=== PATIENT | female | born 1945 | race Caucasian/White ===

== ENCOUNTER 2022-05-02 07:13 | Observation (INO) | payer MEDICARE, SELFPAY ==
[2022-05-02] VITALS (13 sets, daily range): BP systolic 85–186; BP diastolic 64–100; PULSE 70–98; RESP 14–18; TEMP 36.7–36.9; O2SAT 96–99; BMI 24.7; BMI 24.3
--- NOTE | 2022-05-02 07:35 | EKG12_ITS ---
Test Reason : SYNCOPE Blood Pressure : / mmHG Vent. Rate : 077 BPM Atrial Rate : 077 BPM P-R Int : 142 ms QRS Dur : 106 ms QT Int : 386 ms P-R-T Axes : 048 046 039 degrees QTc Int : 436 ms Sinus rhythm with sinus arrhythmia with occasional Premature ventricular complexes Otherwise normal ECG Confirmed by BRITT CAMEJO, DENNIS ([id number]), editor house organ NHUNG KARIMI ([id number]) on 05/07/2022 7:32:06 AM Referred By: POLO Confirmed By:DENNIS DE LA TORRE MD
--- NOTE | 2022-05-02 07:36 | EX.ED.DYSGE1 ---
HPI History of Present Illness Chief Complaint: Syncope Informant: patient Narrative Narrative: 74-year-old female presenting with palpitations episode of syncope. States she has a history of proximal atrial fibrillation and is currently on Xarelto, Cardizem and flecainide for this. She is follows with cardiology and [place] through [facility]. She states she been feeling a little lightheaded for the past week but this morning she felt that her heart was racing and then her head started swimming. She tried to sit down but then passed out. She states she fell against the lower cabinets to the ground and did not hit her head. She notes that she does have a history of passing out when she gets palpitations but has not had this in quite some time. [place] nauseous in route to the ER but was given Zofran and that has since resolved as well. Did have a COVID booster yesterday so she is not sure if this is related. Currently all of her symptoms are resolved and she states she feels better. Denies any black or blood in her stool. Denies any chest pain. Denies any difficulty breathing. No swelling of her legs. No other complaints at this time. States she has not missed any doses of her Xarelto. [facility] Medical History Afib HTN (hypertension) Hypercholesteremia Home Medications atorvastatin 40 mg PO DAILY 05/02/22 [History Last Taken Unknown] diltiazem HCl 120 mg PO Q12H 05/02/22 [History Last Taken Unknown] flecainide 50 mg PO Q12H 05/02/22 [History Last Taken Unknown] lutein 20 mg PO DAILY 05/02/22 [History Last Taken Unknown] rivaroxaban [Xarelto] 20 mg PO DAILY 05/02/22 [History Last Taken Unknown] Allergy/AdvReac Type Severity Reaction Status Date / Time No Known Allergies Allergy Verified 05/02/22 07:13 Surgical History Hx of tonsillectomy Social History Smoking Status: Never smoker ROS ROS ED Constitutional Constitutional ED: Denies chills, fever(s) or sweats Eyes Eyes: Denies blurry vision or change in vision ENT ENT ED: Denies rhinorrhea or sore throat Cardiovascular Cardiovascular: Reports palpitations and racing heartbeat; Denies chest pain Respiratory/Chest Respiratory/Chest: Denies cough, dyspnea or dyspnea on exertion Gastrointestinal Gastrointestinal: Reports nausea; Denies abdominal pain, constipation, diarrhea, melena or vomiting Genitourinary Genitourinary ED: Reports urinary frequency; Denies dysuria or hematuria Musculoskeletal Musculoskeletal: Denies arthralgias or myalgias Integumentary Denies rash Neurologic Neurologic: Denies headache(s), paresthesias or weakness Psychiatric Psychiatric: Denies depression EXAM Physical Exam Const Vital Signs: 05/02/22 07:14 05/02/22 07:20 05/02/22 09:23 Temperature 98.4 F Temperature Source Oral Pulse Rate 77 77 Pulse Rate [Lying] Pulse Rate [Sitting (for 1 minute prior to obtaining)] Pulse Rate [Standing (for 1 minute prior to obtaining)] Respiratory Rate 16 18 Respiratory Effort Normal Non-Labored Respiratory Pattern Normal Blood Pressure 158/89 H 144/64 H Blood Pressure [Lying] Blood Pressure [Sitting (for 1 minute prior to obtaining)] Blood Pressure [Standing (for 1 minute prior to obtaining)] Blood Pressure Mean 112 90 Blood Pressure Mean [Lying] Blood Pressure Mean [Sitting (for 1 minute prior to obtaining)] Blood Pressure Mean [Standing (for 1 minute prior to obtaining)] Pulse Ox 97 97 Oxygen Delivery Method Room Air Room Air 05/02/22 09:31 05/02/22 10:49 05/02/22 10:50 Temperature Temperature Source Pulse Rate 75 Pulse Rate [Lying] 70 75 Pulse Rate [Sitting (for 1 minute prior to obtaining)] 73 74 Pulse Rate [Standing (for 1 minute prior to obtaining)] 98 83 Respiratory Rate 14 Respiratory Effort Respiratory Pattern Blood Pressure 170/68 H Blood Pressure [Lying] 160/78 H 170/68 H Blood Pressure [Sitting (for 1 minute prior to obtaining)] 145/78 H 173/100 H Blood Pressure [Standing (for 1 minute prior to obtaining)] 85/64 L 138/78 H Blood Pressure Mean 102 Blood Pressure Mean [Lying] 105 102 Blood Pressure Mean [Sitting (for 1 minute prior to obtaining)] 100 124 Blood Pressure Mean [Standing (for 1 minute prior to obtaining)] 71 98 Pulse Ox 96 Oxygen Delivery Method Room Air 05/02/22 11:36 Temperature 98.2 F Temperature Source Oral Pulse Rate 71 Pulse Rate [Lying] Pulse Rate [Sitting (for 1 minute prior to obtaining)] Pulse Rate [Standing (for 1 minute prior to obtaining)] Respiratory Rate 16 Respiratory Effort Respiratory Pattern Blood Pressure 186/75 H Blood Pressure [Lying] Blood Pressure [Sitting (for 1 minute prior to obtaining)] Blood Pressure [Standing (for 1 minute prior to obtaining)] Blood Pressure Mean 112 Blood Pressure Mean [Lying] Blood Pressure Mean [Sitting (for 1 minute prior to obtaining)] Blood Pressure Mean [Standing (for 1 minute prior to obtaining)] Pulse Ox 97 Oxygen Delivery Method Room Air Positive well nourished and well developed General Appearance ED: well developed and NAD HEENT Reports moist mucous membranes Negative for trauma Eyes PERRL and EOMs intact bilaterally Neck supple and no JVD Chest Wall inspection of chest normal Resp normal respiratory effort and clear to auscultation bilaterally Cardio regular rate, regular rhythm and no murmurs GI normal to inspection, nondistended, normoactive bowel sounds and non-tender Palpation: soft Extremity normal to inspection General Extremety ED: Negative for edema or tenderness General Extremity: Negative for edema Neuro oriented x3 Neuro Narrative: No focal deficits appreciated Sensorium / Orientation: alert Motor Exam: Negative for general weakness Psych mental status grossly normal Skin no rashes or lesions noted and no wounds MDM MDM MDM Narrative Medical decision making narrative: Patient evaluated for an episode of syncope. Is proceeding with palpitations. She notes has been more lightheaded and had some increased nocturnal urinary frequency for the past week. Does have remote history of atrial fibrillation causing syncope but states that since she has been on her current medication regimen she has not had that issue. Did get her COVID booster yesterday and is not sure if that is related. Work-up largely unremarkable including negative delta high-sensitivity troponin. Given that she has been compliant with her Xarelto not missed any doses have a low suspicion for PE and I do not think a D-dimer is indicated. She is not hypoxic complaining of any shortness of breath. Patient is orthostatic positive initially. She is given a total 1.5 L of IV fluid in the emergency room and continues to be orthostatic and also symptomatic with it. Patient will be admitted for further observation given her persistent orthostasis. Urine culture sent as she does have 10-25 white blood cells with 1+ bacteria however given that she does not have a fever, leukocytosis or other symptoms will defer treatment at this time. This was discussed with admitting physician, Dr. Davis. Lab Data Attestation: I reviewed the patient's lab results. Labs: Laboratory Results - last 24 hr 05/02/22 05/02/22 05/02/22 07:23 07:23 08:09 WBC 9.7 RBC 4.11 L Hgb 12.5 Hct 38.4 MCV 93.4 MCH 30.4 MCHC 32.6 RDW Std Deviation 46.5 H RDW Coeff of [place] 13.6 Plt Count 327 MPV 9.2 Immature Gran % (Auto) 0.500 Neut % (Auto) 80.3 H Lymph % (Auto) 9.5 L [place] % (Auto) 6.9 Eos % (Auto) 2.3 Baso % (Auto) 0.5 Absolute Neuts (auto) 7.8 H Absolute Lymphs (auto) 0.92 Nucleated RBC % 0 Sodium 138 Potassium 4.0 Chloride 102 Carbon Dioxide 28.0 Anion Gap 8 BUN 16 Creatinine 0.88 Estim Creat Clear Calc 51.24 Est GFR (MDRD) Af Amer 80 Est GFR (MDRD) Non-Af 66 BUN/Creatinine Ratio 18.2 Glucose 123 H Calcium 9.6 Troponin I High Sens 6 TSH 3.69 Urine Color Yellow Urine Clarity Sl. Cloudy Urine pH 8.0 Ur Specific [place] 1.015 Urine Protein 15 H Urine Glucose (UA) Normal Urine Ketones Negative Urine Occult Blood Negative Urine Nitrite Negative Urine Bilirubin Negative Urine Urobilinogen Normal Ur Leukocyte Esterase 100 H Urine RBC 0 SEEN Urine WBC 10-25 SEEN Ur Squamous Epith Cells 0-5 SEEN Urine Bacteria 1+ Urine Mucus 0 SEEN 05/02/22 09:50 WBC RBC Hgb Hct MCV MCH MCHC RDW Std Deviation RDW Coeff of [place] Plt Count MPV Immature Gran % (Auto) Neut % (Auto) Lymph % (Auto) [place] % (Auto) Eos % (Auto) Baso % (Auto) Absolute Neuts (auto) Absolute Lymphs (auto) Nucleated RBC % Sodium Potassium Chloride Carbon Dioxide Anion Gap BUN Creatinine Estim Creat Clear Calc Est GFR (MDRD) Af Amer Est GFR (MDRD) Non-Af BUN/Creatinine Ratio Glucose Calcium Troponin I High Sens 9 TSH Urine Color Urine Clarity Urine pH Ur Specific [place] Urine Protein Urine Glucose (UA) Urine Ketones Urine Occult Blood Urine Nitrite Urine Bilirubin Urine Urobilinogen Ur Leukocyte Esterase Urine RBC Urine WBC Ur Squamous Epith Cells Urine Bacteria Urine Mucus Radiography Chest X-Ray - ED: 1 View, Read by ED Physician, Read by Radiologist and No Acute Disease Diagnostic Testing: Clinical Impression(s) from Imaging Studies Chest X-Ray 05/02/22 07:45 IMPRESSION: Hyperinflation. No acute abnormality is seen. Electronically Signed: Palmer Wright MD at 8:01 EDT , Rhythm Strip Rhythm Strip: Sinus Rhythm Rate: 77 Ectopy: PVC(s) EKG Initial EKG: Attestation: I personally reviewed and interpreted this EKG as follows: Interpretation: Sinus Rhythm Comments: Normal sinus rhythm with sinus arrhythmia and PVCs at a rate of 77 Normal intervals Normal axis Normal ST segments Discharge Plan Triage Chief Complaint: Syncope ED Provider: Frida Mg Dx/Rx/DC Orders Clinical Impression: Syncope and collapse, Orthostasis, History of atrial fibrillation, Chronic anticoagulation Primary Care Provider: Deven Dunaway Disposition Disposition: Acute Care [facility]
[2022-05-02 07:44] LABS: Absolute Lymphocyte Count 0.92 X10^3/uL (0.83-4.51); Absolute Neutrophil Count 7.8 X10^3/uL (2.0-7.7); Basophil# 0.05 X10^3/uL; Basophil% 0.5 % (0-1); Eosinophil# 0.22 X10^3/uL; Eosinophils% 2.3 % (0-5); Hematocrit 38.4 % (37-47); Hemoglobin 12.5 g/dL (12.0-15.0); Lymphocyte # 0.92 X10^3/ul (0.83-4.51); Lymphocyte % 9.5 % (19-41); Mean Corp Hgb Conc 32.6 g/dL (32-36); Mean Corpuscular Hgb 30.4 pg (27.0-32.0); Mean Corpuscular Volume 93.4 fL (81-99); Mean Platelet Vol. 9.2 fl (6.2-12.0); Monocyte# 0.67 X10^3/uL; Monocyte% 6.9 % (0-10); NRBC Flagged by Analyzer 0 % (0-5); Neutrophil # 7.76 X10^3/uL (2.7-7.7); Neutrophil % 80.3 % (47-70); Platelet Count 327 K/mm3 (150-450); RBC Distribution Width CV 13.6 % (11.6-14.6); RBC Distribution Width SD 46.5 fl (35.1-43.9); Red Blood Count 4.11 M/mm3 (4.2-5.4); White Blood Count 9.7 K/mm3 (4.4-11.0)
--- NOTE | 2022-05-02 07:45 | RAD_ITS ---
STUDY: X-RAY CHEST REASON FOR EXAM: Female, 76 years old. Syncope TECHNIQUE: Single AP portable view of the chest. COMPARISON: None. FINDINGS: EKG electrodes are seen. Hyperinflation. There is no demonstrated pleural abnormality. Normal size heart. Normal mediastinum and praful. Normal visualized pulmonary arteries. There is atherosclerotic calcification of the aortic arch with tortuosity. There are diffuse degenerative changes of the visualized thoracic spine. There is degenerative osteoarthritis of the bilateral shoulders. There is no demonstrated abnormality of the visualized soft tissue structures of the upper abdomen. RAD/Chest 1 View (Portable) IMPRESSION: Hyperinflation. No acute abnormality is seen. Electronically Signed: Palmer Wright MD at 8:01 EDT ,
[2022-05-02 08:09] LABS: Anion Gap 8 (5-15); BUN 16 mg/dL (7-18); BUN/Creat Ratio 18.2 RATIO (10-20); Calcium,Total 9.6 mg/dL (8.5-10.1); Chloride 102 mmol/L (98-107); Creatinine, Serum 0.88 mg/dL (0.55-1.02); EST Glomerular Filtration Rate 66 mL/min (>60); Est Glom Filt Rate - Afr Amer 80 mL/min (>60); Estimated Creatinine Clearance 51.24 ml/min; Glucose 123 mg/dL (74-106); Sodium Level 138 mmol/L (136-145); Thyroid Stim Hormone (TSH) 3.69 uIU/mL (0.358-3.74); Troponin-I HS (w/2H Reflex) 6 pg/mL (3.0-54.0)
[2022-05-02 08:14] LABS: Color, Urine Yellow (Yellow); Glucose, Dipstick Normal (Normal); Ketone-Dipstick Negative (Negative); Leukocyte Esterase-Dipstick 100 /ul (Negative); Mucous, Urine 0 SEEN /hpf (<or=2+); Nitrite-Dipstick Negative (Negative); Occult Blood-Urine Negative /ul (Negative); Protein-Dipstick 15 mg/dl (Negative); Red Blood Cells-Urine 0 SEEN /hpf (0-5); Specific Gravity, Urine 1.015 (1.002-1.030); Urine Bilirubin Dipstick Negative (Negative); Urine Clarity Sl. Cloudy (Clear); Urine Urobilinogen Normal (Normal)
[2022-05-02 08:20] LABS: Bacteria 1+ /hpf (None Seen); Squamous Epithelial Cells - UA 0-5 SEEN /hpf (5-10); White Blood Cells 10-25 SEEN /hpf (0-5)
[2022-05-02 09:43] LABS: Reflex Troponin-HS? (from REC) Y
[2022-05-02] MEDS: 0.9% Normal Saline 1,000 ML 999 ML IV (09:53)
[2022-05-02 10:13] LABS: Troponin-I HS 9 pg/mL (3.0-54.0)
--- NOTE | 2022-05-02 13:11 | HP.PCM.HOS_ITS ---
HPI - General General Date of Admission: 05/02/22 Date of Service: 05/02/22 Chief Complaint: syncope HPI Narrative EDWAR HURD, is a 76 F who presents with syncope. Patient was normocephalic and then today felt that her A. fib was acting up and felt dizzy and then passed out. Came to and overall felt better. Present to the emergency room and was not in A. fib but normal sinus. Did have orthostatic vital signs performed were closure dropped down to the 80s. Received fluids was still orthostatic and still symptomatic. Hospital service was contacted for admission. Patient has been complaining of progressive dyspnea with exertion. Denies any chest pain. [facility] Medical History Afib HTN (hypertension) Hypercholesteremia Home Medications atorvastatin 40 mg PO DAILY 05/02/22 [History Last Taken Unknown] diltiazem HCl 120 mg PO Q12H 05/02/22 [History Last Taken Unknown] flecainide 50 mg PO Q12H 05/02/22 [History Last Taken Unknown] lutein 20 mg PO DAILY 05/02/22 [History Last Taken Unknown] rivaroxaban [Xarelto] 20 mg PO DAILY 05/02/22 [History Last Taken Unknown] Allergy/AdvReac Type Severity Reaction Status Date / Time No Known Allergies Allergy Verified 05/02/22 07:13 Family History (Updated 05/02/22 @ 13:[address] Hieu Davis DO) Other CAD (coronary artery disease) Surgical History Hx of tonsillectomy Social History Smoking Status: Never smoker ROS ROS Narrative All review of systems were negative except as mentioned above in the history of present illness and the other review of systems. Vital Signs Vital Signs Vital Signs: 05/02/22 07:14 05/02/22 07:20 05/02/22 09:23 Temperature 36.9 C Temperature Source Oral Pulse Rate 77 77 Pulse Rate [Lying] Pulse Rate [Sitting (for 1 minute prior to obtaining)] Pulse Rate [Standing (for 1 minute prior to obtaining)] Respiratory Rate 16 18 Respiratory Effort Normal Non-Labored Respiratory Pattern Normal Blood Pressure 158/89 H 144/64 H Blood Pressure [Lying] Blood Pressure [Sitting (for 1 minute prior to obtaining)] Blood Pressure [Standing (for 1 minute prior to obtaining)] Blood Pressure Mean 112 90 Blood Pressure Mean [Lying] Blood Pressure Mean [Sitting (for 1 minute prior to obtaining)] Blood Pressure Mean [Standing (for 1 minute prior to obtaining)] Blood Pressure Source Blood Pressure Position Blood Pressure Location Pulse Ox 97 97 Oxygen Delivery Method Room Air Room Air 05/02/22 09:31 05/02/22 10:49 05/02/22 10:50 Temperature Temperature Source Pulse Rate 75 Pulse Rate [Lying] 70 75 Pulse Rate [Sitting (for 1 minute prior to obtaining)] 73 74 Pulse Rate [Standing (for 1 minute prior to obtaining)] 98 83 Respiratory Rate 14 Respiratory Effort Respiratory Pattern Blood Pressure 170/68 H Blood Pressure [Lying] 160/78 H 170/68 H Blood Pressure [Sitting (for 1 minute prior to obtaining)] 145/78 H 173/100 H Blood Pressure [Standing (for 1 minute prior to obtaining)] 85/64 L 138/78 H Blood Pressure Mean 102 Blood Pressure Mean [Lying] 105 102 Blood Pressure Mean [Sitting (for 1 minute prior to obtaining)] 100 124 Blood Pressure Mean [Standing (for 1 minute prior to obtaining)] 71 98 Blood Pressure Source Blood Pressure Position Blood Pressure Location Pulse Ox 96 Oxygen Delivery Method Room Air 05/02/22 11:36 05/02/22 12:48 05/02/22 13:09 Temperature 36.8 C 36.7 C Temperature Source Oral Temporal Pulse Rate 71 71 71 Pulse Rate [Lying] Pulse Rate [Sitting (for 1 minute prior to obtaining)] Pulse Rate [Standing (for 1 minute prior to obtaining)] Respiratory Rate 16 16 Respiratory Effort Respiratory Pattern Blood Pressure 186/75 H 185/75 H Blood Pressure [Lying] Blood Pressure [Sitting (for 1 minute prior to obtaining)] Blood Pressure [Standing (for 1 minute prior to obtaining)] Blood Pressure Mean 112 111 Blood Pressure Mean [Lying] Blood Pressure Mean [Sitting (for 1 minute prior to obtaining)] Blood Pressure Mean [Standing (for 1 minute prior to obtaining)] Blood Pressure Source Monitor Blood Pressure Position Semi-Fowlers Blood Pressure Location Left Arm Pulse Ox 97 99 Oxygen Delivery Method Room Air Room Air Weight Weight: 70.4 kg Body Mass Index (BMI) 24.3 Physical Exam Const alert General Appearance: cooperative Resp normal respiratory effort, no retractions, no use of accessory muscles and clear to auscultation bilaterally Cardio regular rate, regular rhythm, S1 normal heart sound and S2 normal heart sound GI normal to inspection, nondistended, normoactive bowel sounds, soft to palpation, non-tender and non-distended Extremity normal to inspection Neuro Sensorium / Orientation: awake and alert Results Lab / Micro Data Result Diagrams: 05/02/22 07:23 05/02/22 07:23 Labs: Laboratory Results - last 24 hr 05/02/22 07:23: WBC 9.7, RBC 4.11 L, Hgb 12.5, Hct 38.4, MCV 93.4, MCH 30.4, MCHC 32.6, RDW Std Deviation 46.5 H, RDW Coeff of Gordon 13.6, Plt Count 327, MPV 9.2, Immature Gran % (Auto) 0.500, Neut % (Auto) 80.3 H, Lymph % (Auto) 9.5 L, [place] % (Auto) 6.9, Eos % (Auto) 2.3, Baso % (Auto) 0.5, Absolute Neuts (auto) 7.8 H, Absolute Lymphs (auto) 0.92, Nucleated RBC % 0 05/02/22 07:23: Sodium 138, Potassium 4.0, Chloride 102, Carbon Dioxide 28.0, Anion Gap 8, BUN 16, Creatinine 0.88, Estim Creat Clear Calc 51.24, Est GFR (MDRD) Af Amer 80, Est GFR (MDRD) Non-Af 66, BUN/Creatinine Ratio 18.2, Glucose 123 H, Calcium 9.6, Troponin I High Sens 6, TSH 3.69 05/02/22 08:09: Urine Color Yellow, Urine Clarity Sl. Cloudy, Urine pH 8.0, Ur Specific [place] 1.015, Urine Protein 15 H, Urine Glucose (UA) Normal, Urine Ket ones Negative, Urine Occult Blood Negative, Urine Nitrite Negative, Urine Bilirubin Negative, Urine Urobilinogen Normal, Ur Leukocyte Esterase 100 H, Urine RBC 0 SEEN, Urine WBC 10-25 SEEN, Ur Squamous Epith Cells 0-5 SEEN, Urine Bacteria 1+, Urine Mucus 0 SEEN 05/02/22 09:50: Troponin I High Sens 9 Rhythm Strip Rhythm Strip: Sinus Rhythm Rate: 77 Ectopy: PVC(s) Radiology Impression Chest X-Ray 05/02/22 07:45 IMPRESSION: Hyperinflation. No acute abnormality is seen. Electronically Signed: Palmer Wright MD at 8:01 EDT , Assessment & Plan Assessment/Plan (1) Syncope and collapse: (2) Orthostasis: PLAN: 1. Syncope * Suspect due to orthostatic hypotension * Cannot rule out A. fib being etiology though currently is normal sinus rhythm. * Did receive IV fluids in the emergency room. * Currently hypertensive. We will hold off on additional fluids and recheck orthostatic vital signs in the morning. 2. Dyspnea on exertion * Chronic * But worsening * Check stress test 3. Chronic atrial fibrillation * Paroxysmal * Continue with diltiazem, flecainide * Anticoagulated with rivaroxaban Charges/Coding Visit Charges OBSV E&M: 87524 Initial observation care L2
[2022-05-02 14:35] LABS: Troponin-I HS 12 pg/mL (3.0-54.0)
[2022-05-02] MEDS: Rivaroxaban 20 MG Tablet PO (18:12)
[2022-05-02] MEDS: Flecainide 100 MG Tablet 50 MG PO (21:59)
[2022-05-02] MEDS: dilTIAZem CD 120 MG Capsule PO (21:59)
[2022-05-02] MEDS: 0.9% Saline Lock 10 ML Syringe IV (22:00)
[2022-05-03] VITALS (8 sets, daily range): BP systolic 117–206; BP diastolic 77–97; PULSE 67–97; RESP 16; TEMP 36.6–36.9; O2SAT 96–98
[2022-05-03] MEDS: Acetaminophen 325 MG Tablet 650 MG PO (00:58)
--- NOTE | 2022-05-03 05:55 | EKG12_ITS ---
Test Reason : AM EKG Blood Pressure : / mmHG Vent. Rate : 067 BPM Atrial Rate : 067 BPM P-R Int : 150 ms QRS Dur : 102 ms QT Int : 398 ms P-R-T Axes : 043 049 045 degrees QTc Int : 420 ms Normal sinus rhythm Normal ECG Confirmed by ARABELLA CAMEJO, SUDHEER ([id number]), editor trade journal NHUNG KARIMI ([id number]) on 05/07/2022 7:27:13 AM Referred By: REHANA Confirmed By:SUDHEER BELL MD
--- NOTE | 2022-05-03 07:56 | PN.HOSP_ITS ---
Subjective Subjective Feels good. Not dizzy upon standing. Objective Data Objective Data Vital Signs: Vital Signs Temp Pulse Resp BP Pulse Ox 36.6 C 70 16 181/77 H 96 05/03/22 04:00 05/03/22 07:00 05/03/22 04:00 05/03/22 04:05 05/03/22 04:00 Oxygen Delivery Method Room Air Weight: 70.4 kg Body Mass Index (BMI) 24.3 Intake & Output: Intake and Output for Last 24 Hours 05/01/22 05/02/22 05/03/22 23:59 23:59 23:59 Intake Total 1740 / 1740 Balance 1740 / 1740 Lab / Micro Data Result Diagrams: 05/02/22 07:23 05/02/22 07:23 Labs: Laboratory Results - last 24 hr 05/02/22 07:23: Sodium 138, Potassium 4.0, Chloride 102, Carbon Dioxide 28.0, Anion Gap 8, BUN 16, Creatinine 0.88, Estim Creat Clear Calc 51.24, Est GFR (MDRD) Af Amer 80, Est GFR (MDRD) Non-Af 66, BUN/Creatinine Ratio 18.2, Glucose 123 H, Calcium 9.6, Troponin I High Sens 6, TSH 3.69 05/02/22 08:09: Urine Color Yellow, Urine Clarity Sl. Cloudy, Urine pH 8.0, Ur Specific [place] 1.015, Urine Protein 15 H, Urine Glucose (UA) Normal, Urine Ketones Negative, Urine Occult Blood Negative, Urine Nitrite Negative, Urine Bilirubin Negative, Urine Urobilinogen Normal, Ur Leukocyte Esterase 100 H, Urine RBC 0 SEEN, Urine WBC 10-25 SEEN, Ur Squamous Epith Cells 0-5 SEEN, Urine Bacteria 1+, Urine Mucus 0 SEEN 05/02/22 09:50: Troponin I High Sens 9 05/02/22 14:00: Troponin I High Sens 12 Radiography Diagnostic Testing: Radiology Impression Chest X-Ray 05/02/22 07:45 IMPRESSION: Hyperinflation. No acute abnormality is seen. Electronically Signed: Palmer Wright MD at 8:01 EDT , Rhythm Strip Rhythm Strip: Sinus Rhythm Rate: 77 Ectopy: PVC(s) Physical Exam Const alert and no apparent distress Resp normal respiratory effort, no retractions, no use of accessory muscles and clear to auscultation bilaterally Cardio regular rate, regular rhythm, S1 normal heart sound and S2 normal heart sound GI normal to inspection, nondistended, normoactive bowel sounds, soft to palpation, non-tender and non-distended Extremity normal to inspection Assessment & Plan Assessment/Plan (1) Syncope and collapse: (2) Orthostasis: PLAN: 1. Syncope * Suspect due to orthostatic hypotension * Cannot rule out A. fib being etiology though currently is normal sinus rhythm. * Did receive IV fluids in the emergency room. * Currently hypertensive. We will hold off on additional fluids and recheck orthostatic vital signs in the morning. 2. Dyspnea on exertion * Chronic * But worsening * Check stress test 3. Chronic atrial fibrillation * Paroxysmal * Continue with diltiazem, flecainide * Anticoagulated with rivaroxaban 4. Orthostatic hypotension * ongoing * check cortisol Charges/Coding Visit Charges OBSV E&M: 17090 Subsequent observation care L2
[2022-05-03] MEDS: Flecainide 100 MG Tablet 50 MG PO (08:50)
[2022-05-03] MEDS: dilTIAZem CD 120 MG Capsule PO (10:50)
--- NOTE | 2022-05-03 14:21 | STRESSREP ---
Stress Test Report Lexiscan myocardial perfusion stress test. Indication; 76-year-old female with history of paroxysmal atrial fibrillation, presented to the ER at the [facility] with syncopal episode. Also had symptoms of dyspnea on exertion Patient was on medical therapy with Cardizem, Tambocor, Xarelto and has hyperlipidemia and has been on Lipitor. Based on clinical presentation she is scheduled for Lexiscan sestamibi stress test. Stress protocol: Resting EKG demonstrates. Normal sinus rhythm. 0.4 mg of regadenoson was infused per usual protocol followed by rapid intravenous saline flush injection continuous EKG monitoring was performed. The maximum heart rate attained was 114 bpm which was 80% of maximum predicted heart . Stress EKG showed, no significant change from the resting EKG, with maximum heart rate of 114bpm. Arrhythmia: Frequent episodes of premature ventricular complexes/PVCs Symptoms: Patient had no symptoms of chest pain Blood pressure at rest: 158/88 mmHg blood pressure at the end of stress: 158/88 mmHg Myocardial perfusion protocol. 10 mCi ]of Technetium 99m Sestamibi was injected at rest. [ 0.4 mg ]of Regadenoson was infused per usual protocol peak infusion 31.9 mCi ]of Technetium 99m sestamibi was injected. Stress images were obtained stress and rest images were reconstructed and compared in the short axis vertical and horizontal long axis. Gated images were also obtained Perfusion SPECT analysis: Review of the images demonstrate normal uptake of sestamibi at rest, post stress images demonstrate similar uptake of sestamibi to the resting images, homogeneous tracer uptake With no evidence of reversible myocardial ischemia. Reduced Gated SPECT analysis: The gated SPECT images revealed normal LV systolic function Normal LV wall motion. Calculated ejection fraction 73%. Conclusion: Negative Lexiscan sestamibi myocardial perfusion study for reversible myocardial ischemia Normal LV systolic function Gabby Dutton MD,FACC,[facility]
--- NOTE | 2022-05-03 14:39 | PCM.DC ---
Discharge Instructions Diet Discharge Diet: No restrictions Activity Additional Activity Instructions:: get up slowly Dressing / Incision Call your doctor if you observe: Shortness of breath and Dizziness Follow Up Care Test Results: Test results from this visit will be discussed in further detail at your follow-up appointment, if applicable. Discharge Plan Admission Admit Date/Time: 05/02/22 13:08 Primary Reason for Your Visit: syncope Attending Provider: Hieu Davis Primary Care Provider: Deven Dunaway Discharge Orders/Prescriptions Prescriptions: Continued atorvastatin 40 mg Tablet 40 mg PO DAILY RF: 0 diltiazem HCl 120 mg Capsule,Extended Release 12 Hr 120 mg PO Q12H RF: 0 flecainide 50 mg Tablet 50 mg PO Q12H RF: 0 Xarelto 20 mg Tablet 20 mg PO DAILY RF: 0 lutein 20 mg Tablet 20 mg PO DAILY RF: 0 Referrals / Follow Up: Deven Dunaway MD [Primary Care Provider] - Within 2 Weeks Disposition Disposition (needs filled in before D/C Order can be placed): Home, Self Care
--- NOTE | 2022-05-03 14:51 | PCM.DC.SUM ---
Providers Date of Admission: 05/02/22 Primary Care Physician: Dr. Deven Dunaway MD Reason For Visit: SYNCOPE ORTHOSTATIC Diagnosis Discharge Diagnosis (1) Syncope and collapse: Status: Acute Code(s): R55 - Syncope and collapse (2) Orthostasis: Status: Acute Code(s): I95.1 - Orthostatic hypotension Medications at Discharge Home Medications Xarelto 20 mg PO DAILY 05/02/22 atorvastatin 40 mg PO DAILY 05/02/22 diltiazem HCl 120 mg PO Q12H 05/02/22 flecainide 50 mg PO Q12H 05/02/22 lutein 20 mg PO DAILY 05/02/22 Hospital Course Operations None Procedures Stress test Summary of Care Provided Minutes Spent on Discharge: 32 Hospital Course: 1. Syncope Suspect due to orthostatic hypotension Cannot rule out A. fib being etiology though currently is normal sinus rhythm. Did receive IV fluids in the emergency room. Currently hypertensive. We will hold off on additional fluids and recheck orthostatic vital signs in the morning. 2. Dyspnea on exertion Chronic But worsening Stress test negative 3. Chronic atrial fibrillation Paroxysmal Continue with diltiazem, flecainide Anticoagulated with rivaroxaban 4. Orthostatic hypotension ongoing cortisol negative currently asymptomatic advised to get up slowly. 5.HTN BP has been high, unfortunately pt is profoundly orthostatic. Weight / BMI Weight Weight: 70.4 kg Body Mass Index (BMI) 24.3 ABG / Lab / Microbiology Data Result Diagrams: 05/02/22 07:23 05/02/22 07:23 Laboratory: Laboratory Results - last 24 hr 05/03/22 08:23: Cortisol 15.20 Microbiology: Microbiology 05/02/22 08:09 Urine, Clean Catch Urine Culture - Preliminary Culture exhibits no growth. D/C Instructions Discharge Diet: No restrictions Additional Activity Instructions: get up slowly Call your doctor if you observe: Shortness of breath and Dizziness Meaningful Use Info Meaningful Use Diagnoses (Choose all that apply): None applicable Discharge Plan Admission Admit Date/Time: 05/02/22 13:08 Primary Reason for Your Visit: syncope Attending Provider: Hieu Davis Primary Care Provider: Deven Dunaway Discharge Orders/Prescriptions Prescriptions: Continued atorvastatin 40 mg Tablet 40 mg PO DAILY RF: 0 diltiazem HCl 120 mg Capsule,Extended Release 12 Hr 120 mg PO Q12H RF: 0 flecainide 50 mg Tablet 50 mg PO Q12H RF: 0 Xarelto 20 mg Tablet 20 mg PO DAILY RF: 0 lutein 20 mg Tablet 20 mg PO DAILY RF: 0 Referrals / Follow Up: Deven Dunaway MD [Primary Care Provider] - Within 2 Weeks Disposition Disposition (needs filled in before D/C Order can be placed): Home, Self Care Charges/Coding Visit Charges OBSV E&M: 10754 Observation care discharge
--- NOTE | 2022-05-03 15:05 | CASEMGMT ---
This RN JERSON to room with CHOE form, explanation done-pt voices understanding, and signs CHOE form. Original to chart and copy to pt. Pt voices no further questions/concerns/needs. [place] CM
== END 2022-05-03 14:48 | disposition home or self-care (01) ==
LOC: ED 08:13 → PCU 11:59
PROVIDERS: Emergency Provider Emergency Medicine; PCP Family Medicine
DX: I95.1 Orthostatic hypotension (principal); I48.0 Paroxysmal atrial fibrillation; E78.00 Pure hypercholesterolemia, unspecified; I10 Essential (primary) hypertension; R00.2 Palpitations; R35.0 Frequency of micturition; Z79.01 Long term (current) use of anticoagulants; Z79.899 Other long term (current) drug therapy; Z82.49 Family history of ischemic heart disease and other diseases of the circulatory system; R06.00 Dyspnea, unspecified
CPT/HCPCS: 36415; 71045; 78452; 80048; 81001; 82533; 84443; 84484; 85025; 87086; 87088; 93005; 93017; 96360; 96361; 99218; 99285; A9500; J7030; J7040; A4216; G0378; J2785

== ENCOUNTER 2022-07-06 14:24 | Emergency (ER) | payer MEDICARE, SELFPAY ==
[2022-07-06] VITALS (9 sets, daily range): BP systolic 98–160; BP diastolic 46–82; PULSE 81–110; RESP 14–22; TEMP 37.2; O2SAT 96–99; BMI 26.8
--- NOTE | 2022-07-06 14:32 | EKG12_ITS ---
Test Reason : SVT Blood Pressure : / mmHG Vent. Rate : 091 BPM Atrial Rate : 091 BPM P-R Int : 132 ms QRS Dur : 098 ms QT Int : 346 ms P-R-T Axes : 034 046 070 degrees QTc Int : 425 ms Normal sinus rhythm Normal ECG Confirmed by ARABELLA CAMEJO, SUDHEER ([id number]), development editor NHUNG KARIMI ([id number]) on 07/09/2022 10:16:54 AM Referred By: LIAN/DOUGLAS Confirmed By:SUDHEER BELL MD
[2022-07-06 14:53] LABS: Absolute Lymphocyte Count 0.45 X10^3/uL (0.83-4.51); Absolute Neutrophil Count 8.6 X10^3/uL (2.0-7.7); Basophil# 0.02 X10^3/uL; Basophil% 0.2 % (0-1); Eosinophil# 0.01 X10^3/uL; Eosinophils% 0.1 % (0-5); Hematocrit 40.5 % (37-47); Lymphocyte # 0.45 X10^3/ul (0.83-4.51); Lymphocyte % 4.8 % (19-41); Mean Corp Hgb Conc 32.1 g/dL (32-36); Mean Corpuscular Hgb 30.1 pg (27.0-32.0); Mean Corpuscular Volume 93.8 fL (81-99); Mean Platelet Vol. 8.9 fl (6.2-12.0); Monocyte# 0.27 X10^3/uL; Monocyte% 2.9 % (0-10); NRBC Flagged by Analyzer 0 % (0-5); Neutrophil # 8.62 X10^3/uL (2.7-7.7); Neutrophil % 91.7 % (47-70); POSITIVE DIFFERENTIAL YES; Platelet Count 225 K/mm3 (150-450); RBC Distribution Width CV 14.1 % (11.6-14.6); RBC Distribution Width SD 48.7 fl (35.1-43.9); Red Blood Count 4.32 M/mm3 (4.2-5.4); White Blood Count 9.4 K/mm3 (4.4-11.0)
[2022-07-06 14:57] LABS: Anion Gap 8 (5-15); BUN 19 mg/dL (7-18); BUN/Creat Ratio 17.8 RATIO (10-20); Calcium,Total 8.8 mg/dL (8.5-10.1); Chloride 99 mmol/L (98-107); Creatinine, Serum 1.07 mg/dL (0.55-1.02); EST Glomerular Filtration Rate 53 mL/min (>60); Est Glom Filt Rate - Afr Amer 64 mL/min (>60); Estimated Creatinine Clearance 43.71 ml/min; Glucose 178 mg/dL (74-106); Potassium 3.5 mmol/L (3.5-5.1); Sodium Level 136 mmol/L (136-145); Troponin-I HS (w/2H Reflex) 27 pg/mL (3.0-54.0)
--- NOTE | 2022-07-06 15:00 | EDS_ITS ---
HPI <GAMA Siegel - Last Filed: 07/06/22 18:56> History of Present Illness Chief Complaint: Syncope Narrative Narrative: 76-year-old female with history of atrial fibrillation on Xarelto, hypertension who sees cardiology at [facility] in [facility] presents to the emergency department after a syncopal episode, rapid heart rate. Per the , the patient has been having nausea and vomiting for the last 12 hours, every time the patient sat up or try to walk she became very dizzy, sweaty, feeling of dizziness that she describes as almost passing out. Patient had multiple syncopal episodes this morning when he called the ambulance, the ambulance noticed the patient had a rapid heartbeat concerning for SVT versus A. fib with RVR, due to her being unresponsive, they gave her Versed then shocked her putting her in a normal rhythm. Patient has been normal sinus rhythm since, patient denies any pain however still feels weak. PFSH <GAMA Siegel - Last Filed: 07/06/22 18:56> [facility] Medical History Afib HTN (hypertension) Hypercholesteremia Home Medications atorvastatin 40 mg tablet 40 mg PO DAILY cholesterol 05/02/22 [History Last Taken Unknown] diltiazem HCl 120 mg capsule,extended release 12 hr 120 mg PO Q12H heart rate 05/02/22 [History Last Taken Unknown] flecainide 50 mg tablet 50 mg PO Q12H heart rate 05/02/22 [History Last Taken Unknown] lutein 20 mg tablet 20 mg PO DAILY vitamin 05/02/22 [History Last Taken Unknown] rivaroxaban 20 mg tablet (Xarelto) 20 mg PO DAILY blood thinner 05/02/22 [History Last Taken Unknown] Allergy/AdvReac Type Severity Reaction Status Date / Time No Known Allergies Allergy Verified 05/02/22 07:13 Family History (Updated 05/02/22 @ 13:[address] Hieu Davis DO) Other CAD (coronary artery disease) Surgical History Hx of tonsillectomy Social History Smoking Status: Never smoker ROS <GAMA Siegel - Last Filed: 07/06/22 18:56> ROS ED ROS Narrative Constitutional: Negative for fever, chills, weight loss. Positive weakness Eyes: Negative for vision loss, vision change, double vision ENT: Negative for any sore throat, ear pain, congestion Cardiovascular: Negative for any chest pain, tightness, . Positive palpitations Respiratory: Negative for any cough, sputum production, hemoptysis, dyspnea, dyspnea on exertion, orthopnea Gastrointestinal: Negative for any abdominal pain, diarrhea, constipation, blood in stool, blood in vomit. Positive for nausea and vomiting : Negative for any urinary frequency, dysuria, retention, blood in urine Muscle skeletal: Negative for any muscle joint pain, stiffness, myalgias, arthralgias, neck pain, back pain Neurological: Negative for any headache, syncope, numbness or tingling, dizziness Skin: Negative for any rashes, lumps, itching, abrasions, lacerations Psychiatric: Negative for any depression, anxiety, stress, suicidal ideation, homicidal ideation Hematologic: Negative for any easy bruising, excessive bruising, easy bleeding Allergies: Negative for any eczema, hives, rash EXAM <GAMA Siegel - Last Filed: 07/06/22 18:56> Physical Exam Narrative Exam Narrative: Vital signs reviewed. Patient is alert and oriented x4. Patient is in normal sinus rhythm. HEET: Head normocephalic atraumatic, TMs clear bilaterally. Posterior pharynx is clear, moist mucous membranes. Nares clear bilaterally. Pupils equal round react to light. Patient does have a subconjunctival hemorrhage to the left eye from vomiting. Neck: Supple with no lymphadenopathy or tenderness. No signs of meningismus, negative jolt sign. Cardiac: Regular rate and rhythm no murmurs gallops or rubs, equal peripheral pulses bilaterally. Respiratory: Lungs clear to auscultation bilaterally. No chest tenderness. Abdomen: Soft, nontender, nondistended. No abdominal bruit or pulsatile masses. No hepatosplenomegaly Extremities: No peripheral edema, no signs of gross trauma or deformity. Active full range of motion of all extremities. Neuro: Cranial nerves II through XII intact, no focal neurological deficits. Skin: Clean dry and intact with no rash, purpura, petechiae, vesicles or pustules. Backs/flank: No CVA tenderness, no midline spinal tenderness, no deformity. Psych: Normal mood and affect. No SI, HI or acute psychosis. Const Vital Signs: 07/06/22 14:24 07/06/22 14:30 07/06/22 14:36 Temperature 98.9 F Temperature Source Oral Pulse Rate 100 Pulse Rate [Lying] Pulse Rate [Sitting (for 1 minute prior to obtaining)] Pulse Rate [Standing (for 1 minute prior to obtaining)] Respiratory Rate 18 Respiratory Effort Normal Respiratory Pattern Normal Blood Pressure 125/67 H Blood Pressure [Lying] Blood Pressure [Sitting (for 1 minute prior to obtaining)] Blood Pressure [Standing (for 1 minute prior to obtaining)] Blood Pressure Mean 86 Blood Pressure Mean [Lying] Blood Pressure Mean [Sitting (for 1 minute prior to obtaining)] Blood Pressure Mean [Standing (for 1 minute prior to obtaining)] Pulse Ox 97 96 Oxygen Delivery Method Room Air Room Air 07/06/22 15:49 07/06/22 15:49 07/06/22 16:14 Temperature Temperature Source Pulse Rate 88 86 Pulse Rate [Lying] 91 Pulse Rate [Sitting (for 1 minute prior to obtaining)] 98 Pulse Rate [Standing (for 1 minute prior to obtaining)] 98 Respiratory Rate 18 16 Respiratory Effort Respiratory Pattern Blood Pressure 142/68 H 136/74 H Blood Pressure [Lying] 125/57 H Blood Pressure [Sitting (for 1 minute prior to obtaining)] 112/74 Blood Pressure [Standing (for 1 minute prior to obtaining)] 98/72 Blood Pressure Mean 92 94 Blood Pressure Mean [Lying] 79 Blood Pressure Mean [Sitting (for 1 minute prior to obtaining)] 86 Blood Pressure Mean [Standing (for 1 minute prior to obtaining)] 80 Pulse Ox 96 96 Oxygen Delivery Method Room Air Room Air 07/06/22 17:00 07/06/22 17:43 07/06/22 18:00 Temperature Temperature Source Pulse Rate 87 92 Pulse Rate [Lying] 87 Pulse Rate [Sitting (for 1 minute prior to obtaining)] 93 Pulse Rate [Standing (for 1 minute prior to obtaining)] 110 H Respiratory Rate 14 14 Respiratory Effort Respiratory Pattern Blood Pressure 143/82 H 136/78 H Blood Pressure [Lying] 143/72 H Blood Pressure [Sitting (for 1 minute prior to obtaining)] 144/74 H Blood Pressure [Standing (for 1 minute prior to obtaining)] 106/46 L Blood Pressure Mean 102 97 Blood Pressure Mean [Lying] 95 Blood Pressure Mean [Sitting (for 1 minute prior to obtaining)] 97 Blood Pressure Mean [Standing (for 1 minute prior to obtaining)] 66 Pulse Ox 98 98 Oxygen Delivery Method Room Air Room Air 07/06/22 19:00 Temperature Temperature Source Pulse Rate 81 Pulse Rate [Lying] Pulse Rate [Sitting (for 1 minute prior to obtaining)] Pulse Rate [Standing (for 1 minute prior to obtaining)] Respiratory Rate 22 H Respiratory Effort Respiratory Pattern Blood Pressure 160/78 H Blood Pressure [Lying] Blood Pressure [Sitting (for 1 minute prior to obtaining)] Blood Pressure [Standing (for 1 minute prior to obtaining)] Blood Pressure Mean 105 Blood Pressure Mean [Lying] Blood Pressure Mean [Sitting (for 1 minute prior to obtaining)] Blood Pressure Mean [Standing (for 1 minute prior to obtaining)] Pulse Ox 96 Oxygen Delivery Method Room Air <Dr. Sanjya Michaud MD - Last Filed: 07/06/22 19:50> Physical Exam Const Vital Signs: 07/06/22 14:24 07/06/22 14:30 07/06/22 14:36 Temperature 98.9 F Temperature Source Oral Pulse Rate 100 Pulse Rate [Lying] Pulse Rate [Sitting (for 1 minute prior to obtaining)] Pulse Rate [Standing (for 1 minute prior to obtaining)] Respiratory Rate 18 Respiratory Effort Normal Respiratory Pattern Normal Blood Pressure 125/67 H Blood Pressure [Lying] Blood Pressure [Sitting (for 1 minute prior to obtaining)] Blood Pressure [Standing (for 1 minute prior to obtaining)] Blood Pressure Mean 86 Blood Pressure Mean [Lying] Blood Pressure Mean [Sitting (for 1 minute prior to obtaining)] Blood Pressure Mean [Standing (for 1 minute prior to obtaining)] Pulse Ox 97 96 Oxygen Delivery Method Room Air Room Air 07/06/22 15:49 07/06/22 15:49 07/06/22 16:14 Temperature Temperature Source Pulse Rate 88 86 Pulse Rate [Lying] 91 Pulse Rate [Sitting (for 1 minute prior to obtaining)] 98 Pulse Rate [Standing (for 1 minute prior to obtaining)] 98 Respiratory Rate 18 16 Respiratory Effort Respiratory Pattern Blood Pressure 142/68 H 136/74 H Blood Pressure [Lying] 125/57 H Blood Pressure [Sitting (for 1 minute prior to obtaining)] 112/74 Blood Pressure [Standing (for 1 minute prior to obtaining)] 98/72 Blood Pressure Mean 92 94 Blood Pressure Mean [Lying] 79 Blood Pressure Mean [Sitting (for 1 minute prior to obtaining)] 86 Blood Pressure Mean [Standing (for 1 minute prior to obtaining)] 80 Pulse Ox 96 96 Oxygen Delivery Method Room Air Room Air 07/06/22 17:00 07/06/22 17:43 07/06/22 18:00 Temperature Temperature Source Pulse Rate 87 92 Pulse Rate [Lying] 87 Pulse Rate [Sitting (for 1 minute prior to obtaining)] 93 Pulse Rate [Standing (for 1 minute prior to obtaining)] 110 H Respiratory Rate 14 14 Respiratory Effort Respiratory Pattern Blood Pressure 143/82 H 136/78 H Blood Pressure [Lying] 143/72 H Blood Pressure [Sitting (for 1 minute prior to obtaining)] 144/74 H Blood Pressure [Standing (for 1 minute prior to obtaining)] 106/46 L Blood Pressure Mean 102 97 Blood Pressure Mean [Lying] 95 Blood Pressure Mean [Sitting (for 1 minute prior to obtaining)] 97 Blood Pressure Mean [Standing (for 1 minute prior to obtaining)] 66 Pulse Ox 98 98 Oxygen Delivery Method Room Air Room Air 07/06/22 19:00 Temperature Temperature Source Pulse Rate 81 Pulse Rate [Lying] Pulse Rate [Sitting (for 1 minute prior to obtaining)] Pulse Rate [Standing (for 1 minute prior to obtaining)] Respiratory Rate 22 H Respiratory Effort Respiratory Pattern Blood Pressure 160/78 H Blood Pressure [Lying] Blood Pressure [Sitting (for 1 minute prior to obtaining)] Blood Pressure [Standing (for 1 minute prior to obtaining)] Blood Pressure Mean 105 Blood Pressure Mean [Lying] Blood Pressure Mean [Sitting (for 1 minute prior to obtaining)] Blood Pressure Mean [Standing (for 1 minute prior to obtaining)] Pulse Ox 96 Oxygen Delivery Method Room Air RASHID <GAMA Siegel - Last Filed: 07/06/22 18:56> RASHID Lab Data Labs: Laboratory Results - last 24 hr 07/06/22 07/06/22 07/06/22 14:33 14:33 16:23 WBC 9.4 RBC 4.32 Hgb 13.0 Hct 40.5 MCV 93.8 MCH 30.1 MCHC 32.1 RDW Std Deviation 48.7 H RDW Coeff of Gordon 14.1 Plt Count 225 MPV 8.9 Immature Gran % (Auto) 0.300 Neut % (Auto) 91.7 H Lymph % (Auto) 4.8 L [place] % (Auto) 2.9 Eos % (Auto) 0.1 Baso % (Auto) 0.2 Absolute Neuts (auto) 8.6 H Absolute Lymphs (auto) 0.45 L Nucleated RBC % 0 Differential Comment SEE COMMENT Diff Path Review May foll Platelet Estimate ADEQUATE RBC Morphology N CHROM Anisocytosis RARE Macrocytosis RARE Sodium 136 Potassium 3.5 Chloride 99 Carbon Dioxide 29.0 Anion Gap 8 BUN 19 H Creatinine 1.07 H Estim Creat Clear Calc 43.71 Est GFR (MDRD) Af Amer 64 Est GFR (MDRD) Non-Af 53 L BUN/Creatinine Ratio 17.8 Glucose 178 H Calcium 8.8 Troponin I High Sens 27 39 Radiography Diagnostic Testing: Clinical Impression(s) from Imaging Studies Chest X-Ray 07/06/22 15:15 IMPRESSION: No acute cardiopulmonary process identified. Electronically Signed: Sravani Aguilar MD at 15:43 EDT , EKG Normal sinus rhythm,: Attestation: I personally reviewed and interpreted this EKG as follows: Comments: Normal sinus rhythm, rate of 91 bpm, [place] 132 ms, QRS duration 98 ms, no acute ST elevation, no acute infarct noted Treatment and Re-Evaluation Narrative: Patient appears alert, oriented, patient's only complaint is slight dizziness. Patient presents to the emergency department for multiple syncopal episodes today, feeling of dizziness, nausea and vomiting last evening. Patient was brought here via EMS, the EMS thought that she was in SVT, due to her having a syncopal episode they did give her shock and put her in sinus rhythm. When looking at the rhythm, this did appear to be in rapid atrial fibrillation. Patient orthostatic positive on arrival, was given 2 L of normal saline. Patient's CBC was unremarkable, patient's chemistries show slight increase in her creatinine to 1.07, BUN of 19, patient's glucose 178, initial troponin was 27, repeat we were ordered. Patient's EKG does show normal sinus rhythm. On reassessment, patient does still feel slightly lightheaded, she was given oral fluid as well as another liter of normal saline. Patient received repeat orthostatic vital signs, this was done after the second liter of normal saline, patient was positive again with elevated heart rate to 110 with a drop of her blood pressure 144 over 74-106/46. Patient was ambulatory to the bathroom however was slightly dizzy with difficulty ambulating. Patient will receive 3rd L of IV fluids to ensure that she is no longer orthostatic and is safe to go home. <Dr. Sanjay Michaud MD - Last Filed: 07/06/22 19:50> [facility] Narrative Medical decision making narrative: I have personally performed a face to face assessment of the patient and have reviewed the JULES Note. I performed a substantive portion of the visit including all aspects of the following. My jasso findings include: History is is remarkable for nausea and vomiting for the past 24 hours. She had near syncopal sewed yesterday that are consistent with orthostatic symptoms. She is on anticoagulant for chronic atrial fibrillation. She denies black or maroon-colored stool. She denies blood in her diarrhea. She denies fever, chills night sweats. She denies headache. There is no head trauma per the . Patient has no recall that she passed out and is unaware that she was shocked. She apparently was shocked for paroxysmal supraventricular tachycardia per the paramedics. I had an opportunity to review the rhythm strip and patient was in A. fib. Concerned initially that she may have had Kaylee's phenomenon. Presently patient denies cardiac respiratory symptoms. She denies abdominal pain. She denies change in her vision. She was unaware that she had a subconjunctival hemorrhage. Subconjunctival hemorrhages noted on the left side. There is no evidence of head or facial trauma. Patient denies neck pain. She denies paresthesia, anesthesia or motor weakness presently or the time of the single episode. Exam is patient appears slightly pale. HEENT is remarkable for subconjunctival hemorrhage. Mucosa is dry. When questioned she does endorse dry mouth and thirst. There is no clinical findings of head trauma or basilar skull fracture. She has no cervical spine tenderness. Heart is regular regular. Rate is a approximately 100. There is no obvious murmur. There is no gallop. Lungs are clear to auscultation. Breath sounds are noted bilaterally. Abdomen is soft nontender. Is no pain the patient of the pelvis. Patient has a skin tear mid/distal third of the left forearm on the dorsal surface. There is no neurovascular compromise. Median, radial, ulnar and axillary nerve function are intact. GCS is 15. Neuro exam is nonfocal. Medical Decision Making after reviewing the rhythm strip suspect patient had orthostatic hypotension due to dehydration. This would explain her rapid heart rate. As previously mentioned patient did not have PSVT. She had A. fib with RVR and either apparent beats or premature ventricular beats. Other additions or changes: Recommend IV fluids, orthostatic vital signs, blood work to assess for renal dysfunction, anion gap and hypokalemia since she reports/endorses diarrhea. Suspect this is not of cardiac etiology. Patient was assessed after her third liter. She feels markedly better. She looks better. She would like to go home. Monitor reveals a sinus rhythm rate of 93. Lab Data Labs: Laboratory Results - last 24 hr 07/06/22 07/06/22 07/06/22 14:33 14:33 16:23 WBC 9.4 RBC 4.32 Hgb 13.0 Hct 40.5 MCV 93.8 MCH 30.1 MCHC 32.1 RDW Std Deviation 48.7 H RDW Coeff of Gordon 14.1 Plt Count 225 MPV 8.9 Immature Gran % (Auto) 0.300 Neut % (Auto) 91.7 H Lymph % (Auto) 4.8 L [place] % (Auto) 2.9 Eos % (Auto) 0.1 Baso % (Auto) 0.2 Absolute Neuts (auto) 8.6 H Absolute Lymphs (auto) 0.45 L Nucleated RBC % 0 Differential Comment SEE COMMENT Diff Path Review May foll Platelet Estimate ADEQUATE RBC Morphology N CHROM Anisocytosis RARE Macrocytosis RARE Sodium 136 Potassium 3.5 Chloride 99 Carbon Dioxide 29.0 Anion Gap 8 BUN 19 H Creatinine 1.07 H Estim Creat Clear Calc 43.71 Est GFR (MDRD) Af Amer 64 Est GFR (MDRD) Non-Af 53 L BUN/Creatinine Ratio 17.8 Glucose 178 H Calcium 8.8 Troponin I High Sens 27 39 Radiography Chest X-Ray - ED: 1 View (Single view chest x-ray was independently reviewed and interpreted by me as negative for acute pathology. Cardiac silhouette and size noted and normal. There is slight hyperaeration. There is no effusion or infiltrate noted. The film is slightly rotated. Osseous structures unremarkable. Perihi) Diagnostic Testing: Clinical Impression(s) from Imaging Studies Chest X-Ray 07/06/22 15:15 IMPRESSION: No acute cardiopulmonary process identified. Electronically Signed: Sravani Aguilar MD at 15:43 EDT Reading Location ID and State: [facility] / [place] Tel , Service support , Discharge Plan Triage Chief Complaint: Syncope ED Midlevel Provider: David Roger ED Provider: Sanjay Michaud Dx/Rx/DC Orders Clinical Impression: Orthostatic hypotension, Abdominal pain, vomiting, and diarrhea, Paroxysmal atrial fibrillation with rapid ventricular response, Acute hyperglycemia, Anticoagulant long-term use Instructions: ED Hypotension, Orthostatic Prescriptions: No Action atorvastatin 40 mg Tablet 40 mg PO DAILY diltiazem HCl 120 mg Capsule,Extended Release 12 Hr 120 mg PO Q12H flecainide 50 mg Tablet 50 mg PO Q12H Xarelto 20 mg Tablet 20 mg PO DAILY lutein 20 mg Tablet 20 mg PO DAILY Primary Care Provider: Deven Dunaway Referrals: Deven Dunaway MD [Primary Care Provider] - 3-5 Days if not improving Activity Restrictions/Additional Instructions: 1. Take Imodium if you continue to have diarrhea 2. Drink plenty of fluids Disposition Disposition: Home, Self Care
--- NOTE | 2022-07-06 15:15 | RAD_ITS ---
HISTORY: chest pain. TECHNIQUE: XR Chest 1 View. COMPARISON: None. FINDINGS: CARDIOMEDIASTINAL BORDERS: Cardiac silhouette within normal limits in size. Mediastinal contour unremarkable with calcification of the aortic knob. LUNGS: Radiographically clear. Pacer pad over the right chest. PLEURA: No pleural effusion or pneumothorax seen. OSSEOUS STRUCTURES: Degenerative change. RAD/Chest 1 View (Portable) IMPRESSION: No acute cardiopulmonary process identified. Electronically Signed: Sravani Aguilar MD at 15:43 EDT ,
[2022-07-06] MEDS: Ondansetron 4 MG/2 ML Vial IV (15:46)
[2022-07-06 16:09] LABS: Differential Indicated SCAN CRITERIA MET
[2022-07-06 16:18] LABS: Anisocytosis RARE; Macrocytosis RARE; Platelet Estimate ADEQUATE (ADEQ); Red Cell Morphology N CHROM NORMAL (NORM C&C)
[2022-07-06 16:36] LABS: Reflex Troponin-HS? (from REC) Y
[2022-07-06] MEDS: 0.9% Normal Saline 1,000 ML 999 ML IV ×2 (16:37→18:35)
[2022-07-06 17:15] LABS: Troponin-I HS 39 pg/mL (3.0-54.0)
[2022-07-10 06:21] LABS: Pathologist Review Reviewed
== END 2022-07-06 20:03 | disposition home or self-care (01) ==
PROVIDERS: Nurse Practitioner; Emergency Provider Emergency Medicine; PCP Family Medicine; Visit Provider Emergency Medicine
DX: I48.0 Paroxysmal atrial fibrillation (principal); I10 Essential (primary) hypertension; E78.00 Pure hypercholesterolemia, unspecified; Z79.899 Other long term (current) drug therapy; Z79.01 Long term (current) use of anticoagulants; I95.1 Orthostatic hypotension; R11.2 Nausea with vomiting, unspecified; R19.7 Diarrhea, unspecified; R10.9 Unspecified abdominal pain; R73.9 Hyperglycemia, unspecified
CPT/HCPCS: 71045; 80048; 84484; 85025; 93005; 96361; 96374; 99285; J7030; A4216; J2405

== ENCOUNTER 2022-11-14 17:10 | Emergency (ER) | payer MEDICARE, SELFPAY ==
[2022-11-14] VITALS (7 sets, daily range): BP systolic 138–191; BP diastolic 68–104; PULSE 84–159; RESP 18–28; TEMP 36.8–37; O2SAT 95–98; BMI 26.2
--- NOTE | 2022-11-14 17:37 | EKG12_ITS ---
Test Reason : AFIB RVR Blood Pressure : / mmHG Vent. Rate : 145 BPM Atrial Rate : 000 BPM P-R Int : 000 ms QRS Dur : 102 ms QT Int : 320 ms P-R-T Axes : 000 060 -83 degrees QTc Int : 497 ms Atrial fibrillation with rapid ventricular response with premature ventricular or aberrantly conducte d complexes Marked ST abnormality, possible inferior subendocardial injury Abnormal ECG Confirmed by ARABELLA CAMEJO, SUDHEER ([id number]), web content editor NHUNG KARIMI ([id number]) on 11/15/2022 10:39:05 AM Referred By: VENKAT Confirmed By:SUDHEER BELL MD
--- NOTE | 2022-11-14 17:37 | EX.ED.DYSGE1 ---
HPI History of Present Illness Chief Complaint: Palpitations Detail of Chief Complaint: Near syncope. No palpitations. Informant: patient, spouse/S.O. and EMS Onset/Context/Timing Onset: Today Associated Symptoms Associated Symptoms: Cough/respiratory illness x2-3 days Narrative Narrative: Patient has had respiratory illness for the last several days and feeling poorly. She was seen at [facility] ER this morning for this had negative COVID and influenza swabs and was told after a chest x-ray that she had a touch of pneumonia and prescribed doxycycline. She started that, she took 1 dose after being given fluids and an antibiotic in the IV while in the emergency room. At home after she took the doxycycline, she was urinating a lot, presumably because of the IV fluid she had in the emergency department, and so she was going to and from the restroom a bit to urinate. After 1 episode, she got up and was walking to another room in a house and became lightheaded and collapsed, near syncopal but did not lose consciousness. She had no dyspnea, chest discomfort, or other symptoms. She denies feeling any palpitations. She has a history of A. fib for which she is on flecainide and diltiazem, but she missed this morning's doses because of being in the emergency department. She has otherwise been compliant with these medications. She is also anticoagulated on Xarelto, she has had no hemoptysis or bleeding elsewhere. She is not feeling the fact that she is in A. fib but knows because of her ED visit earlier that she was not in rapid A. fib at that time, but EMS told her when they picked her up today after her near syncopal episode that she was. Spouse says he called EMS because she was like weight on the floor and was not feeling well and he could not get her up. EMS told them they should come to [place] because of her rapid A. fib and they are better at that. Her front end manager is in [place]. [facility] Medical History Afib Chronic anticoagulation History of atrial fibrillation HTN (hypertension) Hypercholesteremia Home Medications atorvastatin 40 mg tablet 40 mg PO DAILY cholesterol 05/02/22 [History Last Taken Unknown] diltiazem HCl 120 mg capsule,extended release 12 hr 120 mg PO Q12H heart rate 05/02/22 [History Last Taken Unknown] flecainide 50 mg tablet 50 mg PO Q12H heart rate 05/02/22 [History Last Taken Unknown] rivaroxaban 20 mg tablet (Xarelto) 20 mg PO DAILY blood thinner 05/02/22 [History Last Taken Unknown] lutein 20 mg capsule 20 mg PO DAILY 11/14/22 [History Last Taken Unknown] multivitamin 1 tab PO DAILY 11/14/22 [History Last Taken Unknown] Allergy/AdvReac Type Severity Reaction Status Date / Time No Known Allergies Allergy Verified 11/14/22 17:11 Family History (Updated 05/02/22 @ 13:[address] Hieu Davis DO) Other CAD (coronary artery disease) Surgical History Hx of tonsillectomy Social History Smoking Status: Never smoker ROS ROS ED Constitutional Constitutional ED: Reports malaise; Denies chills or fever(s) Eyes Eyes: Denies change in vision or diplopia ENT ENT ED: Reports nasal congestion and rhinorrhea; Denies sore throat Cardiovascular Cardiovascular: Reports lightheadedness; Denies chest pain, palpitations or racing heartbeat Respiratory/Chest Respiratory/Chest: Reports cough and sputum; Denies dyspnea Gastrointestinal Gastrointestinal: Reports nausea and vomiting; Denies abdominal pain or diarrhea Genitourinary Genitourinary ED: Denies dysuria or hematuria Musculoskeletal Musculoskeletal: Denies back pain or neck pain Integumentary Denies abscess or rash Neurologic Neurologic: Denies headache(s), paresthesias or weakness Psychiatric Psychiatric: Denies anxiety or suicidal thoughts EXAM Physical Exam Const Vital Signs: 11/14/22 17:11 11/14/22 17:28 11/14/22 17:29 Temperature 98.3 F 98.6 F 98.6 F Temperature Source Temporal Temporal Temporal Pulse Rate 147 H 156 H 159 H Respiratory Rate 18 26 H 28 H Respiratory Effort Blood Pressure 191/94 H 191/94 H 191/94 H Blood Pressure Mean 126 126 126 Pulse Ox 95 95 95 Oxygen Delivery Method Room Air Room Air Room Air 11/14/22 17:47 11/14/22 19:06 11/14/22 20:06 Temperature Temperature Source Pulse Rate 115 H 128 H Respiratory Rate 21 H 18 Respiratory Effort Short of Breath Blood Pressure 138/68 H 158/104 H Blood Pressure Mean 91 122 Pulse Ox 98 95 Oxygen Delivery Method Room Air Room Air 11/14/22 20:15 Temperature Temperature Source Pulse Rate 84 Respiratory Rate Respiratory Effort Blood Pressure Blood Pressure Mean Pulse Ox Oxygen Delivery Method Positive well nourished and well developed General Appearance ED: well developed and NAD HEENT Reports moist mucous membranes normocephalic and atraumatic Eyes PERRL and EOMs intact bilaterally Neck full ROM and supple Resp normal respiratory effort and clear to auscultation bilaterally Cardio no murmurs Rate: tachycardic Rhythm: abnormal rhythm irregularly irregular GI non-tender and non-distended Auscultation: normoactive bowel sounds Palpation: soft Back/Spine no CVA tenderness General Back: other FROM Extremity normal to inspection General Extremety ED: Negative for edema, pulses abnormal or tenderness General Extremity: Negative for edema or pulses abnormal Neuro oriented x3, CN's II-XII intact bilaterally and no sensory deficits noted Sensorium / Orientation: awake and alert Motor Exam: strength 5/5 throughout Skin no rashes or lesions noted and no wounds MDM MDM MDM Narrative Medical decision making narrative: EKG shows rapid A. fib as interpreted by myself, no acute ischemic abnormalities, labs are unremarkable, I did not feel that we needed to repeat her respiratory illness work-up so I focused on treating her atrial fibrillation with RVR which is probably the reason for her near syncopal episode. She is anticoagulated, did not have any apparent injury, and the chances of her having an acute pulmonary embolus causing this are extremely low. We started by getting labs and an EKG, the labs are unremarkable with no electrolyte disorders that would cause this in need of correction, and gave her Cardizem 20 mg as well as the rest of the squad IV fluids. On reevaluation her heart rate is down to the 120s but still tachycardic and in atrial fibrillation, blood pressure stable. Discussed with cardiology for guidance regarding the skipped medications from this morning, it is now around [id number]. She is on a low-dose of flecainide, she does not have any obvious evidence of QT prolongation on the EKG, and he agrees with giving the patient a higher dose of flecainide in addition to diltiazem, and if she does not slow down enough and/or convert, cardioverting her would be reasonable too. I would like to discuss all this with the patient, and she had suddenly spontaneously converted to a normal sinus rhythm at a rate in the 90s still with occasional PVCs, in that 60-50-[id number] window. She feels better. She states she usually is not in atrial fibrillation, she usually can feel when she is in it although today she really did not necessarily. At this time instead of giving her the above discussed medications, I am giving her her nighttime doses of flecainide and diltiazem and discharging her home with return precautions. She is comfortable with that plan. Lab Data Attestation: I reviewed the patient's lab results. Labs: Laboratory Results - last 24 hr 11/14/22 11/14/22 17:50 17:50 WBC 12.4 H RBC 4.04 L Hgb 12.6 Hct 39.0 MCV 96.5 MCH 31.2 MCHC 32.3 RDW Std Deviation 50.4 H RDW Coeff of Gordon 14.2 Plt Count 216 MPV 9.0 Immature Gran % (Auto) 0.400 Neut % (Auto) 88.5 H Lymph % (Auto) 4.4 L Barton % (Auto) 6.5 Eos % (Auto) 0.0 Baso % (Auto) 0.2 Absolute Neuts (auto) 11.0 H Absolute Lymphs (auto) 0.54 L Nucleated RBC % 0 Differential Comment SCANNED Sodium 134 L Potassium 3.5 Chloride 101 Carbon Dioxide 26.0 Anion Gap 7 BUN 12 Creatinine 0.67 Estim Creat Clear Calc 44.36 Est GFR (MDRD) Af Amer 109 Est GFR (MDRD) Non-Af 90 BUN/Creatinine Ratio 17.8 Glucose 152 H Calcium 8.7 Rhythm Strip Rhythm Strip: A-fib Rate: 140 Ectopy: PVC(s) (frequent) EKG Initial EKG: Attestation: I personally reviewed and interpreted this EKG as follows: Interpretation: No Acute Injury Pattern and Atrial Fibrillation (rapid w/ diffuse NSSSTT wave abn) Prior EKG tracings: available for review (Similar morphology, but prior EKGs showed sinus rhythm with PVCs) Follow-up EKG: Attestation: I personally reviewed and interpreted this EKG as follows: Interpretation: Sinus Rhythm and No Acute Injury Pattern Comments: PVCs. QTC within normal limits. Similar to prior EKGs. Discharge Plan Triage Chief Complaint: Palpitations Other Complaint: Nausea/Vomiting ED Provider: Oswaldo King Dx/Rx/DC Orders Clinical Impression: Near syncope, Atrial fibrillation with RVR, Acute lower respiratory tract infection Instructions: AFib Prescriptions: No Action atorvastatin 40 mg Tablet 40 mg PO DAILY diltiazem HCl 120 mg Capsule,Extended Release 12 Hr 120 mg PO Q12H flecainide 50 mg Tablet 50 mg PO Q12H Xarelto 20 mg Tablet 20 mg PO DAILY multivitamin Tablet 1 tab PO DAILY lutein 20 mg Capsule 20 mg PO DAILY Rx Instructions: give with meal/snack Primary Care Provider: Deven Dunaway Referrals: Deven Dunaway MD [Primary Care Provider] - 3-5 Days if not improving (And/or your front end manager) Activity Restrictions/Additional Instructions: You do not have to take your nighttime doses of flecainide and diltiazem tonight, but take your other scheduled medications if you take them at night. You can resume your flecainide and diltiazem as usual in the morning. Disposition Disposition: Home, Self Care
[2022-11-14] MEDS: Ondansetron 4 MG/2 ML Vial IV (17:45)
[2022-11-14] MEDS: dilTIAZem 25 MG/5 ML Vial 20 MG IV BOLUS (17:45)
[2022-11-14 18:03] LABS: Absolute Lymphocyte Count 0.54 X10^3/uL (0.83-4.51); Basophil# 0.03 X10^3/uL; Basophil% 0.2 % (0-1); Hemoglobin 12.6 g/dL (12.0-15.0); Lymphocyte # 0.54 X10^3/ul (0.83-4.51); Lymphocyte % 4.4 % (19-41); Mean Corp Hgb Conc 32.3 g/dL (32-36); Mean Corpuscular Hgb 31.2 pg (27.0-32.0); Mean Corpuscular Volume 96.5 fL (81-99); Monocyte% 6.5 % (0-10); NRBC Flagged by Analyzer 0 % (0-5); Neutrophil # 10.98 X10^3/uL (2.7-7.7); Neutrophil % 88.5 % (47-70); POSITIVE DIFFERENTIAL YES; Platelet Count 216 K/mm3 (150-450); RBC Distribution Width CV 14.2 % (11.6-14.6); RBC Distribution Width SD 50.4 fl (35.1-43.9); Red Blood Count 4.04 M/mm3 (4.2-5.4); White Blood Count 12.4 K/mm3 (4.4-11.0)
[2022-11-14 18:10] LABS: Differential Indicated SCAN CRITERIA MET
[2022-11-14 18:23] LABS: Anion Gap 7 (5-15); BUN 12 mg/dL (7-18); BUN/Creat Ratio 17.8 RATIO (10-20); Calcium,Total 8.7 mg/dL (8.5-10.1); Chloride 101 mmol/L (98-107); Creatinine, Serum 0.67 mg/dL (0.55-1.02); EST Glomerular Filtration Rate 90 mL/min (>60); Est Glom Filt Rate - Afr Amer 109 mL/min (>60); Estimated Creatinine Clearance 44.36 ml/min; Glucose 152 mg/dL (74-106); Potassium 3.5 mmol/L (3.5-5.1); Sodium Level 134 mmol/L (136-145)
[2022-11-14 18:35] LABS: Differential Comment SCANNED
--- NOTE | 2022-11-14 20:12 | EKG12_ITS ---
Test Reason : REPEAT Blood Pressure : / mmHG Vent. Rate : 098 BPM Atrial Rate : 098 BPM P-R Int : 122 ms QRS Dur : 098 ms QT Int : 320 ms P-R-T Axes : 046 036 074 degrees QTc Int : 408 ms Sinus rhythm with Premature atrial complexes with Aberrant conduction Nonspecific ST abnormality Abnormal ECG Confirmed by ARABELLA CAMEJO, SUDHEER ([id number]), editor index NHUNG KARIMI ([id number]) on 11/15/2022 10:41:47 AM Referred By: Confirmed By:SUDHEER BELL MD
--- NOTE | 2022-11-14 20:16 | ED.RN ---
pt convertred to sr. ekg ordered
[2022-11-14] MEDS: dilTIAZem CD 120 MG Capsule PO (20:42)
[2022-11-14] MEDS: Flecainide 100 MG Tablet 50 MG PO (21:08)
== END 2022-11-14 21:16 | disposition home or self-care (01) ==
PROVIDERS: Emergency Provider Emergency Medicine; PCP Family Medicine; Visit Provider Emergency Medicine
DX: R55 Syncope and collapse (principal); I48.91 Unspecified atrial fibrillation; J22 Unspecified acute lower respiratory infection; E78.00 Pure hypercholesterolemia, unspecified; Z79.899 Other long term (current) drug therapy; Z79.01 Long term (current) use of anticoagulants
CPT/HCPCS: 96374; 96375; 99285; 80048; 85025; 93005; A4216; J2405

== ENCOUNTER 2022-11-16 09:50 | Observation (INO) | payer MEDICARE, SELFPAY ==
[2022-11-16] VITALS (15 sets, daily range): BP systolic 118–186; BP diastolic 57–101; PULSE 72–94; RESP 14–22; TEMP 36.4–37.2; O2SAT 86–97; BMI 25.7; BMI 25.2
--- NOTE | 2022-11-16 10:04 | RAD_ITS ---
STUDY: X-RAY CHEST REASON FOR EXAM: Female, 77 years old. Rales lower lobe bilaterally and expiratory wheezi TECHNIQUE: PA and lateral views of the chest. COMPARISON: 07/06/2022 FINDINGS: The lungs are clear and expanded. Tiny bilateral pleural effusions. Normal size heart. Normal mediastinum and praful. Normal visualized pulmonary arteries. Normal visualized aortic arch and descending thoracic aorta. Normal visualized thoracic spine. Normal visualized ribs, clavicles, and shoulders. There is no demonstrated abnormality of the visualized soft tissue structures of the upper abdomen. RAD/Chest PA and Lateral IMPRESSION: Tiny bilateral pleural effusions. Electronically Signed: Tae Jaeger MD at 11:38 EST ,
--- NOTE | 2022-11-16 10:07 | EDS_ITS ---
HPI History of Present Illness Chief Complaint: Nausea/Vomiting Detail of Chief Complaint: Nausea, decreased p.o. intake, thirst, lightheadedness and cough Informant: patient and EMS Onset/Context/Timing Onset: Days Context: Sudden Onset Timing: Continuous and Waxes and wanes Quality: Nausea, no appetite and respiratory symptoms Location: GI and respiratory Current Severity: Mild Maximum Severity: Moderate Worsened by: Nothing specific Relieved by: Nothing Associated Symptoms Associated Symptoms: Per HPI Narrative Narrative: Patient is a 77-year-old woman who was seen several days ago for or. Some. She had a influenza and COVID test at her doctor's office that was reported as negative. She was placed on antibiotic for pneumonia. She does not know the name of the antibiotic. She denies fever or chills. She denies headache, visual, ocular auditory symptoms. She denies neck pain or neck stiffness. She does endorse mild congestion. She denies sore throat. Her cough is productive of colored sputum, brown. She denies history of smoking or asthma. She denies diarrhea. She denies dysuria, frequency, urgency or hematuria. She does endorse decreased urine output. She denies myalgias or arthralgias. She denies joint swelling. She does endorse dry mouth and thirst as well. Prior similar symptoms: Yes Recent Illness/Hospitalization: Yes [facility] Medical History Afib Chronic anticoagulation History of atrial fibrillation HTN (hypertension) Hypercholesteremia Home Medications atorvastatin 40 mg tablet 40 mg PO DAILY cholesterol 05/02/22 [History Last Taken Unknown] diltiazem HCl 120 mg capsule,extended release 12 hr 120 mg PO Q12H heart rate 05/02/22 [History Last Taken Unknown] flecainide 50 mg tablet 50 mg PO Q12H heart rate 05/02/22 [History Last Taken Unknown] rivaroxaban 20 mg tablet (Xarelto) 20 mg PO DAILY blood thinner 05/02/22 [History Last Taken Unknown] lutein 20 mg capsule 20 mg PO DAILY 11/14/22 [History Last Taken Unknown] multivitamin 1 tab PO DAILY 11/14/22 [History Last Taken Unknown] ondansetron 4 mg disintegrating tablet 4 mg PO Q8H PRN PRN Nausea #10 tabs 11/16/22 [Rx Last Taken Unknown] Allergy/AdvReac Type Severity Reaction Status Date / Time No Known Allergies Allergy Verified 11/16/22 09:52 Family History (Updated 05/02/22 @ 13:[address] Hieu Davis DO) Other CAD (coronary artery disease) Surgical History Hx of tonsillectomy Social History (Updated 11/16/22 @ 10:[address] Sanjay Michaud MD) household members: spouse Smoking Status: Never smoker substance use type: does not use ROS ROS ED Constitutional Constitutional ED: Denies chills, fever(s), subjective, sweats or weight loss Eyes Eyes: Denies blurry vision, change in vision or diplopia ENT ENT ED: Denies ear pain, rhinorrhea or sore throat Cardiovascular Cardiovascular: Denies chest pain, orthopnea, palpitations, paroxysmal nocturnal dyspnea or racing heartbeat Respiratory/Chest Respiratory/Chest: Reports cough and sputum; Denies dyspnea, dyspnea on exertion, orthopnea or paroxysmal nocturnal dyspnea Gastrointestinal Gastrointestinal: Reports nausea; Denies abdominal pain, diarrhea or melena Genitourinary Genitourinary ED: Denies dysuria, hematuria or urinary frequency Musculoskeletal Musculoskeletal: Denies arthralgias, back pain or myalgias Integumentary Denies Abrasions or rash Neurologic Neurologic: Reports headache(s) Endocrine Endocrinology: Denies cold intolerance or heat intolerance Hematologic/Lymphatic Hematologic/Lymphatic: Reports systems reviewed and no addt'l complaints, except as documented EXAM Physical Exam Const Vital Signs: 11/16/22 09:53 11/16/22 09:56 11/16/22 10:39 Temperature 97.5 F L Temperature Source Temporal Pulse Rate 82 Pulse Rate [Lying] Pulse Rate [Sitting (for 1 minute prior to obtaining)] Pulse Rate [Standing (for 1 minute prior to obtaining)] Respiratory Rate 14 Respiratory Pattern Blood Pressure 186/101 H Blood Pressure [Lying] Blood Pressure [Sitting (for 1 minute prior to obtaining)] Blood Pressure [Standing (for 1 minute prior to obtaining)] Blood Pressure Mean 129 Blood Pressure Mean [Lying] Blood Pressure Mean [Sitting (for 1 minute prior to obtaining)] Blood Pressure Mean [Standing (for 1 minute prior to obtaining)] Pulse Ox 91 93 90 Oxygen Delivery Method Room Air Room Air Room Air 11/16/22 11:11 11/16/22 10:30 11/16/22 10:40 Temperature Temperature Source Pulse Rate 72 Pulse Rate [Lying] 77 Pulse Rate [Sitting (for 1 minute prior to obtaining)] 84 Pulse Rate [Standing (for 1 minute prior to obtaining)] 94 Respiratory Rate 18 Respiratory Pattern Normal Blood Pressure Blood Pressure [Lying] 165/82 H Blood Pressure [Sitting (for 1 minute prior to obtaining)] 135/71 H Blood Pressure [Standing (for 1 minute prior to obtaining)] 118/66 Blood Pressure Mean Blood Pressure Mean [Lying] 109 Blood Pressure Mean [Sitting (for 1 minute prior to obtaining)] 92 Blood Pressure Mean [Standing (for 1 minute prior to obtaining)] 83 Pulse Ox 86 Oxygen Delivery Method Positive well nourished and well developed; Negative for obese, cachectic or contractures General Appearance ED: well developed and NAD; Negative for cachectic, contractures, cyanotic, diaphoretic or pallor Nutritional Appearance: Negative for cachectic or obese HEENT Reports dry mucous membranes HEENT Narrative: Head is atraumatic normocephalic. Ears normal. Nares patent. Uvula midline. No deviation tongue with protrusion. No erythema or exudate of the posterior pharynx. Mouth ED: Yes dry mucous membranes Mouth: dry mucous membranes Eyes PERRL and EOMs intact bilaterally General Eye ED: Negative for pale conjunctiva or scleral icterus Neck no lymphadenopathy, supple and no JVD Neck Narrative: Trachea is midline. There is no cervical lymphadenopathy. Chest Wall inspection of chest normal Resp normal respiratory effort and No clear to auscultation bilaterally Auscultation: wheezes expiratory wheezes (Bilaterally greater lower lobes versus upper.) Cardio regular rate, regular rhythm, S1 normal heart sound, S2 normal heart sound and no murmurs GI normal to inspection, nondistended, normoactive bowel sounds, non-tender, non- distended and no masses; Negative for hepatosplenomegaly Back/Spine no CVA tenderness Extremity normal to inspection General Extremety ED: Negative for edema or tenderness General Extremity: Negative for edema Neuro oriented x3, CN's II-XII intact bilaterally and no sensory deficits noted Sensorium / Orientation: alert Motor Exam: strength 5/5 throughout Psych mental status grossly normal Skin no rashes or lesions noted, no wounds and No skin turgor normal General Skin Exam: Negative for jaundice or pallor MDM MDM MDM Narrative Medical decision making narrative: Patient is an elderly woman who presents with GI symptoms and respiratory symptoms. Suspect she has a respiratory infection. Will obtain chest x-ray to confirm if she does or does not have pneumonia. CBC to assess for anemia. Basic metabolic panel to assess renal function and anion gap since she states she has poor p.o. intake and clinically is dehydrated with orthostatic symptoms. 1 L normal saline was ordered. Patient's nausea was treated with Zofran. Because she has expiratory wheezing albuterol was ordered. Will reassess in 30 to 60 minutes. Patient was reassessed at 1143. She no longer has wheezing. She does have an inhaler at home. She was instructed to use the inhaler every 2-4 hours while awake. She was instructed to continue taking the antibiotic she was prescribed by her doctor. She was given a prescription for Zofran for her nausea. Had lengthy discussion with since he wanted her admitted. He was informed she does not meet criteria for admission to the hospital. Lab Data Attestation: I reviewed the patient's lab results. Lab results narrative: CBC, H&H and differential are unremarkable anemia. BUN and creatinine are normal with a GFR of 85. Glucose is slightly elevated 123. Labs: Laboratory Results - last 24 hr 11/16/22 11/16/22 10:20 10:20 WBC 6.3 RBC 4.07 L Hgb 12.6 Hct 37.3 MCV 91.6 D MCH 31.0 MCHC 33.8 RDW Std Deviation 46.6 H RDW Coeff of Gordon 13.7 Plt Count 191 MPV 8.8 Immature Gran % (Auto) 0.600 Neut % (Auto) 79.0 H Lymph % (Auto) 10.4 L Pepin % (Auto) 9.7 Eos % (Auto) 0.0 Baso % (Auto) 0.3 Absolute Neuts (auto) 5.0 Absolute Lymphs (auto) 0.65 L Nucleated RBC % 0 Sodium 132 L Potassium 3.3 L Chloride 97 L Carbon Dioxide 29.0 Anion Gap 6 BUN 9 Creatinine 0.71 Estim Creat Clear Calc 44.36 Est GFR (MDRD) Af Amer 103 Est GFR (MDRD) Non-Af 85 BUN/Creatinine Ratio 12.7 Glucose 123 H Calcium 9.1 Radiography Chest X-Ray - ED: 2 View and Read by ED Physician (There are no acute findings. The film performed today is underpenetrated in comparison to prior portable f ilms. There is no obscuring of the right or left hemidiaphragm. Cardiac silhouette and size unremarkable. Perihilar regions unremarkable. Osseous structures are unremarkable., 1112) Diagnostic Testing: Clinical Impression(s) from Imaging Studies Chest X-Ray 11/16/22 10:04 IMPRESSION: Tiny bilateral pleural effusions. Electronically Signed: Tae Jaeger MD at 11:38 EST , Discharge Plan Triage Chief Complaint: Nausea/Vomiting ED Provider: Sanjay Michaud Dx/Rx/DC Orders Clinical Impression: Upper respiratory infection with cough and congestion, Acute bronchospasm, Orthostatic dizziness Instructions: ED URI, Viral W/ Wheezing (Adult) Prescriptions: New ondansetron [ondansetron] 4 mg tablet,disintegrating 4 mg PO Q8H PRN PRN (Reason: Nausea) Qty: 10 0RF No Action atorvastatin 40 mg Tablet 40 mg PO DAILY diltiazem HCl 120 mg Capsule,Extended Release 12 Hr 120 mg PO Q12H flecainide 50 mg Tablet 50 mg PO Q12H Xarelto 20 mg Tablet 20 mg PO DAILY multivitamin Tablet 1 tab PO DAILY lutein 20 mg Capsule 20 mg PO DAILY Rx Instructions: give with meal/snack Primary Care Provider: Deven Dunaway Referrals: Deven Dunaway MD [Primary Care Provider] - 3-5 Days if not improving Activity Restrictions/Additional Instructions: 2 puffs of inhaler every 2-4 hours while awake for the next 2 to 3 days.
[2022-11-16] MEDS: Albuterol 2.5 MG/3 ML VIAL.NEB. INHALATION ×2 (10:28→12:36)
[2022-11-16 10:32] LABS: Absolute Lymphocyte Count 0.65 X10^3/uL (0.83-4.51); Basophil# 0.02 X10^3/uL; Basophil% 0.3 % (0-1); Hematocrit 37.3 % (37-47); Hemoglobin 12.6 g/dL (12.0-15.0); Lymphocyte # 0.65 X10^3/ul (0.83-4.51); Lymphocyte % 10.4 % (19-41); Mean Corp Hgb Conc 33.8 g/dL (32-36); Mean Corpuscular Volume 91.6 fL (81-99); Mean Platelet Vol. 8.8 fl (6.2-12.0); Monocyte# 0.61 X10^3/uL; Monocyte% 9.7 % (0-10); NRBC Flagged by Analyzer 0 % (0-5); Neutrophil # 4.96 X10^3/uL (2.7-7.7); Platelet Count 191 K/mm3 (150-450); RBC Distribution Width CV 13.7 % (11.6-14.6); RBC Distribution Width SD 46.6 fl (35.1-43.9); Red Blood Count 4.07 M/mm3 (4.2-5.4); White Blood Count 6.3 K/mm3 (4.4-11.0)
[2022-11-16] MEDS: 0.9% Normal Saline 1,000 ML 1000 ML IV (10:38)
[2022-11-16 10:45] LABS: Anion Gap 6 (5-15); BUN 9 mg/dL (7-18); BUN/Creat Ratio 12.7 RATIO (10-20); Calcium,Total 9.1 mg/dL (8.5-10.1); Chloride 97 mmol/L (98-107); Creatinine, Serum 0.71 mg/dL (0.55-1.02); EST Glomerular Filtration Rate 85 mL/min (>60); Est Glom Filt Rate - Afr Amer 103 mL/min (>60); Estimated Creatinine Clearance 44.36 ml/min; Glucose 123 mg/dL (74-106); Potassium 3.3 mmol/L (3.5-5.1); Sodium Level 132 mmol/L (136-145)
[2022-11-16] MEDS: Potassium Chloride Oral Tablet 20 MEQ 40 MEQ PO (13:54)
[2022-11-16] MEDS: KCL 20MEQ in 0.9% NS 20 MEQ/1,000 ML IV.SOLN. 100 MEQ IV ×2 (13:55→23:37)
--- NOTE | 2022-11-16 14:03 | PCM.HP.STD ---
HPI - General General Date of Admission: 11/16/22 Date of Service: 11/16/22 Chief Complaint: SOB, cough - 4 days HPI Narrative EDWAR HURD, is a 77 F who presents with above. Patient has past medical history of chronic atrial fibrillation, hypertension who started feeling short of breath and had a cough 4 days prior to admission. She went to see her primary care doctor and she was referred to the [facility] ED. she had negative COVID and influenza swab. She was prescribed doxycycline. She however has been nauseous was on the doxycycline. She also complained of feeling lightheaded and had a presyncopal episode. She admits to constant coughing, denies any specific chest pain or palpitation. Patient was seen in the ED on 11/14/2022 with similar symptoms as well as A. fib with RVR. Patient spontaneously cardioverted. Patient since being discharged has been feeling more unwell. She has been nauseous despite being on Zofran. She admits to wheezes. Denies any history of smoking. Denies fever or chills. Admits to some sick contact with her grandchild. Patient's vitals show blood pressure 186/101 initially, heart rate was 82, respiratory 14, temperature 97.5 F, oxygen sat was 86% on room air. She improved to 91% on 2 L of oxygen. Admitting blood work showed RBC count 6.3, hemoglobin 12.6, platelet count 191. Sodium is 132 potassium 3.3, chloride 97, bicarbonate 29, BUN 9, creatinine 0.71. Glucose 123. Chest x-ray showed tiny bilateral pleural effusions [facility] Medical History Afib Chronic anticoagulation History of atrial fibrillation HTN (hypertension) Hypercholesteremia Home Medications atorvastatin 40 mg tablet 40 mg PO DAILY cholesterol 05/02/22 [History Last Taken 11/13/22] diltiazem HCl 120 mg capsule,extended release 12 hr 120 mg PO Q12H heart rate 05/02/22 [History Last Taken 11/16/22] flecainide 50 mg tablet 50 mg PO Q12H heart rate 05/02/22 [History Last Taken 11/16/22] rivaroxaban 20 mg tablet (Xarelto) 20 mg PO DAILY blood thinner 05/02/22 [History Last Taken 11/15/22] lutein 20 mg capsule 20 mg PO DAILY eyes 11/14/22 [History Last Taken 11/13/22] multivitamin 1 tab PO DAILY supplment 11/14/22 [History Last Taken 11/13/22] cefdinir 300 mg capsule 300 mg PO BID pneumonia 11/16/22 [History Last Taken 11/16/22] ondansetron 4 mg disintegrating tablet 4 mg PO Q8H PRN PRN Nausea #10 tabs 11/16/22 [Rx Last Taken Unknown] Allergy/AdvReac Type Severity Reaction Status Date / Time No Known Allergies Allergy Verified 11/16/22 09:52 Family History Mother Heart disease Other CAD (coronary artery disease) Surgical History Hx of tonsillectomy Social History household members: spouse Smoking Status: Never smoker substance use type: does not use ROS ROS Narrative Constitutional: Reports: Malaise, Weakness, Fatigue. Denies: Anorexia, Chills, Fever, Night Sweats, Weight Change Eyes: Denies: Blurred vision, Cataracts, Conjunctivae Inflammation, Pain, Redness, Vision Change HEENT: Denies: Difficulty Hearing, Difficulty Swallowing, Head Aches, Hearing Changes, Sinus Congestion, Sinus Drainage Cardiovascular: Denies: Chest Pain, Orthopnea, Palpitations Respiratory: See HPI Gastrointestinal: Denies: Abdominal Pain, Nausea, Vomiting Genitourinary: Denies: Dysuria Musculoskeletal: Denies: Joint Pain, Joint stiffness, Joint swelling, Joint Tenderness Skin: Denies: Rash, Wounds Neurological: Denies: Numbness, Tingling, Focal weakness Vital Signs Vital Signs Vital Signs: 11/16/22 09:53 11/16/22 09:56 11/16/22 10:39 Temperature 97.5 F L Temperature Source Temporal Pulse Rate 82 Pulse Rate [Lying] Pulse Rate [Sitting (for 1 minute prior to obtaining)] Pulse Rate [Standing (for 1 minute prior to obtaining)] Respiratory Rate 14 Respiratory Effort Respiratory Depth Respiratory Pattern Blood Pressure 186/101 H Blood Pressure [Lying] Blood Pressure [Sitting (for 1 minute prior to obtaining)] Blood Pressure [Standing (for 1 minute prior to obtaining)] Blood Pressure Mean 129 Blood Pressure Mean [Lying] Blood Pressure Mean [Sitting (for 1 minute prior to obtaining)] Blood Pressure Mean [Standing (for 1 minute prior to obtaining)] Blood Pressure Source Blood Pressure Position Blood Pressure Location Pulse Ox 91 93 90 Oxygen Delivery Method Room Air Room Air Room Air Oxygen Flow Rate (L/min) Fraction of Inspired Oxygen (FIO2) 11/16/22 11:11 11/16/22 10:30 11/16/22 10:40 Temperature Temperature Source Pulse Rate 72 Pulse Rate [Lying] 77 Pulse Rate [Sitting (for 1 minute prior to obtaining)] 84 Pulse Rate [Standing (for 1 minute prior to obtaining)] 94 Respiratory Rate 18 Respiratory Effort Respiratory Depth Respiratory Pattern Normal Blood Pressure Blood Pressure [Lying] 165/82 H Blood Pressure [Sitting (for 1 minute prior to obtaining)] 135/71 H Blood Pressure [Standing (for 1 minute prior to obtaining)] 118/66 Blood Pressure Mean Blood Pressure Mean [Lying] 109 Blood Pressure Mean [Sitting (for 1 minute prior to obtaining)] 92 Blood Pressure Mean [Standing (for 1 minute prior to obtaining)] 83 Blood Pressure Source Blood Pressure Position Blood Pressure Location Pulse Ox 86 Oxygen Delivery Method Oxygen Flow Rate (L/min) Fraction of Inspired Oxygen (FIO2) 11/16/22 12:21 11/16/22 12:22 11/16/22 12:38 Temperature 98 F Temperature Source Temporal Pulse Rate 82 84 Pulse Rate [Lying] Pulse Rate [Sitting (for 1 minute prior to obtaining)] Pulse Rate [Standing (for 1 minute prior to obtaining)] Respiratory Rate 22 H 18 Respiratory Effort Respiratory Depth Respiratory Pattern Blood Pressure 174/90 H Blood Pressure [Lying] Blood Pressure [Sitting (for 1 minute prior to obtaining)] Blood Pressure [Standing (for 1 minute prior to obtaining)] Blood Pressure Mean 118 Blood Pressure Mean [Lying] Blood Pressure Mean [Sitting (for 1 minute prior to obtaining)] Blood Pressure Mean [Standing (for 1 minute prior to obtaining)] Blood Pressure Source Blood Pressure Position Blood Pressure Location Pulse Ox 94 96 Oxygen Delivery Method Nasal Cannula Nasal Cannula Oxygen Flow Rate (L/min) 2 2 Fraction of Inspired Oxygen (FIO2) 11/16/22 13:11 11/16/22 13:37 11/16/22 13:44 Temperature 97.8 F 97.8 F Temperature Source Oral Oral Pulse Rate 86 80 86 Pulse Rate [Lying] Pulse Rate [Sitting (for 1 minute prior to obtaining)] Pulse Rate [Standing (for 1 minute prior to obtaining)] Respiratory Rate 16 20 H Respiratory Effort Short of Breath Respiratory Depth Normal Respiratory Pattern Blood Pressure 153/57 H 153/57 H Blood Pressure [Lying] Blood Pressure [Sitting (for 1 minute prior to obtaining)] Blood Pressure [Standing (for 1 minute prior to obtaining)] Blood Pressure Mean 89 89 Blood Pressure Mean [Lying] Blood Pressure Mean [Sitting (for 1 minute prior to obtaining)] Blood Pressure Mean [Standing (for 1 minute prior to obtaining)] Blood Pressure Source Monitor Blood Pressure Position Semi-Fowlers Blood Pressure Location Left Arm Pulse Ox 94 94 Oxygen Delivery Method Nasal Cannula Nasal Cannula Nasal Cannula Oxygen Flow Rate (L/min) 2 2 Fraction of Inspired Oxygen (FIO2) 2 Weight Weight: 70.8 kg Body Mass Index (BMI) 25.2 Physical Exam Narrative Physical exam: General: Alert, Oriented x3, Cooperative, appears frail, on 2 L of oxygen HEENT: Atraumatic Oral: Moist Mucosa Neck: Supple Lungs: Diminished to auscultation Cardiovascular: HS I+II, regular, no murmurs Abdomen: Bowel Sounds Present, Soft, Non Tender Extremities: No edema Skin: No rashes, No breakdown Neurological: Grossly intact Psych/Mental Status: Appropriate Results Lab / Micro Data Result Diagrams: 11/16/22 10:20 11/16/22 10:20 Labs: Laboratory Results - last 24 hr 11/16/22 10:20: WBC 6.3, RBC 4.07 L, Hgb 12.6, Hct 37.3, MCV 91.6 D, MCH 31.0, MCHC 33.8, RDW Std Deviation 46.6 H, RDW Coeff of Gordon 13.7, Plt Count 191, MPV 8.8, Immature Gran % (Auto) 0.600, Neut % (Auto) 79.0 H, Lymph % (Auto) 10.4 L, [place] % (Auto) 9.7, Eos % (Auto) 0.0, Baso % (Auto) 0.3, Absolute Neuts (auto) 5.0, Absolute Lymphs (auto) 0.65 L, Nucleated RBC % 0 11/16/22 10:20: Sodium 132 L, Potassium 3.3 L, Chloride 97 L, Carbon Dioxide 29.0, Anion Gap 6, BUN 9, Creatinine 0.71, Estim Creat Clear Calc 44.36, Est GFR (MDRD) Af Amer 103, Est GFR (MDRD) Non-Af 85, BUN/Creatinine Ratio 12.7, Glucose 123 H, Calcium 9.1 Radiology Impression Chest X-Ray 11/16/22 10:04 IMPRESSION: Tiny bilateral pleural effusions. Electronically Signed: Tae Jaeger MD at 11:38 EST , Assessment & Plan Assessment/Plan (1) Acute respiratory infection: (2) Hypoxia: PLAN: Plan 1. Acute hypoxia secondary to presumed pneumonia Patient was saturating 86% on room air, improved on 2 L of oxygen Continue with breathing treatments, Encourage use of incentive spirometer. Wean off oxygen for SPO2 more than 94% 2. Probable acute pneumonia in a patient Chest x-ray showed no acute abnormality Started on IV ceftriaxone and azithromycin, will continue same Repeat chest x-ray in a.m. after patient is more hydrated Check urine Legionella and streptococcal antigen Check respiratory panel 3. Presyncope likely secondary to dehydration, renal function is unremarkable Continue on IV fluids 4. Hypokalemia, replace, recheck in a.m. 5. Chronic atrial fibrillation, rate controlled, continue on flecainide, Xarelto, Cardizem 6. Hypertension/hyperlipidemia, continue statin, Cardizem 7. DVT prophylaxis?on Xarelto Charges/Coding Visit Charges Inpatient E&M: 40203 Init Hosp L3
[2022-11-16] MEDS: Ensure Plus High Protein 120 ML LIQUID PO (16:31)
[2022-11-16] MEDS: Rivaroxaban 20 MG Tablet PO (16:32)
[2022-11-16] MEDS: 0.9% Saline Lock 10 ML Syringe IV (16:40)
[2022-11-16] MEDS: Ipratropium/Albuterol Sulfate 3 ML AMPUL.NEB INHALATION (19:00)
[2022-11-16] MEDS: dilTIAZem CD 120 MG Capsule PO (21:25)
[2022-11-16] MEDS: Atorvastatin Calcium 40 MG Tablet PO (21:25)
[2022-11-16] MEDS: Flecainide 100 MG Tablet 50 MG PO (21:25)
[2022-11-17 03:20] VITALS: BP 168/78; PULSE 73; RESP 18; TEMP 37.2; O2SAT 92
[2022-11-17 05:58] LABS: Absolute Lymphocyte Count 0.64 X10^3/uL (0.83-4.51); Basophil# 0.02 X10^3/uL; Basophil% 0.4 % (0-1); Eosinophil# 0.01 X10^3/uL; Eosinophils% 0.2 % (0-5); Hematocrit 33.7 % (37-47); Lymphocyte # 0.64 X10^3/ul (0.83-4.51); Lymphocyte % 12.6 % (19-41); Mean Corp Hgb Conc 32.6 g/dL (32-36); Mean Corpuscular Hgb 31.3 pg (27.0-32.0); Mean Corpuscular Volume 95.7 fL (81-99); Mean Platelet Vol. 9.4 fl (6.2-12.0); Monocyte# 0.46 X10^3/uL; NRBC Flagged by Analyzer 0 % (0-5); Neutrophil # 3.95 X10^3/uL (2.7-7.7); Neutrophil % 77.6 % (47-70); Platelet Count 185 K/mm3 (150-450); RBC Distribution Width CV 14.5 % (11.6-14.6); RBC Distribution Width SD 50.2 fl (35.1-43.9); Red Blood Count 3.52 M/mm3 (4.2-5.4); White Blood Count 5.1 K/mm3 (4.4-11.0)
[2022-11-17 06:24] LABS: ALB/GLOB Ratio 0.7 RATIO (0.9-2.4); AST(SGOT) 29 U/L (15-37); Alanine Aminotransfer ALT/SGPT 30 U/L (13-56); Albumin, Serum 2.2 g/dL (3.2-5.0); Alkaline Phosphatase 67 U/L (45-117); Anion Gap 6 (5-15); BUN 10 mg/dL (7-18); BUN/Creat Ratio 14.9 RATIO (10-20); Calcium,Total 8.4 mg/dL (8.5-10.1); Chloride 109 mmol/L (98-107); Creatinine, Serum 0.67 mg/dL (0.55-1.02); EST Glomerular Filtration Rate 90 mL/min (>60); Est Glom Filt Rate - Afr Amer 109 mL/min (>60); Globulin 3.2 g/dL (2.2-4.2); Glucose 99 mg/dL (74-106); Potassium 4.1 mmol/L (3.5-5.1); Protein, Total 5.4 g/dL (6.4-8.2); Sodium Level 140 mmol/L (136-145)
[2022-11-17 06:45] VITALS: PULSE 77; RESP 16; O2SAT 91
[2022-11-17] MEDS: Ipratropium/Albuterol Sulfate 3 ML AMPUL.NEB INHALATION (06:45)
[2022-11-17 08:07] VITALS: BP 179/97; PULSE 82; RESP 18; TEMP 36.6; O2SAT 95
[2022-11-17] MEDS: dilTIAZem CD 120 MG Capsule PO (08:12)
[2022-11-17] MEDS: Flecainide 100 MG Tablet 50 MG PO (08:13)
[2022-11-17] MEDS: Ensure Plus High Protein 120 ML LIQUID PO (08:14)
--- NOTE | 2022-11-17 08:37 | PN.HOSP_ITS ---
Subjective Subjective Patient is a 77-year-old lady admitted with shortness of breath and assessment of suspected pneumonia. Admitted to regular nursing floor for further management. Patient had acute viral respiratory panel sent which came back positive for influenza A Objective Data Objective Data Vital Signs: Vital Signs Temp Pulse Resp BP Pulse Ox O2 Del Method O2 Flow Rate 97.9 F 82 18 179/97 H 95 Room Air 2 11/17/22 08:07 11/17/22 08:07 11/17/22 08:07 11/17/22 08:07 11/17/22 08:07 11/17/22 08:07 11/16/22 21:21 FiO2 2 11/16/22 13:37 Oxygen Flow Rate (L/min) 2 Oxygen Delivery Method Room Air Weight: 70.3 kg Body Mass Index (BMI) 25.2 Intake & Output: Intake and Output for Last 24 Hours 11/15/22 11/16/22 11/17/22 23:59 23:59 23:59 Intake Total Balance Lab / Micro Data Result Diagrams: 11/17/22 04:23 11/17/22 04:23 Labs: Laboratory Results - last 24 hr 11/16/22 10:20: WBC 6.3, RBC 4.07 L, Hgb 12.6, Hct 37.3, MCV 91.6 D, MCH 31.0, MCHC 33.8, RDW Std Deviation 46.6 H, RDW Coeff of Gordon 13.7, Plt Count 191, MPV 8.8, Immature Gran % (Auto) 0.600, Neut % (Auto) 79.0 H, Lymph % (Auto) 10.4 L, [place] % (Auto) 9.7, Eos % (Auto) 0.0, Baso % (Auto) 0.3, Absolute Neuts (auto) 5.0, Absolute Lymphs (auto) 0.65 L, Nucleated RBC % 0 11/16/22 10:20: Sodium 132 L, Potassium 3.3 L, Chloride 97 L, Carbon Dioxide 29.0, Anion Gap 6, BUN 9, Creatinine 0.71, Estim Creat Clear Calc 44.36, Est GFR (MDRD) Af Amer 103, Est GFR (MDRD) Non-Af 85, BUN/Creatinine Ratio 12.7, Glucose 123 H, Calcium 9.1 12/24/22 04:23: WBC 5.1, RBC 3.52 L, Hgb 11.0 L, Hct 33.7 L, MCV 95.7, MCH 31.3, MCHC 32.6, RDW Std Deviation 50.2 H, RDW Coeff of Gordon 14.5, Plt Count 185, MPV 9.4, Immature Gran % (Auto) 0.200, Neut % (Auto) 77.6 H, Lymph % (Auto) 12.6 L, [place] % (Auto) 9.0, Eos % (Auto) 0.2, Baso % (Auto) 0.4, Absolute Neuts (auto) 4.0, Absolute Lymphs (auto) 0.64 L, Nucleated RBC % 0 11/17/22 04:23: Sodium 140, Potassium 4.1, Chloride 109 H, Carbon Dioxide 25.0, Anion Gap 6, BUN 10, Creatinine 0.67, Estim Creat Clear Calc 42.70, Est GFR (MDRD) Af Amer 109, Est GFR (MDRD) Non-Af 90, BUN/Creatinine Ratio 14.9, Glucose 99, Calcium 8.4 L, Total Bilirubin 0.20, AST 29, ALT 30, Alkaline Phosphatase 67, Total Protein 5.4 L, Albumin 2.2 L, Globulin 3.2, Albumin/Globulin Ratio 0.7 L Micro: Microbiology 11/16/22 15:00 Mucosa - Nasopharyngeal Respiratory Panel (PCR) - Final Influenza A (Subtype H3) 11/16/22 21:35 Urine, Clean Catch Legionella Antigen - Final 11/16/22 21:35 Urine, Clean Catch Streptococcus pneumoniae Antigen (M - Final Radiography Diagnostic Testing: Radiology Impression Chest X-Ray 11/16/22 10:04 IMPRESSION: Tiny bilateral pleural effusions. Electronically Signed: Tae Jaeger MD at 11:38 EST , Physical Exam Narrative GENERAL: cooperative HEENT: Atraumatic; normocephalic EYES; Anicteric, Normal Conjunctiva NECK; supple, normal thyroid, RESPIRATORY: Diminished to auscultation CARDIOVASCULAR: Regular S1 S2, GI: soft, normoactive bowel sounds, : No Renal angle tenderness; EXTREMITIES: No edema, no clubbing, MUSCULOSKELETAL: no muscle wasting NEURO: Awake; no lateralizing signs. SKIN: No Rash PSYCH; Flat affect Assessment & Plan Assessment/Plan (1) Influenza A: PLAN: Plan Patient is a 77-year-old lady admitted with shortness of breath and assessment of suspected pneumonia. Admitted to regular nursing floor for further management. Patient had acute viral respiratory panel sent which came back positive for influenza A 1. Acute influenza A pneumonia ? Admitted to regular nursing floor managed symptomatically in addition to Tamiflu. Patient was placed on oxygen on admission which has since been weaned off 2. Hypokalemia ? Corrected per protocol repeat labs ordered for a.m. 3. Chronic A. fib ? Rate controlled on flecainide and Cardizem as well as systemic anticoagulation with Xarelto 4. Hypertension - Blood pressure controlled, home medications continued with dose adjustment as needed 5. Dyslipidemia 6. DVT prophylaxis ? On Xarelto Charges/Coding Visit Charges Inpatient E&M: 02000 Subs Hosp L2
[2022-11-17 09:19] VITALS: BP 155/98; PULSE 91
--- NOTE | 2022-11-17 09:19 | DS.PCM_ITS ---
Providers Date of Admission: 11/16/22 Date of Discharge: 11/17/22 Primary Care Physician: Dr. Deven Dunaway MD Reason For Visit: HYPOXIA Diagnosis Discharge Diagnosis (1) Influenza A: Status: Acute Code(s): J10.1 - Influenza due to other identified influenza virus with other respiratory manifestations Plan Patient is a 77-year-old lady admitted with shortness of breath and assessment of suspected pneumonia. Admitted to regular nursing floor for further management. Patient had acute viral respiratory panel sent which came back positive for influenza A 1. Acute influenza A pneumonia ? Admitted to regular nursing floor managed symptomatically in addition to Tamiflu. Patient was placed on oxygen on admission which has since been weaned off -Patient requested to be discharged and stating that she was only kept for oxygen. With patient having experienced rather rapid improvement in her condition than expected at the time of admission decision was made to discharge patient home on Tamiflu. 2. Hypokalemia ? Corrected per protocol repeat labs ordered for a.m. 3. Chronic A. fib ? Rate controlled on flecainide and Cardizem as well as systemic anticoagulation with Xarelto 4. Hypertension - Blood pressure controlled, home medications continued with dose adjustment as needed 5. Dyslipidemia 6. DVT prophylaxis ? On Xarelto Medications at Discharge Home Medications atorvastatin 40 mg tablet 40 mg PO DAILY cholesterol 05/02/22 diltiazem HCl 120 mg capsule,extended release 12 hr 120 mg PO Q12H heart rate 05/02/22 flecainide 50 mg tablet 50 mg PO Q12H heart rate 05/02/22 rivaroxaban 20 mg tablet (Xarelto) 20 mg PO DAILY blood thinner 05/02/22 lutein 20 mg capsule 20 mg PO DAILY eyes 11/14/22 multivitamin 1 tab PO DAILY supplment 11/14/22 cefdinir 300 mg capsule 300 mg PO BID pneumonia 11/16/22 ondansetron 4 mg disintegrating tablet 4 mg PO Q8H PRN PRN Nausea #10 tabs 11/16/22 oseltamivir 30 mg capsule 30 mg PO BID 5 days #10 caps 11/17/22 Hospital Course Summary of Care Provided Minutes Spent on Discharge: 35 Physical Exam Narrative GENERAL: cooperative HEENT: Atraumatic; normocephalic EYES; Anicteric, Normal Conjunctiva NECK; supple, normal thyroid, RESPIRATORY: Diminished to auscultation CARDIOVASCULAR: Regular S1 S2, GI: soft, normoactive bowel sounds, : No Renal angle tenderness; EXTREMITIES: No edema, no clubbing, MUSCULOSKELETAL: no muscle wasting NEURO: Awake; no lateralizing signs. SKIN: No Rash PSYCH; Flat affect Weight / BMI Weight Weight: 70.3 kg Body Mass Index (BMI) 25.2 ABG / Lab / Microbiology Data Result Diagrams: 11/17/22 04:23 11/17/22 04:23 Laboratory: Laboratory Results - last 24 hr 11/16/22 10:20: WBC 6.3, RBC 4.07 L, Hgb 12.6, Hct 37.3, MCV 91.6 D, MCH 31.0, MCHC 33.8, RDW Std Deviation 46.6 H, RDW Coeff of Gordon 13.7, Plt Count 191, MPV 8.8, Immature Gran % (Auto) 0.600, Neut % (Auto) 79.0 H, Lymph % (Auto) 10.4 L, [place] % (Auto) 9.7, Eos % (Auto) 0.0, Baso % (Auto) 0.3, Absolute Neuts (auto) 5.0, Absolute Lymphs (auto) 0.65 L, Nucleated RBC % 0 11/16/22 10:20: Sodium 132 L, Potassium 3.3 L, Chloride 97 L, Carbon Dioxide 29.0, Anion Gap 6, BUN 9, Creatinine 0.71, Estim Creat Clear Calc 44.36, Est GFR (MDRD) Af Amer 103, Est GFR (MDRD) Non-Af 85, BUN/Creatinine Ratio 12.7, Glucose 123 H, Calcium 9.1 11/17/22 04:23: WBC 5.1, RBC 3.52 L, Hgb 11.0 L, Hct 33.7 L, MCV 95.7, MCH 31.3, MCHC 32.6, RDW Std Deviation 50.2 H, RDW Coeff of Gordon 14.5, Plt Count 185, MPV 9.4, Immature Gran % (Auto) 0.200, Neut % (Auto) 77.6 H, Lymph % (Auto) 12.6 L, [place] % (Auto) 9.0, Eos % (Auto) 0.2, Baso % (Auto) 0.4, Absolute Neuts (auto) 4.0, Absolute Lymphs (auto) 0.64 L, Nucleated RBC % 0 11/17/22 04:23: Sodium 140, Potassium 4.1, Chloride 109 H, Carbon Dioxide 25.0, Anion Gap 6, BUN 10, Creatinine 0.67, Estim Creat Clear Calc 42.70, Est GFR (MDRD) Af Amer 109, Est GFR (MDRD) Non-Af 90, BUN/Creatinine Ratio 14.9, Glucose 99, Calcium 8.4 L, Total Bilirubin 0.20, AST 29, ALT 30, Alkaline Phosphatase 67, Total Protein 5.4 L, Albumin 2.2 L, Globulin 3.2, Albumin/Globulin Ratio 0.7 L Microbiology: Microbiology 11/16/22 15:00 Mucosa - Nasopharyngeal Respiratory Panel (PCR) - Final Influenza A (Subtype H3) 11/16/22 21:35 Urine, Clean Catch Legionella Antigen - Final 11/16/22 21:35 Urine, Clean Catch Streptococcus pneumoniae Antigen (M - Final Radiography Diagnostic Testing: Radiology Impression Chest X-Ray 11/16/22 10:04 IMPRESSION: Tiny bilateral pleural effusions. Electronically Signed: Tae Jaeger MD at 11:38 EST Reading Location ID and State: [address] [place] [address] Tel , Service support , D/C Instructions Discharge Diet: No restrictions Discharge Activity: Return to Normal Activity Call your doctor if you observe: Fever of 101 or Higher, Shortness of breath, Fainting spells and Chest pain Meaningful Use Info Meaningful Use Diagnoses (Choose all that apply): None applicable Discharge Plan Admission Admit Date/Time: 11/16/22 12:18 Attending Provider: Hasmukh Bosch Primary Care Provider: Deven Dunaway Consulting Providers: Raine Michaud Instructions Patient Instructions: ED URI, Viral W/ Wheezing (Adult) Additional Instructions / Restrictions: 2 puffs of inhaler every 2-4 hours while awake for the next 2 to 3 days. Discharge Orders/Prescriptions Prescriptions: New ondansetron [ondansetron] 4 mg tablet,disintegrating 4 mg PO Q8H PRN PRN (Reason: Nausea) Qty: 10 0RF oseltamivir 30 mg Capsule 30 mg PO BID 5 Days Qty: 10 0RF Continued atorvastatin 40 mg Tablet 40 mg PO DAILY diltiazem HCl 120 mg Capsule,Extended Release 12 Hr 120 mg PO Q12H flecainide 50 mg Tablet 50 mg PO Q12H Xarelto 20 mg Tablet 20 mg PO DAILY multivitamin Tablet 1 tab PO DAILY lutein 20 mg Capsule 20 mg PO DAILY Rx Instructions: give with meal/snack cefdinir 300 mg Capsule 300 mg PO BID Referrals / Follow Up: Deven Dunaway MD [Primary Care Provider] - 3-5 Days if not improving Disposition Disposition (needs filled in before D/C Order can be placed): Home, Self Care Charges/Coding Visit Charges Inpatient E&M: 26106 Disch Hosp
[2022-11-17] MEDS: Oseltamivir Phosphate 30 MG Capsule PO (09:38)
[2022-11-17] MEDS: 0.9% Saline Lock 10 ML Syringe IV (09:38)
--- NOTE | 2022-11-17 12:00 | CASEMGMT ---
RN CM Face to Face with patient for initial transition planning/care coordination assessment. RN CM introduced self and role at [facility]. Patient lying in bed, alert and oriented, at bedside. Patient willing to participate in assessment and is able to answer all questions appropriately. Care providers, pharmacy, and demographics verified. Patient wishes to discharge home, denies need for home health at this time. Patient states she has no further needs or concerns at this time. CM to follow for discharge planning needs that may arise. PCP: Deven Dunaway Specialists: Lesly Director Of Dance Preferred Pharmacy: [facility] Insurance: [employer] [facility] Prescription Benefit: yes Living Will/HPOA: Joy Elizabeth, daughter HPOA LNOK: , daughter Living Arrangements: Patient lives with in a 2 story home with bed and bath on first floor, 3 steps and railing to enter the home. Patient states she is independent at home. Transportation: self, DME/HHC: Patient has raised toilet, cane, and walker at home. Patient has had promotion therapy in the past Disposition Plan: Patient to discharge home with family support and follow-up plans in place. Lyndsay MANCUSO, RN, CM
[2022-11-17 13:36] VITALS: BP 148/78; PULSE 86; RESP 16; TEMP 36.5; O2SAT 94
== END 2022-11-17 14:00 | disposition home or self-care (01) ==
LOC: ED 12:09 → MS3 17:50
PROVIDERS: Admitting Provider Internal Medicine; Emergency Provider Emergency Medicine; PCP Family Medicine; Visit Provider Internal Medicine
DX: J10.08 Influenza due to other identified influenza virus with other specified pneumonia (principal); I48.20 Chronic atrial fibrillation, unspecified; Z20.822 Contact with and (suspected) exposure to COVID-19; I10 Essential (primary) hypertension; E78.00 Pure hypercholesterolemia, unspecified; R11.2 Nausea with vomiting, unspecified; R55 Syncope and collapse; R42 Dizziness and giddiness; Z79.01 Long term (current) use of anticoagulants; R09.02 Hypoxemia; Z79.899 Other long term (current) drug therapy; E87.6 Hypokalemia
CPT/HCPCS: 36415; 71046; 80048; 80053; 85025; 87449; 87633; 93005; 94640; 96361; 96365; 96366; 96367; 96374; 96375; 97802; 99221; 99285; J7050; A4216; G0378; J0696; J2405

== ENCOUNTER → 2023-06-20 | Outpatient (CLI) | payer MEDICARE, SELFPAY ==
--- NOTE | 2023-06-20 13:45 | ECHOD_ITS ---
Reason For Study: PAFIB Procedure This was a 2D Doppler, Color Flow transthoracic echocardiogram. The study was technically difficult. Definity deferred. Exam performed in department. Left Ventricle Normal LV size. Mild concentric left ventricular hypertrophy. Left ventricular systolic function is normal. The estimated ejection fraction is 60 %. Stage 1 diastolic dysfunction. No regional wall motion abnormalities noted. Right Ventricle Normal RV size. Normal systolic function. Atria The left atrium is mildly enlarged. Normal right atrium. Mitral Valve Normal mitral valve. Tricuspid Valve Normal tricuspid valve. Aortic Valve Normal aortic valve. Pulmonic Valve Normal pulmonic valve. Great Vessels Normal aortic root. The pulmonary artery is normal size. Normal inferior vena cava. Pericardium/Pleural No pericardial effusion. MMode/2D Measurements & Calculations LVIDd: 4.7 cm IVSd: 1.3 cm Ao root diam: 2.9 cm LVIDs: 2.9 cm LVPWd: 1.7 cm FS: 39.1 % LAV(MOD-bp): 91.8 ml LVAd ap4: 19.7 cm2 SV(MOD-sp4): 33.5 ml LAV(MOD-bp) Indexed: 49.9 ml/m2 LVLd ap4: 6.2 cm LAV(MOD-sp2): 83.7 ml EDV(MOD-sp4): 52.2 ml LAV(MOD-sp4): 81.7 ml EDV(sp4-el): 53.1 ml LVAs ap4: 10.8 cm2 LVLs ap4: 5.1 cm ESV(MOD-sp4): 18.7 ml ESV(sp4-el): 19.4 ml EF(MOD-sp4): 64.2 % EF(sp4-el): 63.4 % SV(sp4-el): 33.7 ml LA A4 area: 25.9 cm2 LA dimension(2D): 4.2 cm RA A4 area: 12.4 cm2 TAPSE: 2.6 cm Time Measurements MV dec time: 0.23 sec Doppler Measurements & Calculations MV E max corbin: 82.4 cm/sec Lat Peak E' Corbin: 6.3 cm/sec Med Peak E' Corbin: 6.2 cm/sec MV A max corbin: 107.5 cm/sec E/E' lat: 13.2 E/E' med: 13.3 MV E/A: 0.77 MV V2 max: 135.5 cm/sec Ao V2 max: 165.1 cm/sec MV max P.3 mmHg MV dec slope: 375.7 cm/sec2 Ao max P.9 mmHg MV V2 mean: 78.2 cm/sec Ao V2 mean: 115.2 cm/sec MV mean P.8 mmHg Ao mean P.1 mmHg MV V2 VTI: 42.0 cm Ao V2 VTI: 35.3 cm AV (velocity ratio): 0.70 LV V1 max: 115.2 cm/sec MR max corbin: 639.7 cm/sec PA V2 max: 145.0 cm/sec LV V1 max P.3 mmHg MR max P.7 mmHg PA max PG (full): 4.7 mmHg LV V1 mean P.8 mmHg MR mean corbin: 546.3 cm/sec PA V2 mean: 77.5 cm/sec LV V1 mean: 77.2 cm/sec MR mean P.3 mmHg PA mean PG (full): 0.99 mmHg LV V1 VTI: 24.8 cm MR VTI: 250.4 cm ECHO/Echo Complete Interpretation Summary Normal LV size. Left ventricular systolic function is normal. The estimated ejection fraction is 60 %. Mild concentric left ventricular hypertrophy. The left atrium is mildly enlarged. Stage 1 diastolic dysfunction. Ordering Physician: Daniel Austin Referring Physician: Daniel Austin Performed By: Magdalena Rascon RCS
== END | disposition home or self-care (01) ==
PROVIDERS: PCP Family Medicine; Referring Provider Internal Medicine Cardiovascular Disease; Visit Provider Internal Medicine Cardiovascular Disease
DX: I48.0 Paroxysmal atrial fibrillation (principal)
CPT/HCPCS: 93306

== ENCOUNTER 2023-11-17 09:39 | Emergency (ER) | payer MEDICARE, SELFPAY ==
[2023-11-17 09:40] VITALS: BP 168/93; PULSE 79; RESP 16; TEMP 36.6; O2SAT 100; BMI 23.6
--- NOTE | 2023-11-17 10:12 | EDS_ITS ---
HPI History of Present Illness Chief Complaint: Nausea/Vomiting PFSH PFSH Medical History Afib Chronic anticoagulation Essential hypertension History of atrial fibrillation Hyperlipidemia Influenza A Osteoarthritis Paroxysmal atrial fibrillation Home Medications diltiazem HCl 120 mg capsule,extended release 12 hr 120 mg PO Q12H heart rate 05/02/22 [History Last Taken 11/16/22] flecainide 50 mg tablet 50 mg PO Q12H heart rate 05/02/22 [History Last Taken 11/16/22] rivaroxaban 20 mg tablet (Xarelto) 20 mg PO DAILY blood thinner 05/02/22 [History Last Taken 11/15/22] lutein 20 mg capsule 20 mg PO DAILY eyes 11/14/22 [History Last Taken 11/13/22] multivitamin 1 tab PO DAILY supplment 11/14/22 [History Last Taken 11/13/22] atorvastatin 20 mg tablet 20 mg PO QHS 06/10/23 [History Last Taken Unknown] ondansetron 4 mg disintegrating tablet 4 mg PO Q8H PRN PRN Nausea #10 tabs 11/17/23 [Rx Last Taken Unknown] Allergy/AdvReac Type Severity Reaction Status Date / Time No Known Allergies Allergy Verified 06/10/23 12:59 Family History Mother Heart disease Diabetes Myocardial infarction Macular degeneration CAD (coronary artery disease) Father CAD (coronary artery disease) Myocardial infarction Hypertension Brother Cancer Surgical History History of colonoscopy History of electrophysiologic study (12/04/12) History of hip replacement Hx of tonsillectomy Social History household members: spouse Smoking Status: Never smoker alcohol intake: current alcohol intake frequency: holidays/special occasions only substance use type: does not use caffeine: Yes Type: coffee Number of servings: 2 EXAM Physical Exam Const Vital Signs: 11/17/23 09:40 Temperature 97.8 F Temperature Source Temporal Pulse Rate 79 Respiratory Rate 16 Blood Pressure 168/93 H Blood Pressure Mean 118 Pulse Ox 100 MDM MDM MDM Narrative Medical decision making narrative: HISTORY OF PRESENT ILLNESS: 78-year-old female presents with concern for nausea vomiting. States she think she may have the stomach flu. States has been vomiting since yesterday. She cannot keep anything down. REVIEW OF SYSTEMS: Pertinent positives: Nausea and vomiting Pertinent negatives: Abdominal pain, chest pain, shortness of breath, palpitations PHYSICAL EXAM: Nursing triage notes reviewed, Vital signs reviewed Constitutional: please see [facility] HENT: MMM Eyes: Pupils equal round and reactive to light, Extraocular muscles intact Neck: No stridor, no JVD, full neck ROM Lungs: Clear to auscultation, No wheezing or rales. No increased work of breathing, no conversational dyspnea, no accessory muscle use, no nasal flaring. No respiratory distress noted Heart: Regular rate and rhythm, No murmurs, No rubs and No gallops, 2+ distal pulses (radial, femoral, posterior tibial) in all extremities Abdomen: Soft, there is no tenderness, rigidity, rebound or guarding, no obvious peritoneal signs, no palpable pulsatile abdominal masses, no auscultated abdominal bruit : No CVAT Extremities: No edema Neuro: No focal neurological deficits, cranial nerves II through XII intact, 5/5 strength in all extremities. Intact sensation to light touch in all extremities, 2+ reflexes bilateral patella tendons. Normal gait. No ataxia. Skin: No rash or lesions noted MEDICAL DECISION MAKING: Chief Complaint: Nausea vomiting External records reviewed: No recent [place] imaging of the abdomen or pelvis noted Factors affecting care: Atrial fibrillation, hyperlipidemia, hypertension Social determinants of health: none History obtained from others: none Consults: none [facility] Narrative: The patient was initially hemodynamically stable, afebrile, nontoxic-appearing. Exam without significant abdominal tenderness, no peritoneal signs, no distention rebound or guarding. I considered acute surgical abdominal processes however patient's abdominal exam is benign she is not complain of abdominal pain she had normal vitals have a low suspicion for perforation or obstruction or acute surgical process at this time. No indication for advanced imaging at this time. I considered the following differential diagnosis: Dehydration, electrolyte disturbance, flu, COVID I gave the patient IV Zofran, fluids and Pepcid for symptomatic relief. I obtained a broad lab workup to further elucidate etiology patient complains ALL IMAGES (IF OBTAINED) HAVE BEEN PERSONALLY REVIEWED AND INTERPRETED BY MYSELF. CBC with leukocytosis suggestive of systemic inflammation, no anemia or thrombocytopenia CMP with hyponatremia, hypokalemia suggestive of loss from vomiting, no FAINA, no anion gap to suggest endorgan hypoperfusion, no evidence of hepatobiliary obstruction Lipase is wnl indicating no pancreatic inflammation. COVID/flu is negative The patient was reassessed noted symptomatic improvement. She is able tolerate p.o. Repeat abdominal exam is benign. Patient's etiology is likely viral gastroenteritis. Patient plan for discharge home with [facility]. The patient and/or family, caregivers express understanding. The patient and/or family, caregivers agrees with the plan. Shared decision making: I will have a discussion with the patient and or visitors regarding risk/benefits of further testing or admission. They will be made aware of of the risk/benefits inherent in this decision they will be given the opportunity to voice understanding. Total critical care time today provided was at least 0 minutes. This excludes separately billable procedures. Critical care time (if documented) is secondary to the patient having high probability of clinically significant/life threatening deterioration in the patient's condition which required my urgent intervention. Impression: 1. Nausea and vomiting 2. Hyponatremia 3. Hypokalemia 4. Leukocytosis Dispo: Discharge home Lab Data Attestation: I reviewed the patient's lab results. Labs: Laboratory Results - last 24 hr 11/17/23 10:11 WBC 12.6 H RBC 4.33 Hgb 12.6 Hct 39.3 MCV 90.8 MCH 29.1 MCHC 32.1 RDW Std Deviation 46.5 H RDW Coeff of Gordon 13.9 Plt Count 283 MPV 9.0 Immature Gran % (Auto) 0.500 Neut % (Auto) 85.1 H Lymph % (Auto) 9.0 L [place] % (Auto) 4.8 Eos % (Auto) 0.3 Baso % (Auto) 0.3 Absolute Neuts (auto) 10.7 H Absolute Lymphs (auto) 1.13 Nucleated RBC % 0 Sodium 132 L Potassium 3.4 L Chloride 97 L Carbon Dioxide 30.0 Anion Gap 5 BUN 10 Creatinine 0.96 Estim Creat Clear Calc 45.45 Est GFR (MDRD) Af Amer 72 Est GFR (MDRD) Non-Af 59 L BUN/Creatinine Ratio 10.4 Glucose 118 H Calcium 9.6 Total Bilirubin 0.70 AST 13 L ALT 17 Alkaline Phosphatase 111 Total Protein 6.7 Albumin 3.0 L Globulin 3.7 Albumin/Globulin Ratio 0.8 L Lipase 36 Discharge Plan Triage Chief Complaint: Nausea/Vomiting ED Provider: Daniel Coyne Dx/Rx/DC Orders Instructions: ED Vomiting (Adult) Prescriptions: New ondansetron 4 mg tablet,disintegrating 4 mg PO Q8H PRN PRN (Reason: Nausea) Qty: 10 0RF No Action atorvastatin 20 mg tablet 20 mg PO QHS Patient Comments: TAKE 1 TABLET BY MOUTH AT BEDTIME diltiazem HCl 120 mg Capsule,Extended Release 12 Hr 120 mg PO Q12H flecainide 50 mg Tablet 50 mg PO Q12H Xarelto 20 mg Tablet 20 mg PO DAILY multivitamin Tablet 1 tab PO DAILY lutein 20 mg Capsule 20 mg PO DAILY Rx Instructions: give with meal/snack Primary Care Provider: Deven Dunaway Referrals: Deven Dunaway MD [Primary Care Provider] - Activity Restrictions/Additional Instructions: Thank you for trusting us with your care today! Please take Tylenol (2 pills, 650 mg), ibuprofen (2 pills, 400 mg) every 6 hours as needed for pain and fever control. Please take Zofran as prescribed. Please drink an electrolyte containing solutions such as body armor, Pedialyte or Gatorade for rehydration. Please return to the emergency department if your symptoms change or worsen. Specifically if you cannot take liquids or food by mouth. Please follow with your primary care physician for further outpatient evaluation and management. Disposition Disposition: Home, Self Care
[2023-11-17] MEDS: 0.9% Normal Saline (1000mL) 1,000 ML 1000 ML IV (10:36)
[2023-11-17] MEDS: Ondansetron 4 MG/2 ML Vial IV (10:36)
[2023-11-17] MEDS: Famotidine 200 MG/20 ML MDV 20 MG in 0.9% Normal Saline (Pres. free 8 ML 300 MG IV (10:36)
[2023-11-17 10:41] LABS: Absolute Lymphocyte Count 1.13 X10^3/uL (0.83-4.51); Absolute Neutrophil Count 10.7 X10^3/uL (2.0-7.7); Basophil# 0.04 X10^3/uL; Basophil% 0.3 % (0-1); Eosinophil# 0.04 X10^3/uL; Eosinophils% 0.3 % (0-5); Hematocrit 39.3 % (37-47); Hemoglobin 12.6 g/dL (12.0-15.0); Lymphocyte # 1.13 X10^3/ul (0.83-4.51); Mean Corp Hgb Conc 32.1 g/dL (32-36); Mean Corpuscular Hgb 29.1 pg (27.0-32.0); Mean Corpuscular Volume 90.8 fL (81-99); Monocyte# 0.61 X10^3/uL; Monocyte% 4.8 % (0-10); NRBC Flagged by Analyzer 0 % (0-5); Neutrophil # 10.73 X10^3/uL (2.7-7.7); Neutrophil % 85.1 % (47-70); Platelet Count 283 K/mm3 (150-450); RBC Distribution Width CV 13.9 % (11.6-14.6); RBC Distribution Width SD 46.5 fl (35.1-43.9); Red Blood Count 4.33 M/mm3 (4.2-5.4); White Blood Count 12.6 K/mm3 (4.4-11.0)
[2023-11-17 10:51] LABS: ALB/GLOB Ratio 0.8 RATIO (0.9-2.4); AST(SGOT) 13 U/L (15-37); Alanine Aminotransfer ALT/SGPT 17 U/L (13-56); Alkaline Phosphatase 111 U/L (45-117); Anion Gap 5 (5-15); BUN 10 mg/dL (7-18); BUN/Creat Ratio 10.4 RATIO (10-20); Calcium,Total 9.6 mg/dL (8.5-10.1); Chloride 97 mmol/L (98-107); Creatinine, Serum 0.96 mg/dL (0.55-1.02); EST Glomerular Filtration Rate 59 mL/min (>60); Est Glom Filt Rate - Afr Amer 72 mL/min (>60); Estimated Creatinine Clearance 45.45 ml/min; Globulin 3.7 g/dL (2.2-4.2); Glucose 118 mg/dL (74-106); Lipase 36 U/L (13-75); Potassium 3.4 mmol/L (3.5-5.1); Protein, Total 6.7 g/dL (6.4-8.2); Sodium Level 132 mmol/L (136-145)
[2023-11-17] MEDS: Potassium Chloride Oral Tablet 20 MEQ 40 MEQ PO (11:14)
== END 2023-11-17 12:05 | disposition home or self-care (01) ==
PROVIDERS: Emergency Provider Emergency Medicine; PCP Family Medicine; Visit Provider Emergency Medicine
DX: R11.2 Nausea with vomiting, unspecified (principal); I48.0 Paroxysmal atrial fibrillation; E87.1 Hypo-osmolality and hyponatremia; E87.6 Hypokalemia; I10 Essential (primary) hypertension; D72.829 Elevated white blood cell count, unspecified; E78.5 Hyperlipidemia, unspecified; Z79.01 Long term (current) use of anticoagulants; Z79.899 Other long term (current) drug therapy
CPT/HCPCS: 80053; 83690; 85025; 87428; 96365; 96375; 99283; J7030; A4216; J2405; J3490

== ENCOUNTER 2023-11-28 06:08 | Emergency (ER) | payer MEDICARE, SELFPAY ==
[2023-11-28] VITALS (8 sets, daily range): BP systolic 172–222; BP diastolic 62–114; PULSE 63–82; RESP 16–19; TEMP 36; O2SAT 98; BMI 24.5
--- NOTE | 2023-11-28 06:17 | CT_ITS ---
INDICATION: trauma EXAMINATION: CT BRAIN - CT Head or Brain W/O Contrast Injection TECHNIQUE: Multiple axial images were obtained of the head without intravenous contrast. A radiation dose optimization technique was used for this scan. IV Contrast dosage and agent: None. RADIATION DOSAGE (If Supplied By Facility): CTDIvol = ( 44.99 ) mGy, DLP = ( 762.36 ) mGycm COMPARISON: None. FINDINGS: BRAIN: No acute bleed. No edema. Mild decreased attenuation in the periventricular white matter bilaterally. Cardoza-white matter differentiation is maintained. Arterial calcifications. VENTRICLES AND SULCI: Not dilated. EXTRA-AXIAL: No hemorrhage, fluid collection, or mass. CALVARIUM / SKULL BASE: Unremarkable. FACE/SINUSES: Mucosal thickening right maxillary and sphenoid sinuses. SOFT TISSUES: Unremarkable. CT/Brain/Head without Contrast IMPRESSION: No acute abnormality. Chronic microvascular ischemic disease. Electronically Signed: Cindi Remy MD at 7:13 EST ,
--- NOTE | 2023-11-28 06:17 | RAD_ITS ---
INDICATION: cough EXAMINATION/TECHNIQUE: X-RAY - XR Chest 2 Views COMPARISON: 11/16/2022 FINDINGS: LINES/DEVICES: None. LUNGS: No consolidation. Small right pleural effusion versus pleural thickening. No pneumothorax. MEDIASTINUM: Aorta is atherosclerotic. CARDIAC SILHOUETTE: Not enlarged. BONES AND SOFT TISSUES: No acute abnormalities. Degenerative changes dorsal spine RAD/Chest PA and Lateral IMPRESSION: Small right pleural effusion versus pleural thickening. No infiltrates. Electronically Signed: Cindi Remy MD at 7:17 EST ,
--- NOTE | 2023-11-28 06:18 | EDS_ITS ---
HPI <Dr. Oswaldo King MD - Last Filed: 11/28/23 07:00> History of Present Illness Chief Complaint: Syncope Informant: patient and spouse/S.O. Narrative Narrative: Patient states she passed out this morning after walking into the kitchen to get a Zofran because of feeling nauseated and bending over after she dropped it. She had prodromal lightheadedness, no other symptoms. She passed out onto the floor. Since she woke up she has a mild headache, think she hit her head in the occipital area, and she has some scrapes on both hands. Denies any other pain or injury. No prodromal dyspnea or chest pain or headache. States that for the past 2 days she has had the stomach flu, but when asking more details, she has had no vomiting or diarrhea, just nausea and a cough and not feeling well. She has felt lightheaded with standing up for the past 2 days, she has had decreased p.o. intake because of nausea but trying to drink fluids, and has noticed that her blood pressure has been on the low side. She states a couple times it was just over 100 and there were a couple times when it was in the high 90s systolic. She denies any urinary frequency or decreased urination. She has a history of atrial fibrillation but typically is symptomatic with palpitations when she goes into it, and she has experienced no palpitations recently. She is anticoagulated on Xarelto because of the A-fib. [facility] <Dr. Oswaldo King MD - Last Filed: 11/28/23 07:00> [facility] Medical History Afib Chronic anticoagulation Essential hypertension History of atrial fibrillation Hyperlipidemia Influenza A Osteoarthritis Paroxysmal atrial fibrillation Home Medications diltiazem HCl 120 mg capsule,extended release 12 hr 120 mg PO Q12H heart rate 05/02/22 [History Last Taken 11/16/22] flecainide 50 mg tablet 50 mg PO Q12H heart rate 05/02/22 [History Last Taken 11/16/22] rivaroxaban 20 mg tablet (Xarelto) 20 mg PO DAILY blood thinner 05/02/22 [History Last Taken 11/15/22] lutein 20 mg capsule 20 mg PO DAILY eyes 11/14/22 [History Last Taken 11/13/22] multivitamin 1 tab PO DAILY supplment 11/14/22 [History Last Taken 11/13/22] atorvastatin 20 mg tablet 20 mg PO QHS 06/10/23 [History Last Taken Unknown] ondansetron 4 mg disintegrating tablet 4 mg PO Q8H PRN PRN Nausea #10 tabs 11/17/23 [Rx Last Taken Unknown] Allergy/AdvReac Type Severity Reaction Status Date / Time No Known Allergies Allergy Verified 06/10/23 12:59 Family History Mother Heart disease Diabetes Myocardial infarction Macular degeneration CAD (coronary artery disease) Father CAD (coronary artery disease) Myocardial infarction Hypertension Brother Cancer Surgical History History of colonoscopy History of electrophysiologic study (12/04/12) History of hip replacement Hx of tonsillectomy Social History household members: spouse Smoking Status: Never smoker alcohol intake: current alcohol intake frequency: holidays/special occasions only substance use type: does not use caffeine: Yes Type: coffee Number of servings: 2 ROS <Dr. Oswaldo King MD - Last Filed: 11/28/23 07:00> ROS ED Constitutional Constitutional ED: Denies chills or fever(s) Eyes Eyes: Denies change in vision or diplopia ENT ENT ED: Denies rhinorrhea or sore throat Cardiovascular Cardiovascular: Reports lightheadedness and syncope; Denies chest pain or palpitations Respiratory/Chest Respiratory/Chest: Reports cough; Denies dyspnea Gastrointestinal Gastrointestinal: Reports nausea; Denies abdominal pain, diarrhea or vomiting Genitourinary Genitourinary ED: Denies dysuria or hematuria Musculoskeletal Musculoskeletal: Denies back pain or neck pain Integumentary Denies abscess or rash Neurologic Neurologic: Denies headache(s), paresthesias or weakness Psychiatric Psychiatric: Denies anxiety or suicidal thoughts EXAM <Dr. Oswaldo King MD - Last Filed: 11/28/23 07:00> Physical Exam Const Vital Signs: 11/28/23 06:09 11/28/23 06:13 11/28/23 06:36 Temperature 96.8 F L Temperature Source Temporal Pulse Rate 82 Respiratory Rate 19 H Respiratory Effort Normal Non-Labored Respiratory Pattern Normal Blood Pressure 172/114 H 172/92 H Blood Pressure Mean 133 118 Pulse Ox 98 Oxygen Delivery Method Room Air 11/28/23 07:16 11/28/23 07:08 11/28/23 07:47 Temperature Temperature Source Pulse Rate Respiratory Rate Respiratory Effort Respiratory Pattern Blood Pressure 193/78 H 205/93 H 222/106 H Blood Pressure Mean 116 130 144 Pulse Ox Oxygen Delivery Method 11/28/23 10:00 11/28/23 10:19 Temperature Temperature Source Pulse Rate 63 Respiratory Rate 16 Respiratory Effort Respiratory Pattern Blood Pressure 173/73 H 186/62 H Blood Pressure Mean 106 103 Pulse Ox 98 Oxygen Delivery Method Room Air Positive well nourished and well developed General Appearance ED: well developed and NAD HEENT Reports moist mucous membranes HEENT Narrative: Small hematoma left occipital without fluctuance, crepitance, depression, or laceration/bleeding. normocephalic Eyes PERRL and EOMs intact bilaterally Neck full ROM, supple and no JVD Resp normal respiratory effort and clear to auscultation bilaterally Cardio regular rate, regular rhythm and no murmurs GI non-tender and non-distended Auscultation: normoactive bowel sounds Palpation: soft Back/Spine no CVA tenderness General Back: other FROM Extremity normal to inspection General Extremety ED: Negative for edema, pulses abnormal or tenderness General Extremity: Negative for edema or pulses abnormal Neuro oriented x3, CN's II-XII intact bilaterally and no sensory deficits noted Sensorium / Orientation: awake and alert Motor Exam: strength 5/5 throughout Skin no rashes or lesions noted and no wounds <Dr. Frida Mg, DO - Last Filed: 11/28/23 10:32> Physical Exam Const Vital Signs: 11/28/23 06:09 11/28/23 06:13 11/28/23 06:36 Temperature 96.8 F L Temperature Source Temporal Pulse Rate 82 Respiratory Rate 19 H Respiratory Effort Normal Non-Labored Respiratory Pattern Normal Blood Pressure 172/114 H 172/92 H Blood Pressure Mean 133 118 Pulse Ox 98 Oxygen Delivery Method Room Air 11/28/23 07:16 11/28/23 07:08 11/28/23 07:47 Temperature Temperature Source Pulse Rate Respiratory Rate Respiratory Effort Respiratory Pattern Blood Pressure 193/78 H 205/93 H 222/106 H Blood Pressure Mean 116 130 144 Pulse Ox Oxygen Delivery Method 11/28/23 10:00 11/28/23 10:19 Temperature Temperature Source Pulse Rate 63 Respiratory Rate 16 Respiratory Effort Respiratory Pattern Blood Pressure 173/73 H 186/62 H Blood Pressure Mean 106 103 Pulse Ox 98 Oxygen Delivery Method Room Air MDM <Dr. Oswaldo King MD - Last Filed: 11/28/23 07:00> [facility] Narrative Medical decision making narrative: Here, the patient's blood pressure is actually high. Empiric IV fluids ordered in addition to Zofran if she wants it, differential here includes anemia, cardiac dysrhythmia/acute [place], orthostasis due to mild dehydration which is thou ght to be more likely given the story, COVID/influenza/pneumonia also in the differential so testing for all of this. I am not concerned about a PE here since she has no clinical signs or symptoms of DVT and is already anticoagulated. Also sending her for a head CT to rule out intracranial injury due to hitting her head. I reviewed the head CT images, they appear unremarkable for intracranial injury on my interpretation. Her EKG and labs are unremarkable. She is not anemic. This time we are awaiting viral swabs and chest x-ray and reevaluation after IV fluids. Will check out to ED physician at shift change. Lab Data Attestation: I reviewed the patient's lab results. Labs: Laboratory Results - last 24 hr 11/28/23 06:25 WBC 9.1 RBC 4.35 Hgb 12.5 Hct 38.5 MCV 88.5 MCH 28.7 MCHC 32.5 RDW Std Deviation 46.0 H RDW Coeff of Gordon 14.3 Plt Count 251 MPV 8.7 Immature Gran % (Auto) 0.900 Neut % (Auto) 77.3 H Lymph % (Auto) 11.9 L [place] % (Auto) 8.9 Eos % (Auto) 0.2 Baso % (Auto) 0.8 Absolute Neuts (auto) 7.0 Absolute Lymphs (auto) 1.08 Nucleated RBC % 0 Sodium 137 Potassium 3.3 L Chloride 99 Carbon Dioxide 31.0 Anion Gap 7 BUN 11 Creatinine 1.06 H Estim Creat Clear Calc 41.16 Est GFR (MDRD) Af Amer 64 Est GFR (MDRD) Non-Af 53 L BUN/Creatinine Ratio 10.4 Glucose 110 H Calcium 8.8 Troponin I High Sens 16 Radiography Diagnostic Testing: Clinical Impression(s) from Imaging Studies Brain CT 11/28/23 06:17 IMPRESSION: No acute abnormality. Chronic microvascular ischemic disease. Electronically Signed: Cindi Remy MD at 7:13 EST Reading Location ID and State: [facility] / [place] Tel , Service support , Chest X-Ray 11/28/23 06:17 IMPRESSION: Small right pleural effusion versus pleural thickening. No infiltrates. Electronically Signed: Cindi Remy MD at 7:17 EST , Rhythm Strip Rhythm Strip: Sinus Rhythm Rate: 87 Ectopy: PVC(s) EKG Initial EKG: Attestation: I personally reviewed and interpreted this EKG as follows: Interpretation: Sinus Rhythm and No Acute Injury Pattern Comments: nml except for PVC Prior EKG tracings: available for review Prior: Unchanged <Dr. Frida Mg, DO - Last Filed: 11/28/23 10:32> [facility] Narrative Medical decision making narrative: Here, the patient's blood pressure is actually high. Empiric IV fluids ordered in addition to Zofran if she wants it, differential here includes anemia, cardiac dysrhythmia/acute [place], orthostasis due to mild dehydration which is thought to be more likely given the story, COVID/influenza/pneumonia also in the differential so testing for all of this. I am not concerned about a PE here since she has no clinical signs or symptoms of DVT and is already anticoagulated. Also sending her for a head CT to rule out intracranial injury due to hitting her head. I reviewed the head CT images, they appear unremarkable for intracranial injury on my interpretation. Her EKG and labs are unremarkable. She is not anemic. This time we are awaiting viral swabs and chest x-ray and reevaluation after IV fluids. Will check out to ED physician at shift change. And out to me at shift change. Workup is largely normal. Viral panel is negative. Patient has a negative CT of the brain for any acute intracranial process. Chest x-ray reviewed by myself as well as radiology does not show any acute infiltrate. There is a small right pleural effusion however patient is 98% on room air. Patient received IV fluids and symptomatically feeling much better however she is now hypertensive. Has not had Cardizem for the past 2+ days. Has continued to take her flecainide and her Xarelto. States that she received was decreased to 60 mg of diltiazem and will give her 60 mg oral diltiazem in the ER and recheck her blood pressure. Patient has minimal improvement of her blood pressure after receiving 60 mg of oral diltiazem after an hour. Is given 10 mg IV labetalol. Blood pressure is now down from over 200 286 systolic. Patient is asymptomatic and continues states she feels much better. Will discharge home with instructions to do her home blood pressure and other cardiac medications keep a blood pressure log and follow-up with her primary care doctor. Is given return precautions. Counseled to drink plenty of fluids. Patient verbalized agreement understand this plan. Discharged home in stable condition. Lab Data Labs: Laboratory Results - last 24 hr 11/28/23 06:25 WBC 9.1 RBC 4.35 Hgb 12.5 Hct 38.5 MCV 88.5 MCH 28.7 MCHC 32.5 RDW Std Deviation 46.0 H RDW Coeff of Gordon 14.3 Plt Count 251 MPV 8.7 Immature Gran % (Auto) 0.900 Neut % (Auto) 77.3 H Lymph % (Auto) 11.9 L [place] % (Auto) 8.9 Eos % (Auto) 0.2 Baso % (Auto) 0.8 Absolute Neuts (auto) 7.0 Absolute Lymphs (auto) 1.08 Nucleated RBC % 0 Sodium 137 Potassium 3.3 L Chloride 99 Carbon Dioxide 31.0 Anion Gap 7 BUN 11 Creatinine 1.06 H Estim Creat Clear Calc 41.16 Est GFR (MDRD) Af Amer 64 Est GFR (MDRD) Non-Af 53 L BUN/Creatinine Ratio 10.4 Glucose 110 H Calcium 8.8 Troponin I High Sens 16 Radiography Diagnostic Testing: Clinical Impression(s) from Imaging Studies Brain CT 11/28/23 06:17 IMPRESSION: No acute abnormality. Chronic microvascular ischemic disease. Electronically Signed: Cindi Remy MD at 7:13 EST , Chest X-Ray 11/28/23 06:17 IMPRESSION: Small right pleural effusion versus pleural thickening. No infiltrates. Electronically Signed: Cindi Remy MD at 7:17 EST , Discharge Plan Triage Chief Complaint: Syncope ED Provider: Oswaldo King Dx/Rx/DC Orders Clinical Impression: Orthostatic syncope, Closed head injury, Skin tear of left hand without complication, Skin tear of right hand without complication, Nausea, Essential hypertension Instructions: ED Hypertension, Established, ED Hypotension, Orthostatic Prescriptions: No Action atorvastatin 20 mg tablet 20 mg PO QHS Patient Comments: TAKE 1 TABLET BY MOUTH AT BEDTIME diltiazem HCl 120 mg Capsule,Extended Release 12 Hr 120 mg PO Q12H flecainide 50 mg Tablet 50 mg PO Q12H Xarelto 20 mg Tablet 20 mg PO DAILY multivitamin Tablet 1 tab PO DAILY lutein 20 mg Capsule 20 mg PO DAILY Rx Instructions: give with meal/snack ondansetron 4 mg tablet,disintegrating 4 mg PO Q8H PRN PRN (Reason: Nausea) Qty: 10 0RF Primary Care Provider: Deven Dunaway Referrals: Deven Dunaway MD [Primary Care Provider] - Activity Restrictions/Additional Instructions: We suspect you had some dehydration that led to your low blood pressures earlier and your fall. No signs of trauma or acute kidney injury workup. While in your ER your blood pressures are actually elevated. Please continue take your regular blood pressure medications as prescribed, keep log of your blood pressure (check 1-2 times a day) and follow-up with your primary care doctor. If you have further symptoms please return to the emergency room. Disposition Disposition: Home, Self Care
[2023-11-28] MEDS: 0.9% Normal Saline (1000mL) 1,000 ML 1000 ML IV (06:31)
[2023-11-28 06:32] LABS: Absolute Lymphocyte Count 1.08 X10^3/uL (0.83-4.51); Basophil# 0.07 X10^3/uL; Basophil% 0.8 % (0-1); Eosinophil# 0.02 X10^3/uL; Eosinophils% 0.2 % (0-5); Hematocrit 38.5 % (37-47); Hemoglobin 12.5 g/dL (12.0-15.0); Lymphocyte # 1.08 X10^3/ul (0.83-4.51); Lymphocyte % 11.9 % (19-41); Mean Corp Hgb Conc 32.5 g/dL (32-36); Mean Corpuscular Hgb 28.7 pg (27.0-32.0); Mean Corpuscular Volume 88.5 fL (81-99); Mean Platelet Vol. 8.7 fl (6.2-12.0); Monocyte# 0.81 X10^3/uL; Monocyte% 8.9 % (0-10); NRBC Flagged by Analyzer 0 % (0-5); Neutrophil # 7.04 X10^3/uL (2.7-7.7); Neutrophil % 77.3 % (47-70); Platelet Count 251 K/mm3 (150-450); RBC Distribution Width CV 14.3 % (11.6-14.6); Red Blood Count 4.35 M/mm3 (4.2-5.4); White Blood Count 9.1 K/mm3 (4.4-11.0)
--- OUTSIDE RECORDS SUMMARY | 2023-11-28 06:42 | XMS RPT_ITS | CCD ---
Author Name Unknown Address [address] [place] [address] Organization [facility] Care Team Providers Care Board Certified Music Therapist Name Role Phone DEVEN DUNAWAY Referring Unavailable JAYA, DR DINA Serrano Attending Unavaila ble JAYA, DR DINA Serrano Primary Care Unavaila ble JAYA, DR DINA Serrano Admitting Unavaila ble DEVEN DUNAWAY Consulting Unavailable PROVIDER, UNKNOWN Consulting Unavailable PROVIDER, UNKNOWN Consulting Unavailable PROVIDER, UNKNOWN Consulting Unavailable DEVEN DUNAWAY Attending Unavailable DEVEN DUNAWAY Consulting Unavailable DEVEN DUNAWAY Primary Care Unavailable DEVEN DUNAWAY Admitting Unavailable PROVIDER, UNKNOWN Consulting Unavailable PROVIDER, UNKNOWN Consulting Unavailable PROVIDER, UNKNOWN Consulting Unavailable DEVNE DUNAWAY Consulting Unavailable LINDA CORNELL MD Admitting Unavailable LINDA CORNELL MD Attending Unavailable LINDA CORNELL MD Primary Care Unavailable PROVIDER, UNKNOWN Consulting Unavailable PROVIDER, UNKNOWN Consulting Unavailable PROVIDER, UNKNOWN Consulting Unavailable Deven Dunaway MD Unavailable Dr. Maricel Lloyd MD Unavailable [phone] [facility] ([facility]) Unavailable Dr. Shakeel Lloyd MD Unavailable [phone] Gilda Tadeo MD ([place]) Unavailable Dr. Gavin Sena DO Unavailable Dr. Rena Rios DPM Unavailable [phone] Julio Cesar EATON, Anusha Deleon Unavailable [phone] Jenny Soriano MA Unavailable Unavailable Gogoi (scribe), Hemanta Unavailable Unavaila Rena Turcios LPN Unavailable Unavailable Justice Rodriguez MD Unavailable Debbie Varghese Unavailable Unavailable Annette Mari TANG Unavailable Unavaila ble Luis A REGROOVER, Marsha Unavailable Unavailable Sherley JEFFERSON, Gail Yap Unavailable Unavaila ble Gonzalez REGROOVER, Srikanth Unavailable Unavailable [facility] Raphael Unavailable Unavailab celestina De La Rosa RN, Sunshine Burks Unavailable Unavailable Mutersbaugh REGROOVER, Ani K Unavailable Unavai paul Brewer PA-C, Tala Deleon Unavailable Victor Hugo ([facility]), Cj Unavailable Unavailab le Brandan REGROOVER, Batool Ludwig Unavailable Unavailab celestina Dennisey REGROOVER, Jodi West Unavailable Unavailab celestina Dsouza MA, Marsha Unavailable Unavailable Wengererik REGROOVER, Jana Unavailable Unavailabl e Harpal REGROOVER, Samina N Unavailable Unavaila ble Unavailable Unavailable Kaitlin REGROOVER, Teena Unavailable Medications Current Medications Medication Drug Class(es) Dates Sig (Normalized) Sig (Original) atorvastatin 20 mg oral tablet (12 sources) HMG-CoA Reductase Inhibitor Start: 09-12-2023 atorvastatin 20 mg tablet ; 1 (one) Tablet qhs for 0 days Quantity: 90 {Tablet} Refills: 1 Ordered: 12-Sep-2023 MD Deven Dunaway Start: 12-Sep-2023 12 hr dilTIAZem hydrochloride 60 mg extended release oral capsule (12 sources) Calcium Channel Laura Start: 11-26-2023 dilTIAZem ER 60 mg capsule,extended release 12 hr ; 1 (one) Capsule two times daily for 0 days Quantity: 120 {Capsule} Refills: 5 Ordered: 26-Nov-2023 MD Deven Dunaway Start: 26-Nov-2023 Comments: pharmacist: DOSE change to 60mg ER bid Completed/Discontinued Medications Medication Drug Class(es) Dates Sig (Normalized) Sig (Original) 8 hr acetaminophen 650 mg extended release oral tablet (6 sources) Start: 10-26-2020 End: 01-31-2021 take 2 tablets by mouth every eight hours for pain Acetaminophen ER 650 MG Oral Tablet Extended Release ; 2 (two) Tablet every eight hours for pain for 0 days Quantity: 180 {Tablet} Refills: 3 Ordered: 31-Jan-2021 LI Lepe Start: 26-Oct-2020 End: 31-Jan-2021 Status: Inactive [id number] 200 actuat albuterol 0.09 mg/actuat metered dose inhaler (6 sources) beta2-Adrenergic Agonist Start: 04-02-2013 End: 01-26-2014 take 2 puff(s) by inhalation every four to six hours as needed PROAIR HFA, 108 (90 Base)MCG/ACT (Inhalation Aerosol Solution) ; 2 (two) puff(s) every 4-6 hours or as needed for shortness of breath for 0 days Quantity: 1 {inhaler(s)} Refills: 0 Ordered: 26-Jan-2014 KITTY Rowan Start: 02-Apr-2013 End: 26-Jan-2014 Status: Inactive Comments: Medication taken as needed. Problems Active Problems Problem Classification Problem Date Documented Da te Episodic/Chronic Abdominal pain (6 sources) Abdominal pain; Translations: [Unspecified abdominal pain] 01-31-2021 Episodic Acute bronchitis (12 sources) Acute bronchitis; Translations: [Acute bronchitis, unspecified] Onset: 1 03-30-2021 Episodic Allergic reactions (20 sources) Contact dermatitis; Translations: [Unspecified contact dermatitis, unspecified cause] 10-26-2020 Episodic Cardiac dysrhythmias (20 sources) Paroxysmal atrial fibrillation; Translations: [Paroxysmal atrial fibrillation] 11-20-2023 Chronic Chronic obstructive pulmonary disease and bronchiectasis (18 sources) Bronchitis; Translations: [Bronchitis, not specified as acute or chronic] 07-10-2023 Episodic Conditions associated with dizziness or vertigo (18 sources) Vertigo; Translations: [Dizziness and giddiness] 07-10-2023 Episodic Disorders of lipid metabolism (20 sources) Hyperlipoproteinemia; Translations: [Hyperlipidemia, unspecified] 11-20-2023 Chronic Essential hypertension (20 sources) Hypertensive disorder; Translations: [Essential (primary) hypertension] Onset: 0 11-20-2023 Chronic Gastrointestinal hemorrhage (6 sources) Gastrointestinal hemorrhage; Translations: [Hemorrhage of anus and rectum] 08-21-2021 Episodic Genitourinary symptoms and ill-defined conditions (20 sources) Nocturia; Translations: [Nocturia] 11-20-2023 Episodic Hemorrhoids (12 sources) External hemorrhoids; Translations: [Residual hemorrhoidal skin tags] 11-20-2023 Episodic Immunizations and screening for infectious disease (20 sources) Needs influenza immunization; Translations: [Encounter for immunization] 09-17-2016 Episodic Inflammation; infection of eye (except that caused by tuberculosis or sexually transmitteddisease) (12 sources) Conjunctivitis, unspecified 10-26-2020 Episodic Influenza (12 sources) Influenza due to Influenza A virus; Translations: [Influenza due to other identified influenza virus with other respiratory manifestations] 11-22-2022 Episodic Nausea and vomiting (14 sources) Nausea; Translations: [Nausea] 07-11-2022 Episodic Noninfectious gastroenteritis (18 sources) Gastroenteritis; Translations: [Noninfective gastroenteritis and colitis, unspecified] 11-20-2023 Episodic Nonspecific chest pain (12 sources) Chest pain on exertion; Translations: [Chest pain, unspecified] 10-26-2020 Episodic Nutritional deficiencies (20 sources) Iron deficiency; Translations: [Iron deficiency] 11-20-2023 Episodic Osteoarthritis (20 sources) Osteoarthritis of knee; Translations: [Osteoarthritis of knee, unspecified] 11-20-2023 Chronic Other and unspecified benign neoplasm (12 sources) Polyp of colon; Translations: [Polyp of colon] 11-20-2023 Episodic Other circulatory disease (20 sources) Orthostatic hypotension; Translations: [Orthostatic hypotension] 10-26-2020 Episodic Other circulatory disease (6 sources) Ecchymosis; Translations: [Hemorrhage, not elsewhere classified] 09-29-2015 Episodic Other connective tissue disease (18 sources) Plantar fasciitis; Translations: [Plantar fascial fibromatosis] 10-26-2020 Episodic Other ear and sense organ disorders (12 sources) Impacted cerumen 10-26-2020 Episodic Other gastrointestinal disorders (12 sources) Occult blood in stools; Translations: [Other fecal abnormalities] 10-26-2020 Episodic Other lower respiratory disease (10 sources) Cough; Translations: [Cough] 11-20-2023 Episodic Other non-traumatic joint disorders (6 sources) Hip pain; Translations: [Pain in unspecified hip] 05-01-2019 Episodic Other nutritional; endocrine; and metabolic disorders (20 sources) Overweight in adulthood with body mass index of 25 or more but less than 30; Translations: [Body mass index (BMI) 26.0-26.9, adult] 02-24-2019 Episodic Other nutritional; endocrine; and metabolic disorders (20 sources) Overweight; Translations: [Overweight] 10-26-2020 Episodic Other screening for suspected conditions (not mental disorders or infectious disease) (20 sources) Patient encounter status; Translations: [Encounter for other screening for malignant neoplasm of breast] 10-26-2020 Episodic Other skin disorders (12 sources) Seborrheic keratosis; Translations: [Other seborrheic keratosis] 10-26-2020 Episodic Peripheral and visceral atherosclerosis (6 sources) Intermittent claudication; Translations: [Peripheral vascular disease, unspecified] 07-20-2016 Chronic Pneumonia (except that caused by tuberculosis or sexually transmitted disease) (6 sources) Pneumonia; Translations: [Pneumonia, unspecified organism] 11-15-2022 Episodic Residual codes; unclassified (20 sources) Insomnia; Translations: [Insomnia, unspecified] 11-20-2023 Episodic Residual codes; unclassified (12 sources) Sedentary lifestyle; Translations: [Other specified personal risk factors, not elsewhere classified] 10-26-2020 Episodic Retinal detachments; defects; vascular occlusion; and retinopathy (12 sources) Degenerative disorder of macula ; Translations: [Unspecified macular degeneration] 10-26-2020 Chronic Sprains and strains (6 sources) Strain of knee; Translations: [Strain of unspecified muscle(s) and tendon(s) at lower leg level, right leg, initial encounter] 09-15-2019 Episodic Syncope (6 sources) Syncope; Translations: [Syncope and collapse] 05-07-2022 Episodic Unclassified (6 sources) Number of Children 04-08-2023 Past or Other Problems Problem Classification Problem Date Documented Da te Episodic/Chronic Conditions associated with dizziness or vertigo (11 sources) Conditions associated with dizziness or vertigo 07-01-2023 Headache; including migraine (6 sources) Headache; including migraine 06-22-2014 Unclassified (6 sources) Transition into care - The patient is transitioning into care from an emergency room and a summary of care was reviewed. Note for Transition into care : reviewed by [facility] 11-20-2023 Unclassified (6 sources) [ADDITIONAL REASON] Follow up from hospital stay - Name of Hospital: [facility]. Date of Admission: 11/17/23. The patient was hospitalized for Nausea/vomiting. New medications include ondansetrone. Patient was discharged to home. Note for Follow up from hospital stay : Pt states stomach is coming around , Ondansetron effective but feels dizzy , BP was lower than usual (Saturday: 101/) 11-20-2023 Unclassified (6 sources) Cold Symptoms - Symptoms include dry cough and productive cough. The onset was gradual 5 day(s) ago. The symptoms occur constantly. The patient describes this as moderate in severity and worsening. Current treatment includes cough and cold HBP. Note for Upper respiratory infection : nausea, cough started a week agopt gets dizzy after taking pills and BP has been running low and pt also has been taking Ondanesetron HCL 4 mg that had at home and has been helping with nausea. Pt states was taking medicine at 6 am but gets nauseated after when going to eat. Pt says the dizziness is what is bothering her and it comes and goes but stomach still feels sick. reviewed by [facility] 07-10-2023 Unclassified (6 sources) MCR Well Adult - In general the patient feels well with no complaints, has good energy level and is sleeping well. The patient has a balanced diet and takes supplemental vitamins. The patient does not exercise and sleeps 8 hours per night. The patient denies having trouble with bathing, dressing/grooming, toileting, preparing meals and ambulating. The patient denies having trouble with grocery shopping, driving, use of telephone, housework, laundry, preparing/taking medications and finances. The patient has a Healthcare Power of Cpr Instructor and a Living Will. 04-09-2023 Unclassified (6 sources) Multiple complaints - The onset of the complaints has been acute , and they have been occurring for 4 days. The course has been increasing. The complaints are described as moderate. There has been associated cough, headache and nausea. Note for Multiple complaints : No fevers at home. 09-11-2022 Unclassified (5 sources) Follow up consultation - The patient is here to follow-up after Emergency Room/Urgent Care ([facility] with syncope/dehydration/diar wan/vomiting.) on : (07-06-22). Note for Consultation follow-up : Is feeling better. No vomiting or diarrhea. reviewed by [facility] 07-10-2022 Unclassified (5 sources) [ADDITIONAL REASON] Transition into care - The patient is transitioning into care from an emergency room and a summary of care was reviewed. 07-10-2022 Unclassified (5 sources) [ADDITIONAL REASON] Transition into care - The patient is transitioning into care from a hospital and a summary of care was reviewed. 05-07-2022 Unclassified (6 sources) Follow up consultation - The patient is here to follow-up after Emergency Room/Urgent Care ([facility] with rectal bleeding.) on : (08-20-21). Note for Consultation follow-up : Went to bathroom yesterday and had bright red blood in toilet. Has not had bleeding since. reviewed by [facility] 08-21-2021 Unclassified (6 sources) Cold Symptoms - Symptoms include sneezing, nasal congestion, runny nose, ear fullness, sore throat (says her glands fell swollen), productive cough and general malaise (very fatigued), but do not include ear pain, fever, chills, headache or facial pain. The onset was gradual 4 day(s) ago. The symptoms occur constantly. The patient describes this as moderate in severity and worsening. Current treatment includes non-prescription cold medication (coricidin). Risk factors do not include smoking. The patient has not been exposed to an individual with a cough, an individual with an upper respiratory infection, an individual with similar symptoms, an individual with strep or secondhand smoke. Medical history includes asthma and tonsillectomy, but patient denies history of seasonal allergies, recurrent sinusitis, recurrent strep pharyngitis or recurrent ear infections. 03-30-2021 Unclassified (6 sources) Abdominal pain - The onset of the abdominal pain has been gradual and has been occurring in an intermittent pattern for 5 days (approx.). The course has been recurrent (will notice with certain movements or if she pushes with her hand on the area). The pain is described as a pressure sensation (like a twinge , not painful per pt). The pain is located in the right lower quadrant and does not radiate. The symptoms have no aggravating factors but have no relieving factors. There has been no associated abdominal distention, bloating, bloody stools, constipation, diarrhea, dysuria, fever, nausea, vomiting or weight loss. Note for Abdominal pain : Wanted to have her urine checked today to r/o UTI. Patient denies any urinary symptoms or history of recurrent UTIs. 01-31-2021 Unclassified (6 sources) Well adult female - The patient feels well with no complaints, has decreased energy level and is sleeping poorly (gets up to go to the bathroom many times2-3x a night). The patient has a balanced diet. The patient exercises none (walks to get the mail every once inawhile). The patient sleeps 7 hours per night. Note for Well adult female : laci 12/17/19labs printed 04-19-2020 Unclassified (8 sources) Pre-operative clearance - Surgical procedure(s) planned: other (left hip replacement). Date of procedure: (12/30/2019) Surgeon: (carmelita) and Location of procedure: ([facility]) Previous problems include none (pt has never had eother- so unsure). 12-17-2019 Unclassified (6 sources) Knee Pain - The onset of the knee pain has been acute and has been occurring in a persistent pattern for 1 week. The course has been increasing. The knee pain is moderate in the right knee. The knee pain is characterized as a dull aching. The knee pain is aggravated by twisting, squatting, kneeling and stairs. The symptoms have been associated with joint swelling, painful ROM and decreased ROM. Note for Knee pain : Had a right knee injection on 09-14-19. Had improved and started with pain a swelling a week ago. 10-26-2019 Unclassified (6 sources) Knee Pain - The onset of the knee pain has been acute and has been occurring in a persistent pattern for 1 week. The course has been worsening. The knee pain is moderate in the right knee. The knee pain is characterized as a dull aching. The knee pain is described as being located in the entire knee. The knee pain is aggravated by physical activity. The knee pain is relieved by rest. The symptoms have been associated with muscle stiffness, joint swelling, instability and painful ROM. 09-15-2019 Unclassified (6 sources) Hip pain - The onset of the hip pain has been gradual (many months) and has been occurring in a persistent pattern for 6 months. The course has been constant. The hip pain is described as being a moderate dull aching located in the hip. The pain is aggravated by any movement. Relieving factors include rest and medication (tylenol arthiritis). 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 Previous medications have included Tylenol. Note for Hip pain : leaving for vacation and wants some relief 05-01-2019 Unclassified (6 sources) [facility] Well Adult - In general the patient feels well with no complaints, has decreased energy level and is sleeping well. The patient has a balanced diet and takes no supplemental vitamins & iron. The patient does not exercise and sleeps 8 hours per night. The patient denies having trouble with bathing, dressing/grooming, toileting, preparing meals and ambulating. The patient denies having trouble with grocery shopping, driving, use of telephone, housework, laundry, preparing/taking medications and finances. The patient does not perform monthly breast self exam. Note for [facility] Well Adult : LACI 01/23/2018labs printedhas not gotten shingrix yet. Patient denies any unusual chest pain or SOB. Her blood pressure today is good at 134/72. Patient reports of back pain while getting up from the bed. She has no family history of breast cancer. She states of irritable bowel syndrome occasionally. Otherwise, no other questions or concerns. 03-27-2019 Unclassified (6 sources) Rash - The onset of the rash has been acute and has been occurring in a persistent pattern for 4 days. The course has been increasing. The rash is characterized as red. The rash was first seen on the lower extremity. There has been associated itching. 05-12-2018 Unclassified (6 sources) [facility] Well Adult - In general the patient feels well with minor complaints, has decreased energy level (reports that she does not have alot of energy at times) and is sleeping well (does wake up during the night to go to the bathroom). The patient has a balanced diet and takes supplemental vitamins. The patient does not exercise and sleeps 8 hours per night. The patient denies having trouble with bathing, dressing/grooming, toileting, preparing meals and ambulating. The patient denies having trouble with grocery shopping, driving, use of telephone, housework, laundry, preparing/taking medications and finances. The patient performs monthly self breast exam (occasionally). The patient has a Healthcare Power of Cpr Instructor and a Living Will. Note for [facility] Well Adult : LACI 03/25/2017. Labs printed (Lipid and BMP) 10-01-2017 Unclassified (6 sources) follow up - Patient had called into the office with complaints of dizziness. Patient was advised to hold the Losartan to see if that would resolve the dizziness. Patient did notice a significant improvement with her dizziness in holding the Losartan. Patient checked bp at home frequently and has those readings with her today. Patient denies chest pain, shortness of breath, vision changes and headaches. 2016 Unclassified (6 sources) [facility] Well Adult - In general the patient feels well with no complaints, has decreased energy level and is sleeping well. The patient has a balanced diet and takes supplemental vitamins. The patient does not exercise and sleeps 7 hours per night. Over the past 2 weeks, the patient has not been feeling down, depressed, or hopeless or feeling little interest or pleasure in doing things. The patient denies having trouble with bathing, dressing/grooming, toileting, preparing meals and ambulating. The patient denies having trouble with grocery shopping, driving, use of telephone, housework, laundry, preparing/taking medications and finances. The patient does not perform monthly breast self exam. The patient denies falling more than once in the past 12 months. The patient has a Living Will, but does not have Healthcare Power of Cpr Instructor. 09-17-2016 Unclassified (6 sources) Skin Lesion - The skin lesion appeared rapidly and has been occurring for 1 week. It has been increasing in size. The lesion is characterized as red and bluish. The lesion is located on the upper extremity (bilateral). 09-29-2015 Unclassified (6 sources) [ADDITIONAL REASON] Chest pain - The onset of the pain has been gradual. The pain is described as a mild tightness. The pain is described as being located in the substernal area and does not radiate. The pain is precipitated by eating. Note for Chest pain : has had in the past and started Diltiazem which has helped in the past. Symptoms are variable. 09-29-2015 Unclassified (6 sources) Rash - The onset of the rash has been gradual and has been occurring in a persistent pattern for 2 days. The course has been increasing. The rash is characterized as red and raised above the skin. The rash was first seen on the face. It spread to the lower extremity. There has been associated itching and pain. There has been associated itching. Note for Rash : reviewed by [facility] 06-13-2015 Unclassified (6 sources) Rash - The onset of the rash has been gradual (could feel it coming on.) and has been occurring in a persistent pattern for 3 days. The course has been increasing. The rash is characterized as red and raised above the skin. The rash was first seen on the face and the upper extremity. It spread to the face and the upper extremity. There has been associated itching and drainage. There has been associated itching. 05-02-2015 Unclassified (6 sources) Foot pain - The pain is in the left foot and is located in the heel. The onset of the foot pain was acute and has been occurring in an intermittent pattern for 2 weeks. The course has been without change. The pain is moderate. The pain is characterized as a sharp stabbing. The pain has been relieved by rest. There have been no previous diagnostic tests. There have been no previous evaluations. 03-04-2015 Unclassified (6 sources) Recheck Blood Pressure - Was here for a routine visit 08-03-14. Had increase in blood pressure. Discontinued lisinopril, amiodarone and metoprolol. Started Diltiazem 120mg, losartan 100mg and Flecainide 50mg. Denies any side effects of current medications. blood pressure was 140/72 at home. 08-09-2014 Unclassified (6 sources) Elevated blood pressure - Patient is currently taking Lisinopril 20mg twice a day and Metoprolol 50mg twice a day for hypertension. Her fruit peeler, Dr. Dowell, increased her Lisinopril to 20mg twice a day from 10mg once a day, at her office visit on 07/20/14. Patient is to follow up with him in 4 months. Patient complains of her bp being elevated recently. BP's ranging 138-209/64-98. Patient admits to increased chest tightness/heaviness and increased shortness of breath. Patient denies any increase in headaches, vision changes, or dizziness. 08-03-2014 Unclassified (6 sources) [ADDITIONAL REASON] Transition into care - The patient is transitioning into care from a hospital and a summary of care was reviewed . 06-22-2014 Unclassified (6 sources) recheck bp - Pt had med change 4 weeks ago and is in today to recheck blood pressure, pt states blood pressures are a lot better since med change. 04-08-2014 Unclassified (6 sources) Elevated blood pressure - Patient complains of her blood pressure being elevated yesterday and this morning. Home blood pressure readings have been ranging 141-220/64-111. Patient complains of feeling somewhat sluggish and nervous feeling but denies chest pain, shortness of breath, headache, vision changes, and dizziness. 03-08-2014 Unclassified (6 sources) MCR Well Adult - In general the patient feels well with minor complaints (nosebleeds weekly for the past several weeks. Patient is on Xarelto.), has decreased energy level and is sleeping well. The patient has a balanced diet and takes supplemental vitamins. The patient exercises weekly and sleeps 8 hours per night. Over the past 2 weeks, the patient has not been feeling down, depressed, or hopeless or feeling little interest or pleasure in doing things. The patient denies having trouble with bathing, dressing/grooming, toileting, preparing meals and ambulating. The patient denies having trouble with grocery shopping, driving, use of telephone, housework, laundry, preparing/taking medications and finances. The first day of the last menstrual period was : (menopause). The patient performs monthly self breast exam. 01-26-2014 Unclassified (6 sources) Cold Symptoms - Symptoms include sneezing, nasal congestion, runny nose (drainage has been a thin light green color), scratchy throat, dry cough, fever, general malaise and headache, but do not include ear pain or sore throat. The onset was sudden 2 day(s) ago. The symptoms occur constantly. The patient describes this as moderate in severity and worsening. Current treatment includes non-prescription cold medication (mucinex). The patient has not been exposed to an individual with similar symptoms. Medical history includes seasonal allergies, but patient denies history of recurrent sinusitis, recurrent strep pharyngitis, asthma, tonsillectomy or recurrent ear infections. Note for Upper respiratory infection : Sinus congestion - no pain, just pressure. Says it has been really hard for her to sleep due to the cough. No energy. No achiness of chills. She was hoarse this morning. Some shortness of breath. 04-02-2013 Unclassified (6 sources) Eye symptoms - The onset of the eye symptoms has been sudden and has been occurring in a persistent pattern for 1 day. The course has been gradually improving. The eye symptoms are described as moderate and involve the left eye. The symptoms are described as itching, drainage and swelling. There has been no associated eye pain. Note for Eye symptoms : Pt has a history of seasonal allergies but says she hasn't had anything like this before. 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 Doesn't really have any itching now but says it was really bad last night. Denies change in vision. No crusting or drainage this morning. 03-27-2013 Unclassified (1 source) [ADDITIONAL REASON] Follow up consultation - The patient is here to follow-up after hospitalization ([facility] with syncope.) on : (05-02-22 to 05-03-22). Note for Consultation follow-up : Continues with occasional dizziness which is worse in the morning. She was felt to be orthostatic, heart rhythm was normal. 05-07-2022 Unclassified (1 source) Transition into care - The patient is transitioning into care from an emergency room and a summary of care was reviewed. 07-10-2022 Unclassified (1 source) [ADDITIONAL REASON] Follow up consultation - The patient is here to follow-up after Emergency Room/Urgent Care ([facility] with syncope/dehydration/diar wan/vomiting.) on : (07-06-22). Note for Consultation follow-up : Is feeling better. No vomiting or diarrhea. reviewed by [facility] 07-10-2022 Results Test Name Value Interpretation Reference Range Facil ity Vital Signs Date Time Vital Sign Value Performing Clinician Faci [email or web address] 11-20-2023 13:02-0500 Body weight 71.22 kg Srikanth Roth LPN [id number] 11-20-2023 13:02-0500 Diastolic blood pressure 72 mm[Hg] Srikanth Roth LPN [facility] [employer] [facility] Encounters Encounter Date Encounter Type Care Provider Facility Start: 11-26-2023 End: 11-26-2023 Medication Deven Dunaway MD Work Phone: [facility]. Start: 11-21-2023 End: 11-22-2023 Orders Deven Dunaway MD Work Phone: [facility]. Start: 11-21-2023 Review Deven Dunaway MD Work Phone: [facility]. Start: 11-20-2023 End: 11-20-2023 Office outpatient visit 15 minutes Deven Dunaway MD Work Phone: [facility]. Start: 10-14-2023 End: 10-14-2023 Office outpatient visit 15 minutes Deven Dunaway MD Work Phone: [facility]. Start: 09-16-2023 End: 09-16-2023 Orders Deven Dunaway MD Work Phone: [facility]. Start: 07-10-2023 End: 07-10-2023 Office outpatient visit 15 minutes Deven Dunaway MD Work Phone: [facility]. Start: 07-01-2023 End: 07-01-2023 Office outpatient visit 15 minutes Deven Dunaway MD Work Phone: [facility]. Start: 05-06-2023 End: 05-06-2023 Orders Deven Dunaway MD Work Phone: [facility]. Start: 04-09-2023 End: 04-09-2023 Periodic preventive med est patient 65yrs& older Deven Dunaway MD Work Phone: [facility]. Start: 04-01-2023 End: 04-01-2023 Orders Deven Dunaway MD Work Phone: [facility]. Start: 02-28-2023 End: 02-28-2023 Orders Deven Dunaway MD Work Phone: [facility]. Start: 02-04-2023 End: 02-04-2023 Orders Deven Dunaway MD Work Phone: [facility]. Start: 11-22-2022 End: 11-22-2022 Telephone follow-up Deven Dunaway MD Work Phone: [facility] Start: 11-22-2022 End: 11-22-2022 Office outpatient visit 15 minutes Deven Dunaway MD Work Phone: [facility]. Start: 11-15-2022 End: 11-15-2022 Telephone follow-up Deven Dunaway MD Work Phone: [facility]. Start: 11-15-2022 End: 11-15-2022 Medication Deven Dunaway MD Work Phone: [facility]. Start: 11-14-2022 End: 11-14-2022 Emergency department patient visit [facility] Start: 10-30-2022 End: 10-30-2022 Orders Deven Dunaway MD Work Phone: [facility]. Start: 10-04-2022 End: 10-04-2022 Office outpatient visit 15 minutes Deven Dunaway MD Work Phone: [facility]. Start: 09-11-2022 End: 09-11-2022 Office outpatient visit 15 minutes Deven Dunaway MD Work Phone: [facility]. Start: 07-11-2022 End: 07-11-2022 Medication Deven Dunaway MD Work Phone: [facility]. Start: 07-10-2022 End: 07-10-2022 Office outpatient visit 15 minutes Deven Dunaway MD Work Phone: [facility]. Start: 05-31-2022 End: 05-31-2022 Orders Deven Dunaway MD Work Phone: [facility]. Start: 05-21-2022 End: 05-21-2022 ambulatory [facility] Start: 05-07-2022 End: 05-07-2022 Office outpatient visit 15 minutes Deven Dunaway MD Work Phone: [facility]. Start: 04-17-2022 End: 04-17-2022 ambulatory DEVEN DUNAWAY [facility] Start: 04-03-2022 End: 04-03-2022 Periodic preventive med est patient 65yrs& older Deven Dunaway MD Work Phone: [facility] Start: 03-26-2022 End: 03-26-2022 Orders Deven Dunaway MD Work Phone: [facility]. Start: 03-21-2022 End: 03-21-2022 Orders Dveen Dunaway MD Work Phone: [facility]. Start: 03-07-2022 End: 03-08-2022 Orders Deven Dunaway MD Work Phone: [facility]. Start: 02-13-2022 End: 02-13-2022 Orders Deven Dunaway MD Work Phone: [facility] Start: 11-06-2021 End: 11-06-2021 Medication Deven Dunaway MD Work Phone: [facility] Start: 10-16-2021 End: 10-16-2021 Office outpatient visit 25 minutes Deven Dunaway MD Work Phone: [facility] Start: 08-24-2021 End: 08-24-2021 Telephone follow-up Deven Dunaway MD Work Phone: [facility] Start: 08-21-2021 End: 08-21-2021 Office outpatient visit 15 minutes Deven Dunaway MD Work Phone: [facility] Start: 05-30-2021 End: 05-30-2021 Orders Deven Dunaway MD Work Phone: [facility]. Start: 04-04-2021 End: 04-04-2021 Medication Deven Dunaway MD Work Phone: [facility] Start: 03-30-2021 End: 03-30-2021 Office outpatient visit 15 minutes Deven Dunaway MD Work Phone: [facility] Start: 03-03-2021 End: 03-03-2021 Office outpatient visit 25 minutes Deven Dunaway MD Work Phone: [facility]. Start: 02-27-2021 End: 03-01-2021 Orders Deven Dunaway MD Work Phone: [facility]. Start: 01-31-2021 End: 01-31-2021 Office outpatient visit 10 minutes Deven Dunaway MD Work Phone: [facility]. Start: 10-26-2020 End: 10-27-2020 Office outpatient visit 25 minutes Deven Dunaway MD Work Phone: [facility]. Start: 04-19-2020 End: 04-19-2020 Periodic preventive med est patient 65yrs& older Deven Dunaway MD Work Phone: [facility]. Start: 03-28-2020 End: 03-28-2020 Orders Deven Dunaway MD Work Phone: [facility]. Start: 03-24-2020 End: 03-24-2020 Orders Deven Dunaway MD Work Phone: [facility]. Start: 12-17-2019 End: 12-17-2019 Office outpatient visit 25 minutes Deven Dunaway MD Work Phone: [facility] Start: 12-17-2019 End: 12-17-2019 Preprocedural examination done Deven Dunaway MD Work Phone: [facility]; [facility]. Start: 10-26-2019 End: 10-26-2019 Office outpatient visit 15 minutes Deven Dunaway MD Work Phone: [facility]. Start: 09-28-2019 End: 09-29-2019 Office outpatient visit 25 minutes Deven Dunaway MD Work Phone: [facility]. Start: 09-14-2019 End: 09-15-2019 Office outpatient visit 15 minutes Deven Dunaway MD Work Phone: [facility]. Start: 08-06-2019 End: 08-06-2019 Nursing evaluation of patient and report Deven Dunaway MD Work Phone: [facility] Start: 05-01-2019 End: 05-01-2019 Office outpatient visit 25 minutes Deven Dunaway MD Work Phone: [facility]. Start: 03-27-2019 End: 03-27-2019 Periodic preventive med est patient 65yrs& older Deven Dunaway MD Work Phone: [facility]. Start: 03-20-2019 End: 03-24-2019 Orders Deven Dunaway MD Work Phone: [facility]. Start: 02-24-2019 End: 02-24-2019 Orders Deven Dunaway MD Work Phone: [facility]. Start: 01-15-2019 End: 01-15-2019 Medication Deven Dunaway MD Work Phone: [facility]. Start: 09-04-2018 End: 09-04-2018 Nursing evaluation of patient and report Deven Dunaway MD Work Phone: [facility] Start: 05-12-2018 End: 05-12-2018 Office outpatient visit 15 minutes Deven Dunaway MD Work Phone: [facility]. Start: 01-23-2018 End: 01-23-2018 Office outpatient visit 25 minutes Deven Dunaway MD Work Phone: [facility] Start: 10-01-2017 End: 10-01-2017 Periodic preventive med est patient 65yrs& older Deven Dunaway MD Work Phone: [facility]. Start: 09-24-2017 End: 09-26-2017 Orders Deven Dunaway MD Work Phone: [facility]. Start: 07-08-2017 End: 07-08-2017 Historical Summary Deven Dunaway MD Work Phone: [facility] Start: 06-13-2017 End: 06-13-2017 Orders Deven Dunaway MD Work Phone: [facility]. Start: 06-06-2017 End: 06-06-2017 Historical Summary Deven Dunaway MD Work Phone: [facility]. Start: 03-25-2017 End: 03-25-2017 Office outpatient visit 25 minutes Deven Dunaway MD Work Phone: [facility]. Start: 2016 End: 2016 Patient encounter procedure Deven Dunaway MD Work Phone: [facility]. Start: 09-17-2016 End: 09-17-2016 Patient encounter procedure Deven Dunaway MD Work Phone: [facility]. Start: 09-10-2016 End: 09-10-2016 Orders Deven Dunaway MD Work Phone: [facility]. Start: 08-14-2016 End: 08-15-2016 Orders Deven Dunaway MD Work Phone: [facility]. Start: 07-19-2016 End: 07-20-2016 Patient encounter procedure Deven Dunaway MD Work Phone: [facility]. Start: 01-16-2016 End: 01-16-2016 Office outpatient visit 25 minutes Deven Dunaway MD Work Phone: [facility]. Start: 01-13-2016 End: 01-13-2016 Historical Summary Deven Dunaway MD Work Phone: [facility]. Start: 01-09-2016 End: 01-09-2016 Orders Deven Dunaway MD Work Phone: [facility]. Start: 10-11-2015 End: 10-11-2015 Historical Summary Deven Dunaway MD Work Phone: [facility]. Start: 09-29-2015 End: 09-29-2015 Office outpatient visit 15 minutes Deven Dunaway MD Work Phone: [facility]. Start: 08-16-2015 End: 08-16-2015 Office outpatient visit 15 minutes Deven Dunaway MD Work Phone: [facility]. Start: 06-13-2015 End: 06-13-2015 Office outpatient visit 15 minutes Deven Dunaway MD Work Phone: [facility] Start: 05-06-2015 End: 05-06-2015 Medication Deven Dunaway MD Work Phone: [facility]. Start: 05-02-2015 End: 05-02-2015 Patient encounter procedure Deven Dunaway MD Work Phone: [facility]. Start: 03-17-2015 End: 03-18-2015 Orders Deven Dunaway MD Work Phone: [facility]. Start: 03-04-2015 End: 03-04-2015 Patient encounter procedure Deven Dunaway MD Work Phone: [facility]. Start: 02-15-2015 End: 02-15-2015 Office outpatient visit 15 minutes Deven Dunaway MD Work Phone: [facility] Start: 08-09-2014 End: 08-09-2014 Patient encounter procedure Deven Dunaway MD Work Phone: [facility] Start: 08-05-2014 End: 08-05-2014 Nursing evaluation of patient and report Deven uDnaway MD Work Phone: [facility] Start: 08-03-2014 End: 08-03-2014 Office outpatient visit 25 minutes Deven Dunaway MD Work Phone: [facility] Start: 06-21-2014 End: 06-22-2014 Patient encounter procedure Deven Dunaway MD Work Phone: [facility]. Start: 06-18-2014 End: 06-18-2014 Medication Deven Dunaway MD Work Phone: [facility]. Start: 04-08-2014 End: 04-08-2014 Patient encounter procedure Deven Dunaway MD Work Phone: [facility] Start: 03-08-2014 End: 03-08-2014 Patient encounter procedure Deven Dunaway MD Work Phone: [facility] Start: 01-26-2014 End: 01-26-2014 Patient encounter procedure [facility] Dunaway MD [facility] Start: 01-21-2014 End: 01-21-2014 Orders Deven Dunaway MD [facility] Phone: [facility] Start: 04-02-2013 End: 04-02-2013 Patient encounter procedure Deven Dunaway MD Work Phone: [facility] Start: 03-27-2013 End: 03-27-2013 Patient encounter procedure Deven Dunaway MD Work Phone: [facility] Gail Lepe RN [facility]; [facility] Procedures Date Procedure Procedure Detail Performing Clinician Start: 09-16-2023 End: 09-16-2023 Dexamethasone sodium phos Deven Dunaway MD Work Phone: Start: 05-06-2023 End: 05-06-2023 Dexamethasone sodium phos Deven Dunaway MD Work Phone: Start: 04-09-2023 End: 04-09-2023 Adv care pln/ no alt dcsn mkr docd or refusal Deven Dunaway MD Work Phone: Start: 04-09-2023 End: 04-09-2023 Depression screening Deven Dunaway MD Work Phone: Start: 04-09-2023 End: 04-09-2023 Falls risk assessment documented Deven Dunaway MD Work Phone: Start: 04-09-2023 End: 04-09-2023 PPPS, subseq visit Deven Dunaway MD Work Phone: Start: 04-09-2023 End: 04-09-2023 Pt falls assess docd 2/> falls/fall w/injury/yr Deven Dunaway MD Work Phone: Start: 04-09-2023 End: 04-09-2023 Scr dep neg, no plan reqd Deven Dunaway MD Work Phone: Start: 04-01-2023 End: 04-01-2023 Lab findings surveillance Jodi jasso [facility] Plan of Treatment Date Care Activity Detail Author Start: 04-15-2024 Patient encounter procedure Medical; PHYSICAL - AW[facility]. Start: 15-Apr-2024 9:50 MD Deven Dunaway Appointment Request [facility]. Start: 04-07-2024 Nursing evaluation o f patient and report Medical; Nurse visit - fasting labs - [facility]. Start: 07-Apr-2024 8:40 NURSE, FLOAT Appointment Request [facility]. dexAMETHasone so d phos (bulk) 100 % powder Ordered: 02-May-2015 MD Justice Rodriguez Intent [facility] [employer] [facility]. dexAMETHasone so d phos (bulk) 100 % powder Ordered: 13-Feb-2022 MD Deven Dunaway Intent [facility]. dexAMETHasone so d phos (bulk) 100 % powder Ordered: 31-May-2022 MD Deven Dunaway Intent [facility]. dexAMETHasone so d phos (bulk) 100 % powder Ordered: 30-Oct-2022 MD Deven Dunaway Intent [facility]. dexAMETHasone so d phos (bulk) 100 % powder Ordered: 04-Feb-2023 MD Deven Dunaway Intent [facility]. dexAMETHasone so d phos (bulk) 100 % powder Ordered: 06-May-2023 MD Deven Dunaway Intent [facility]. dexAMETHasone so d phos (bulk) 100 % powder Ordered: 16-Sep-2023 MD Deven Dunaway Intent [facility]. Immunizations Immunization Date Immunization Notes Care Provider Fa cility 08-20-2023 Seasonal, quadrivale nt, recombinant, injectable influenza vaccine, preservative free Deven Dunaway MD Work Phone: [facility] Payers Date Payer Category Payer Unknown [id number] 1945 Unknown [id number] 1945 Unknown [id number] Medicare [id number] Social History Date Type Detail Facility Alcohol Use: Alcohol Use: ; 7 or fewer drinks per week. [facility]; [facility] Caffeine Use Caffeine Use [facility]; [facility] Current Work/Study Status: Horacio garcia Work/Study Status: ; Retired. [facility]; [facility] Marital status: Marital status: ; . [facility]; [facility] Tobacco Use: Tobacco Use: ; N ever smoker. [facility]; [facility] Female [facility]; [facility]. Work Phone: Full-time [facility]; [facility] Work Phone: Never smoked tobacco [facility]; [facility] Work Phone: Retired [facility]; [facility]. Work Phone: [facility]; [facility] Work Phone: Summary Purpose Family History Coronary Artery Disease Status:Active Comments :Mother. Father. Both of MIs in their 80s Diabetes Mellitus Type II Status:Active Commen ts:Mother. Hypertension Status:Active Comments:Father. Macular Degeneration Status:Active Comments:Mo ther. Coronary Artery Disease Status:Active Comments :Mother. Father. Both of MIs in their 80s Diabetes Mellitus Type II Status:Active Commen ts:Mother. Hypertension Status:Active Comments:Father. Macular Degeneration Status:Active Comments:Mo ther. Coronary Artery Disease Status:Active Comments :Mother. Father. Both of MIs in their 80s Diabetes Mellitus Type II Status:Active Commen ts:Mother. Hypertension Status:Active Comments:Father. Macular Degeneration Status:Active Comments:Mo ther. Coronary Artery Disease Status:Active Comments :Mother. Father. Both of MIs in their 80s Diabetes Mellitus Type II Status:Active Commen ts:Mother. Hypertension Status:Active Comments:Father. Macular Degeneration Status:Active Comments:Mo ther. Coronary Artery Disease Status:Active Comments :Mother. Father. Both of MIs in their 80s Diabetes Mellitus Type II Status:Active Commen ts:Mother. Hypertension Status:Active Comments:Father. Macular Degeneration Status:Active Comments:Mo ther. Coronary Artery Disease Status:Active Comments :Mother. Father. Both of MIs in their 80s Diabetes Mellitus Type II Status:Active Commen ts:Mother. Hypertension Status:Active Comments:Father. Macular Degeneration Status:Active Comments:Mo ther. Advance Directives No Advanced Directives Records FoundNo Advanced Directives Records Found Additional Source Comments INFORMATION SOURCE (unrecogn ized section and content) DATE CREATED AUTHOR AUTHOR'S ORGANIZ ATION 04/03/2023 [facility] FOR RECORDS PERTAINING TO PATIENTS WHO ARE OR HAVE BEEN ENROLLED IN A CHEMICAL DEPENDENCY/SUBSTANCEABUSE PROGRAM, SOME INFORMATION MAY BE OMITTED. This clinical summary was aggregated from multiple sources. Caution should be exercised in using it in the provision of clinical care. This summary normalizes information from multiple sources, and as a consequence, information in this document may materially change the coding, format and clinical context of patient data. In addition, data may be omitted in some cases. CLINICAL DECISIONS SHOULD BE BASED ON THE PRIMARY CLINICAL RECORDS. [employer] provides no warranty or guarantee of the accuracy or completeness of information in this document.
[2023-11-28 06:52] LABS: Anion Gap 7 (5-15); BUN 11 mg/dL (7-18); BUN/Creat Ratio 10.4 RATIO (10-20); Calcium,Total 8.8 mg/dL (8.5-10.1); Chloride 99 mmol/L (98-107); Creatinine, Serum 1.06 mg/dL (0.55-1.02); EST Glomerular Filtration Rate 53 mL/min (>60); Est Glom Filt Rate - Afr Amer 64 mL/min (>60); Estimated Creatinine Clearance 41.16 ml/min; Glucose 110 mg/dL (74-106); Potassium 3.3 mmol/L (3.5-5.1); Sodium Level 137 mmol/L (136-145); Troponin-I HS 16 pg/mL (3.0-54.0)
[2023-11-28] MEDS: dilTIAZem 60 MG Tablet PO (08:13)
[2023-11-28] MEDS: Labetalol (Prefilled) 20 MG/4 ML 10 MG IV (09:47)
== END 2023-11-28 10:38 | disposition home or self-care (01) ==
PROVIDERS: Emergency Provider Emergency Medicine; PCP Family Medicine; Visit Provider Emergency Medicine
DX: R55 Syncope and collapse (principal); I48.0 Paroxysmal atrial fibrillation; S61.411A Laceration without foreign body of right hand, initial encounter; R11.0 Nausea; I10 Essential (primary) hypertension; Z79.01 Long term (current) use of anticoagulants; S61.412A Laceration without foreign body of left hand, initial encounter; S09.8XXA Other specified injuries of head, initial encounter; E78.5 Hyperlipidemia, unspecified; Z79.899 Other long term (current) drug therapy; Z96.649 Presence of unspecified artificial hip joint; R05.9 Cough, unspecified; X58.XXXA Exposure to other specified factors, initial encounter; Y93.89 Activity, other specified; Y92.89 Other specified places as the place of occurrence of the external cause
CPT/HCPCS: 70450; 71046; 80048; 84484; 85025; 87631; 93005; 96361; 96374; 99284; J7030; A4216

== ENCOUNTER 2023-11-30 08:53 | Emergency (ER) | payer MEDICARE, SELFPAY ==
[2023-11-30 08:54] VITALS: BP 146/78; PULSE 64; RESP 14; TEMP 36.4; O2SAT 97; BMI 24.3
--- OUTSIDE RECORDS SUMMARY | 2023-11-30 09:24 | XMS RPT_ITS | CCD ---
Author Name Unknown Address [address] [place] [address] Organization [facility] Care Team Providers Care Inspector Precision Name Role Phone DEVEN DUNAWAY Referring Unavailable [...] Unavailable PROVIDER, UNKNOWN Consulting Unavailable DEVEN DUNAWAY Consulting Unavailable LINDA CORNELL MD Admitting Unavailable LINDA CORNELL MD Attending Unavailable LINDA CORNELL MD Primary Care Unavailable PROVIDER, UNKNOWN Consulting Unavailable PROVIDER, UNKNOWN Consulting Unavailable PROVIDER, UNKNOWN Consulting Unavailable Deven Dunaway MD Unavailable Dr. Maricel Lloyd MD Unavailable [facility]) Unavailable Dr. Shakeel Lloyd MD Unavailable [phone] Gilda Tadeo MD ([place]) Unavailable Dr. Gavin Sena DO Unavailable [phone] Dr. Rena Rios DPM Unavailable Julio Cesar EATON, Anusha Deleon Unavailable [phone] Jenny Soriano MA Unavailable Unavailable Gogoi (scribe), Hemanta Unavailable Unavaila Rena Turcios LPN Unavailable Unavailable Justice Rodriguez MD Unavailable Debbie Varghese Unavailable Unavailable Annette Mari TANG Unavailable Unavaila ble Luis A EXPERIMENTAL DISPLAY BUILDER, Marsha Unavailable Unavailable Sherley JEFFERSON, Gail Yap Unavailable Unavaila ble Gonzalez EXPERIMENTAL DISPLAY BUILDER, Srikanth Unavailable Unavailable [facility] ([facility] Raphael Unavailable Unavailab celestina De La Rosa RN, Sunshine Burks Unavailable Unavailable Mutersbaugh EXPERIMENTAL DISPLAY BUILDER, Ani K Unavailable Unavai paul Brewer PA-C, Tala Deleon Unavailable Victor Hugo ([facility]), Cj Unavailable Unavailab le Brandan EXPERIMENTAL DISPLAY BUILDER, Batool Ludwig Unavailable Unavailab celestina Deninsey EXPERIMENTAL DISPLAY BUILDER, Jodi West Unavailable Unavailab celestina Dsouza MA, Marsha Unavailable Unavailable Wengererik EXPERIMENTAL DISPLAY BUILDER, Jana Unavailable Unavailabl e Harpal EXPERIMENTAL DISPLAY BUILDER, Samina N Unavailable Unavaila ble Unavailable Unavailable Kaitlin EXPERIMENTAL DISPLAY BUILDER, Teena Unavailable Medications Current Medications Medication Drug Class(es) Dates Sig (Normalized) Sig (Original) atorvastatin 20 mg oral tablet (18 sources) HMG-CoA Reductase Inhibitor Start: 09-12-2023 atorvastatin 20 mg tablet ; 1 (one) Tablet qhs for 0 days Quantity: 90 {Tablet} Refills: 1 Ordered: 12-Sep-2023 MD Deven Dunaway Start: 12-Sep-2023 12 hr dilTIAZem hydrochloride 60 mg extended release oral capsule (18 sources) Calcium Channel Laura Start: 11-26-2023 dilTIAZem ER 60 mg capsule,extended release 12 hr ; 1 (one) Capsule two times daily for 0 days Quantity: 120 {Capsule} Refills: 5 Ordered: 26-Nov-2023 MD Deven Dunaway Start: 26-Nov-2023 Comments: pharmacist: DOSE change to 60mg ER bid Completed/Discontinued Medications Medication Drug Class(es) Dates Sig (Normalized) Sig (Original) 8 hr acetaminophen 650 mg extended release oral tablet (9 sources) Start: 10-26-2020 End: 01-31-2021 take 2 tablets by mouth every eight hours for pain Acetaminophen ER 650 MG Oral Tablet Extended Release ; 2 (two) Tablet every eight hours for pain for 0 days Quantity: 180 {Tablet} Refills: 3 Ordered: 31-Jan-2021 LI Lepe Start: 26-Oct-2020 End: 31-Jan-2021 Status: Inactive [id number] 200 actuat albuterol 0.09 mg/actuat metered dose inhaler (9 sources) beta2-Adrenergic Agonist Start: 04-02-2013 End: 01-26-2014 [...] Date Documented Da te Episodic/Chronic Abdominal pain (9 sources) Abdominal pain; Translations: [Unspecified abdominal pain] 01-31-2021 Episodic Acute bronchitis (18 sources) Acute bronchitis; Translations: [Acute bronchitis, unspecified] Onset: 1 03-30-2021 Episodic Allergic reactions (20 sources) Contact dermatitis; Translations: [Unspecified contact dermatitis, unspecified cause] 10-26-2020 Episodic Cardiac dysrhythmias (20 sources) Paroxysmal atrial fibrillation; Translations: [Paroxysmal atrial fibrillation] 11-20-2023 Chronic Chronic obstructive pulmonary disease and bronchiectasis (20 sources) Bronchitis; Translations: [Bronchitis, not specified as acute or chronic] 07-10-2023 Episodic Conditions associated with dizziness or vertigo (20 sources) Vertigo; Translations: [Dizziness and giddiness] 07-10-2023 Episodic Disorders of lipid metabolism (20 sources) Hyperlipoproteinemia; Translations: [Hyperlipidemia, unspecified] 11-20-2023 Chronic Essential hypertension (20 sources) Hypertensive disorder; Translations: [Essential (primary) hypertension] Onset: 0 11-20-2023 Chronic Gastrointestinal hemorrhage (9 sources) Gastrointestinal hemorrhage; Translations: [Hemorrhage of anus and rectum] 08-21-2021 Episodic Genitourinary symptoms and ill-defined conditions (20 sources) Nocturia; Translations: [Nocturia] 11-20-2023 Episodic Hemorrhoids (18 sources) External hemorrhoids; Translations: [Residual hemorrhoidal skin tags] 11-20-2023 Episodic Immunizations and screening for infectious disease (20 sources) Needs influenza immunization; Translations: [Encounter for immunization] 09-17-2016 Episodic Inflammation; infection of eye (except that caused by tuberculosis or sexually transmitteddisease) (18 sources) Conjunctivitis, unspecified 10-26-2020 Episodic Influenza (18 sources) Influenza due to Influenza A virus; Translations: [Influenza due to other identified influenza virus with other respiratory manifestations] 11-22-2022 Episodic Nausea and vomiting (20 sources) Nausea; Translations: [Nausea] 07-11-2022 Episodic Noninfectious gastroenteritis (20 sources) Gastroenteritis; Translations: [Noninfective gastroenteritis and colitis, unspecified] 11-20-2023 Episodic Nonspecific chest pain (18 sources) Chest pain on exertion; Translations: [Chest pain, unspecified] 10-26-2020 Episodic Nutritional deficiencies (20 sources) Iron deficiency; Translations: [Iron deficiency] 11-20-2023 Episodic Osteoarthritis (20 sources) Osteoarthritis of knee; Translations: [Osteoarthritis of knee, unspecified] 11-20-2023 Chronic Other and unspecified benign neoplasm (18 sources) Polyp of colon; Translations: [Polyp of colon] 11-20-2023 Episodic Other circulatory disease (20 sources) Orthostatic hypotension; Translations: [Orthostatic hypotension] 10-26-2020 Episodic Other circulatory disease (9 sources) Ecchymosis; Translations: [Hemorrhage, not elsewhere classified] 09-29-2015 Episodic Other connective tissue disease (20 sources) Plantar fasciitis; Translations: [Plantar fascial fibromatosis] 10-26-2020 Episodic Other ear and sense organ disorders (18 sources) Impacted cerumen 10-26-2020 Episodic Other gastrointestinal disorders (18 sources) Occult blood in stools; Translations: [Other fecal abnormalities] 10-26-2020 Episodic Other lower respiratory disease (13 sources) Cough; Translations: [Cough] 11-20-2023 Episodic Other non-traumatic joint disorders (9 sources) Hip pain; Translations: [Pain in unspecified [...] of breast] 10-26-2020 Episodic Other skin disorders (18 sources) Seborrheic keratosis; Translations: [Other seborrheic keratosis] 10-26-2020 Episodic Peripheral and visceral atherosclerosis (9 sources) Intermittent claudication; Translations: [Peripheral vascular disease, unspecified] 07-20-2016 Chronic Pneumonia (except that caused by tuberculosis or sexually transmitted disease) (9 sources) Pneumonia; Translations: [Pneumonia, unspecified organism] 11-15-2022 Episodic Residual codes; unclassified (20 sources) Insomnia; Translations: [Insomnia, unspecified] 11-20-2023 Episodic Residual codes; unclassified (18 sources) Sedentary lifestyle; Translations: [Other specified personal risk factors, not elsewhere classified] 10-26-2020 Episodic Retinal detachments; defects; vascular occlusion; and retinopathy (18 sources) Degenerative disorder of macula ; Translations: [Unspecified macular degeneration] 10-26-2020 Chronic Sprains and strains (9 sources) Strain of knee; Translations: [Strain of unspecified muscle(s) and tendon(s) at lower leg level, right leg, initial encounter] 09-15-2019 Episodic Syncope (9 sources) Syncope; Translations: [Syncope and collapse] 05-07-2022 Episodic Unclassified (9 sources) Number of Children 04-08-2023 Past or Other Problems Problem Classification Problem Date Documented Da te Episodic/Chronic Conditions associated with dizziness or vertigo (16 sources) Conditions associated with dizziness or vertigo 07-01-2023 Headache; including migraine (9 sources) Headache; including migraine 06-22-2014 Unclassified (8 sources) Transition into care - The patient is transitioning into care from an emergency room and a summary of care was reviewed. Note for Transition into care : reviewed by [facility] 11-20-2023 Unclassified (8 sources) [ADDITIONAL REASON] Follow up from hospital stay - Name of Hospital: [facility]. Date of Admission: 11/17/23. The patient was hospitalized for Nausea/vomiting. New medications include ondansetrone. Patient was discharged to home. Note for Follow up from hospital stay : Pt states stomach is coming around , Ondansetron effective but feels dizzy , BP was lower than usual (Saturday: 101/) 11-20-2023 Unclassified (9 sources) Cold Symptoms - Symptoms include dry [...] but stomach still feels sick. reviewed by [facility] 07-10-2023 Unclassified (9 sources) MCR Well Adult - In general [...] The patient has a Healthcare Power of Learning Development Specialist and a Living Will. 04-09-2023 Unclassified (9 sources) Multiple complaints - The onset of the complaints has been acute , and they have been occurring for 4 days. The course has been increasing. The complaints are described as moderate. There has been associated cough, headache and nausea. Note for Multiple complaints : No fevers at home. 09-11-2022 Unclassified (8 sources) Follow up consultation - The patient is here to follow-up after Emergency Room/Urgent Care ([facility] with syncope/dehydration/diar wan/vomiting.) on : (07-06-22). Note for Consultation follow-up : Is feeling better. No vomiting or diarrhea. reviewed by [facility] 07-10-2022 Unclassified (8 sources) [ADDITIONAL REASON] Transition into care - The patient is transitioning into care from an emergency room and a summary of care was reviewed. 07-10-2022 Unclassified (7 sources) [ADDITIONAL REASON] Transition into care - The patient is transitioning into care from a hospital and a summary of care was reviewed. 05-07-2022 Unclassified (9 sources) Follow up consultation - The patient is here to follow-up after Emergency Room/Urgent Care ([facility] with rectal bleeding.) on : (08-20-21). Note for Consultation follow-up : Went to bathroom yesterday and had bright red blood in toilet. Has not had bleeding since. reviewed by [facility] 08-21-2021 Unclassified (9 sources) Cold Symptoms - Symptoms include sneezing, [...] pharyngitis or recurrent ear infections. 03-30-2021 Unclassified (9 sources) Abdominal pain - The onset of [...] or history of recurrent UTIs. 01-31-2021 Unclassified (9 sources) Well adult female - The patient [...] female : laci 12/17/19labs printed 04-19-2020 Unclassified (12 sources) Pre-operative clearance - Surgical procedure(s) planned: other (left hip replacement). Date of procedure: (12/30/2019) Surgeon: (carmelita) and Location of procedure: ([place]) Previous problems include none (pt has never had eother- so unsure). 12-17-2019 Unclassified (9 sources) Knee Pain - The onset of [...] a swelling a week ago. 10-26-2019 Unclassified (9 sources) Knee Pain - The onset of [...] swelling, instability and painful ROM. 09-15-2019 Unclassified (9 sources) Hip pain - The onset of [...] vacation and wants some relief 05-01-2019 Unclassified (9 sources) [facility] Well Adult - In general the patient [...] perform monthly breast self exam. Note for [facility] Well Adult : LACI 01/23/2018labs printedhas not gotten shingrix yet. Patient denies any unusual chest pain or SOB. Her blood pressure today is good at 134/72. Patient reports of back pain while getting up from the bed. She has no family history of breast cancer. She states of irritable bowel syndrome occasionally. Otherwise, no other questions or concerns. 03-27-2019 Unclassified (9 sources) Rash - The onset of the rash has been acute and has been occurring in a persistent pattern for 4 days. The course has been increasing. The rash is characterized as red. The rash was first seen on the lower extremity. There has been associated itching. 05-12-2018 Unclassified (9 sources) [facility] Well Adult - In general the patient [...] The patient has a Healthcare Power of Learning Development Specialist and a Living Will. Note for [facility] Well Adult : LACI 03/25/2017. Labs printed (Lipid and BMP) 10-01-2017 Unclassified (9 sources) follow up - Patient had called [...] breath, vision changes and headaches. 2016 Unclassified (9 sources) [facility] Well Adult - In general the patient [...] but does not have Healthcare Power of Learning Development Specialist. 09-17-2016 Unclassified (9 sources) Skin Lesion - The skin lesion appeared rapidly and has been occurring for 1 week. It has been increasing in size. The lesion is characterized as red and bluish. The lesion is located on the upper extremity (bilateral). 09-29-2015 Unclassified (9 sources) [ADDITIONAL REASON] Chest pain - The [...] the past. Symptoms are variable. 09-29-2015 Unclassified (9 sources) Rash - The onset of the [...] Rash : reviewed by [facility] 06-13-2015 Unclassified (9 sources) Rash - The onset of the [...] There has been associated itching. 05-02-2015 Unclassified (9 sources) Foot pain - The pain is [...] have been no previous evaluations. 03-04-2015 Unclassified (9 sources) Recheck Blood Pressure - Was here for a routine visit 08-03-14. Had increase in blood pressure. Discontinued lisinopril, amiodarone and metoprolol. Started Diltiazem 120mg, losartan 100mg and Flecainide 50mg. Denies any side effects of current medications. blood pressure was 140/72 at home. 08-09-2014 Unclassified (9 sources) Elevated blood pressure - Patient is currently taking Lisinopril 20mg twice a day and Metoprolol 50mg twice a day for hypertension. Her call out clerk, Dr. Dowell, increased her Lisinopril to 20mg [...] headaches, vision changes, or dizziness. 08-03-2014 Unclassified (9 sources) [ADDITIONAL REASON] Transition into care - The patient is transitioning into care from a hospital and a summary of care was reviewed . 06-22-2014 Unclassified (9 sources) recheck bp - Pt had med change 4 weeks ago and is in today to recheck blood pressure, pt states blood pressures are a lot better since med change. 04-08-2014 Unclassified (9 sources) Elevated blood pressure - Patient complains of her blood pressure being elevated yesterday and this morning. Home blood pressure readings have been ranging 141-220/64-111. Patient complains of feeling somewhat sluggish and nervous feeling but denies chest pain, shortness of breath, headache, vision changes, and dizziness. 03-08-2014 Unclassified (9 sources) MCR Well Adult - In general [...] performs monthly self breast exam. 01-26-2014 Unclassified (9 sources) Cold Symptoms - Symptoms include sneezing, [...] morning. Some shortness of breath. 04-02-2013 Unclassified (9 sources) Eye symptoms - The onset of [...] crusting or drainage this morning. 03-27-2013 Unclassified (2 sources) [ADDITIONAL REASON] Follow up consultation - The patient is here to follow-up after hospitalization ([facility] with syncope.) on : (05-02-22 to 05-03-22). [...] here to follow-up after Emergency Room/Urgent Care ([facility] with syncope/dehydration/diar wan/vomiting.) on : (07-06-22). Note for Consultation follow-up : Is feeling better. No vomiting or diarrhea. reviewed by [facility] 07-10-2022 Unclassified (1 source) Follow up from hospital stay - Name of Hospital: [facility]. Date of Admission: 11/17/23. The patient was hospitalized for Nausea/vomiting. New medications include ondansetrone. Patient was discharged to home. Note for Follow up from hospital stay : Pt states stomach is coming around , Ondansetron effective but feels dizzy , BP was lower than usual (Saturday: 101/61) 11-20-2023 Unclassified (1 source) [ADDITIONAL REASON] Transition into care - The patient is transitioning into care from an emergency room and a summary of care was reviewed. Note for Transition into care : reviewed by [facility] 11-20-2023 Results Test Name Value Interpretation Reference Range Facil ity Vital Signs Date Time Vital Sign Value Performing Clinician Dat oliver 11-20-2023 13:02-0500 Body weight 71.22 kg Srikanth Roth LPN [facility]. 11-20-2023 13:02-0500 Diastolic blood pressure 72 mm[Hg] Srikanth Roth LPN [facility]. Encounters Encounter Date Encounter Type Care Provider Facility Start: 11-26-2023 End: 11-26-2023 Medication Deven Dunaway MD Work Phone: [facility]. Start: 11-21-2023 End: 11-22-2023 Orders Deven Dunaway MD Work Phone: [facility]. Start: 11-21-2023 Review Deven Dunaway MD Work Phone: [facility]. Start: 11-20-2023 End: 11-20-2023 Office outpatient visit 15 minutes Deven Dunaway MD Work Phone: [facility]. Start: 10-14-2023 End: 10-14-2023 Office outpatient visit 15 minutes Deven Dunaway MD Work Phone: [facility]. Start: 09-16-2023 End: 09-16-2023 Orders Deven Dunaway MD Work Phone: [facility]. Start: 07-10-2023 End: 07-10-2023 Office outpatient visit 15 minutes Deven Dunaway MD Work Phone: [facility]. Start: 07-01-2023 End: 07-01-2023 Office outpatient visit 15 minutes Deven Dunaway MD Work Phone: [facility]. Start: 05-06-2023 End: 05-06-2023 Orders Deven Dunaway MD Work Phone: [facility]. Start: 04-09-2023 End: 04-09-2023 Periodic preventive med est patient 65yrs& older Deven Dunaway MD Work Phone: [facility]. Start: 04-01-2023 End: 04-01-2023 Orders Deven Dunaway MD Work Phone: [facility]. Start: 02-28-2023 End: 02-28-2023 Orders Deven Dunaway MD Work Phone: [facility]. Start: 02-04-2023 End: 02-04-2023 Orders Deven Dunaway MD Work Phone: [facility]. Start: 11-22-2022 End: 11-22-2022 Telephone follow-up Deven Dunaway MD Work Phone: [facility]. Start: 11-22-2022 End: 11-22-2022 Office outpatient visit 15 minutes Deven Dunaway MD Work Phone: [facility]. Start: 11-15-2022 End: 11-15-2022 Telephone follow-up Deven Dunaway MD Work Phone: [facility]. Start: 11-15-2022 End: 11-15-2022 Medication Deven Dunaway MD Work Phone: [facility]. Start: 11-14-2022 End: 11-14-2022 Emergency department patient visit DEVEN DUNAWAY [facility] Start: 10-30-2022 End: 10-30-2022 Orders Deven Dunaway MD Work Phone: [facility]. Start: 10-04-2022 End: 10-04-2022 Office outpatient visit 15 minutes Deven Dunaway MD Work Phone: [facility]. Start: 09-11-2022 End: 09-11-2022 Office outpatient visit 15 minutes Deven Dunaway MD Work Phone: [facility]. Start: 07-11-2022 End: 07-11-2022 Medication Deven Dunaway MD Work Phone: [facility]. Start: 07-10-2022 End: 07-10-2022 Office outpatient visit 15 minutes Deven Dunaway MD Work Phone: [facility]. Start: 05-31-2022 End: 05-31-2022 Orders Deven Dunaway MD Work Phone: [facility]. Start: 05-21-2022 End: 05-21-2022 ambulatory [facility] Start: 05-07-2022 End: 05-07-2022 Office outpatient visit 15 minutes Deven Dunaway MD Work Phone: [facility]. Start: 04-17-2022 End: 04-17-2022 ambulatory [facility] Start: 04-03-2022 End: 04-03-2022 Periodic preventive med est patient 65yrs& older Deven Dunaway MD Work Phone: [facility]. Start: 03-26-2022 End: 03-26-2022 Orders Deven Dunaway MD Work Phone: [facility]. Start: 03-21-2022 End: 03-21-2022 Orders Deven Dunaway MD Work Phone: [facility]. Start: 03-07-2022 End: 03-08-2022 Orders Deven Dunaway MD Work Phone: [facility]. Start: 02-13-2022 End: 02-13-2022 Orders Deven Dunaway MD Work Phone: [facility]. Start: 11-06-2021 End: 11-06-2021 Medication Deven Dunaway MD Work Phone: [facility]. Start: 10-16-2021 End: 10-16-2021 Office outpatient visit 25 minutes Deven Dunaway MD Work Phone: [facility]. Start: 08-24-2021 End: 08-24-2021 Telephone follow-up Deven Dunaway MD Work Phone: [facility]. Start: 08-21-2021 End: 08-21-2021 Office outpatient visit 15 minutes Deven Dunaway MD Work Phone: [facility]. Start: 05-30-2021 End: 05-30-2021 Orders Deven Dunaway MD Work Phone: [facility]. Start: 04-04-2021 End: 04-04-2021 Medication Deven Dunaway MD Work Phone: [facility]. Start: 03-30-2021 End: 03-30-2021 Office outpatient visit 15 minutes Deven Dunaway MD Work Phone: [facility]. Start: 03-03-2021 End: 03-03-2021 Office outpatient visit 25 minutes Deven Dunaway MD Work Phone: [facility]. Start: 02-27-2021 End: 03-01-2021 Orders Deven Dunaway MD Work Phone: [facility]. Start: 01-31-2021 End: 01-31-2021 Office outpatient visit 10 minutes Deven Dunaway MD Work Phone: [facility]. Start: 10-26-2020 End: 10-27-2020 Office outpatient visit 25 minutes Deven Dunaway MD Work Phone: [facility]. Start: 04-19-2020 End: 04-19-2020 Periodic preventive med est patient 65yrs& older Deven Dunaway MD Work Phone: [facility]. Start: 03-28-2020 End: 03-28-2020 Orders Deven Dunaway MD Work Phone: [facility]. Start: 03-24-2020 End: 03-24-2020 Orders Deven Dunaway MD Work Phone: [facility]. Start: 12-17-2019 End: 12-17-2019 Office outpatient visit 25 minutes Deven Dunaway MD Work Phone: [facility] Start: 12-17-2019 End: 12-17-2019 Preprocedural examination done Deven Dunaway MD Work Phone: [facility] Start: 10-26-2019 End: 10-26-2019 Office outpatient visit 15 minutes Deven Dunaway MD Work Phone: [facility]. Start: 09-28-2019 End: 09-29-2019 Office outpatient visit 25 minutes Deven Dunaway MD Work Phone: [facility] Start: 09-14-2019 End: 09-15-2019 Office outpatient visit 15 minutes Deven Dunaway MD Work Phone: [facility] Start: 08-06-2019 End: 08-06-2019 Nursing evaluation of patient and report Deven Dunaway MD Work Phone: [facility]. Start: 05-01-2019 End: 05-01-2019 Office outpatient visit 25 minutes Deven Dunaway MD Work Phone: [facility] Start: 03-27-2019 End: 03-27-2019 Periodic preventive med est patient 65yrs& older Deven Dunaway MD Work Phone: [facility]. Start: 03-20-2019 End: 03-24-2019 Orders Deven Dunaway MD Work Phone: [facility]. Start: 02-24-2019 End: 02-24-2019 Orders Deven Dunaway MD Work Phone: [facility]. Start: 01-15-2019 End: 01-15-2019 Medication Deven Dunaway MD Work Phone: [facility]. Start: 09-04-2018 End: 09-04-2018 Nursing evaluation of patient and report Deven Dunaway MD Work Phone: [facility] Start: 05-12-2018 End: 05-12-2018 Office outpatient visit 15 minutes Deven Dunaway MD Work Phone: [facility] Start: 01-23-2018 End: 01-23-2018 Office outpatient visit 25 minutes Deven Dunaway MD Work Phone: [facility] Start: 10-01-2017 End: 10-01-2017 Periodic preventive med est patient 65yrs& older Deven Dunaway MD Work Phone: [facility]. Start: 09-24-2017 End: 09-26-2017 Orders Deven Dunaway MD Work Phone: [facility]. Start: 07-08-2017 End: 07-08-2017 Historical Summary Deven Dunaway MD Work Phone: [facility]. Start: 06-13-2017 End: 06-13-2017 Orders Deven Dunaway MD Work Phone: [facility]. Start: 06-06-2017 End: 06-06-2017 Historical Summary Deven Dunaway MD Work Phone: [facility]. Start: 03-25-2017 End: 03-25-2017 Office outpatient visit 25 minutes Deven Dunaway MD Work Phone: [facility] Start: 2016 End: 2016 Patient encounter procedure Deven Dunaway MD Work Phone: [facility] Start: 09-17-2016 End: 09-17-2016 Patient encounter procedure Deven Dunaway MD Work Phone: [facility]. Start: 09-10-2016 End: 09-10-2016 Orders Deven Dunaway MD Work Phone: [facility] Start: 08-14-2016 End: 08-15-2016 Orders Deven Dunaway MD Work Phone: [facility]. Start: 07-19-2016 End: 07-20-2016 Patient encounter procedure Deven Dunaway MD Work Phone: [facility] Start: 01-16-2016 End: 01-16-2016 Office outpatient visit 25 minutes Deven Dunaway MD Work Phone: [facility] Start: 01-13-2016 End: 01-13-2016 Historical Summary Deven Dunaway MD Work Phone: [facility] Start: 01-09-2016 End: 01-09-2016 Orders Deven Dunaway MD Work Phone: [facility] Start: 10-11-2015 End: 10-11-2015 Historical Summary Deven Dunaway MD Work Phone: [facility] Start: 09-29-2015 End: 09-29-2015 Office outpatient visit 15 minutes Deven Dunaway MD Work Phone: [facility]. Start: 08-16-2015 End: 08-16-2015 Office outpatient visit 15 minutes Deven Dunaway MD Work Phone: [employer]. Start: 06-13-2015 End: 06-13-2015 Office outpatient visit 15 minutes Deven Dunaway MD Work Phone: [employer]. Start: 05-06-2015 End: 05-06-2015 Medication Deven Dunaway MD Work Phone: [employer]. Start: 05-02-2015 End: 05-02-2015 Patient encounter procedure Deven Dunaway MD Work Phone: [employer]. Start: 03-17-2015 End: 03-18-2015 Orders Deven Dunaway MD Work Phone: [employer]. Start: 03-04-2015 End: 03-04-2015 Patient encounter procedure Deven Dunaway MD Work Phone: [employer]. Start: 02-15-2015 End: 02-15-2015 Office outpatient visit 15 minutes Deven Dunaway MD Work Phone: [employer]. Start: 08-09-2014 End: 08-09-2014 Patient encounter procedure Deven Dunaway MD Work Phone: [employer]. Start: 08-05-2014 End: 08-05-2014 Nursing evaluation of patient and report Deven Dunaway MD Work Phone: [employer]. Start: 08-03-2014 End: 08-03-2014 Office outpatient visit 25 minutes Deven Dunaway MD Work Phone: [employer] Start: 06-21-2014 End: 06-22-2014 Patient encounter procedure Deven Dunaway MD Work Phone: [employer] Start: 06-18-2014 End: 06-18-2014 Medication Deven Dunaway MD Work Phone: [employer]. Start: 04-08-2014 End: 04-08-2014 Patient encounter procedure Deven Dunaway MD Work Phone: [employer] Start: 03-08-2014 End: 03-08-2014 Patient encounter procedure Deven Dunaway MD Work Phone: [employer] Start: 01-26-2014 End: 01-26-2014 Patient encounter procedure Deven Dunaway MD Work Phone: [employer]. Start: 01-21-2014 End: 01-21-2014 Orders Deven Dunaway MD Work Phone: [employer] Start: 04-02-2013 End: 04-02-2013 Patient encounter procedure Deven Dunaway MD Work Phone: [employer] Start: 03-27-2013 End: 03-27-2013 Patient encounter procedure Deven Dunaway MD Work Phone: [employer] [facility] Gail Lepe RN [employer] Procedures Date Procedure Procedure Detail Performing Clinician [...] End: 04-01-2023 Lab findings surveillance Jodi jasso [employer] Plan of Treatment Date Care Activity Detail Author Start: 04-15-2024 Patient encounter procedure Medical; PHYSICAL - AWV [employer]. Start: 15-Apr-2024 9:50 MD Deven Dunaway Appointment Request [employer]. Start: 04-07-2024 Nursing evaluation o f patient and report Medical; Nurse visit - fasting labs - SFB [employer]. Start: 07-Apr-2024 8:40 NURSE, FLOAT Appointment Request [facility]. Start: 12-03-2023 Patient encounter procedure Medical; RTN OFFICE VISIT - ER f/u 11/28, [facility] , fell, hit head [facility]. Start: 03-Dec-2023 9:10 MD Deven Dunaway Appointment Request [facility]. dexAMETHasone so d phos (bulk) 100 % powder Ordered: 02-May-2015 MD Justice Rodriguez Intent [employer] dexAMETHasone so d phos (bulk) 100 % powder Ordered: 13-Feb-2022 MD Deven Dunaway [employer] dexAMETHasone so d phos (bulk) 100 % powder Ordered: 31-May-2022 MD Deven Dunaway [employer] dexAMETHasone so d phos (bulk) 100 % powder Ordered: 30-Oct-2022 MD Deven Dunaway [employer] dexAMETHasone so d phos (bulk) 100 % powder Ordered: 04-Feb-2023 MD Deven Dunaway Intent [facility] [employer] [facility].; [employer] dexAMETHasone so d phos (bulk) 100 % powder Ordered: 06-May-2023 MD Deven Dunaway [facility].; [employer] dexAMETHasone so d phos (bulk) 100 % powder Ordered: 16-Sep-2023 [facility] [employer] Immunizations Immunization Date Immunization Notes Care Provider Fa cility 08-20-2023 Seasonal, quadrivale nt, recombinant, injectable influenza vaccine, preservative free Deven Dunaway MD Work Phone: [employer] Payers Date Payer Category Payer Unknown [id number] 1945 Unknown [id number] 1945 Unknown [id number] Medicare [id number] Social History Date Type Detail Facility Alcohol Use: Alcohol Use: ; 7 or fewer drinks per week. [employer]. Caffeine Use Caffeine Use [facility] [employer]. Current Work/Study Status: Horacio garcia Work/Study Status: ; Retired. [employer]. Marital status: Marital status: ; . [employer]. Tobacco Use: Tobacco Use: ; N ever smoker. [employer]. Female [facility] [employer] Work Phone: Full-time [facility] [employer]. Work Phone: Never smoked tobacco [employer]. Work Phone: Retired [employer]. Work Phone: [employer]. Work Phone: Summary Purpose Family History Coronary [...] BE BASED ON THE PRIMARY CLINICAL RECORDS. [employer] provides no warranty or guarantee of the accuracy or completeness of information in this document.
--- NOTE | 2023-11-30 09:44 | RAD_ITS ---
INDICATION: pain EXAMINATION/TECHNIQUE: X-RAY - XR Hip Unilateral with Pelvis when performed; 2-3 Views COMPARISON: No relevant prior comparison study available FINDINGS: PELVIC BONES: No displaced fracture, destructive or sclerotic lesions. Note that overlapping bowel shadows may however obscure fine detail. Sacroiliac joints are unremarkable. No widening of the pubic symphysis. HIPS: Narrowing of the right hip joint. Left hip arthroplasty. No displaced fracture seen. SOFT TISSUES: Vascular calcifications. RAD/HIP, UNI W/ Pelvis 2-3 Views IMPRESSION: No evidence of displaced pelvic or hip fracture. Electronically Signed: Bill Santiago MD at 10:21 EST ,
--- NOTE | 2023-11-30 10:36 | ED.VIS.LOWEX ---
HPI History of Present Illness Chief Complaint: Lower Extremity Injury Narrative Narrative: 78-year-old female presenting after mechanical fall on the fourth. She states that time she was evaluated but did not have any hip pain. She states she has had her left hip replaced and started to have hip pain after she went home. She is ambulatory with antalgic gait. She states she has had some issues with the left leg since her surgery. She has some chronic numbness and tingling in the leg. She describes the pain is all anterior on the left hip. [facility] Medical History Afib Chronic anticoagulation Essential hypertension History of atrial fibrillation Hyperlipidemia Influenza A Osteoarthritis Paroxysmal atrial fibrillation Home Medications diltiazem HCl 120 mg capsule,extended release 12 hr 120 mg PO Q12H heart rate 05/02/22 [History Last Taken 11/16/22] flecainide 50 mg tablet 50 mg PO Q12H heart rate 05/02/22 [History Last Taken 11/16/22] rivaroxaban 20 mg tablet (Xarelto) 20 mg PO DAILY blood thinner 05/02/22 [History Last Taken 11/15/22] lutein 20 mg capsule 20 mg PO DAILY eyes 11/14/22 [History Last Taken 11/13/22] multivitamin 1 tab PO DAILY supplment 11/14/22 [History Last Taken 11/13/22] atorvastatin 20 mg tablet 20 mg PO QHS 06/10/23 [History Last Taken Unknown] ondansetron 4 mg disintegrating tablet 4 mg PO Q8H PRN PRN Nausea #10 tabs 11/17/23 [Rx Last Taken Unknown] tramadol 50 mg tablet 50 mg PO Q8H PRN pain #12 tabs 11/30/23 [Rx Last Taken Unknown] Allergy/AdvReac Type Severity Reaction Status Date / Time No Known Allergies Allergy Verified 06/10/23 12:59 Family History Mother Heart disease Diabetes Myocardial infarction Macular degeneration CAD (coronary artery disease) Father CAD (coronary artery disease) Myocardial infarction Hypertension Brother Cancer Surgical History History of colonoscopy History of electrophysiologic study (12/04/12) History of hip replacement Hx of tonsillectomy Social History household members: spouse Smoking Status: Never smoker alcohol intake: current alcohol intake frequency: holidays/special occasions only substance use type: does not use caffeine: Yes Type: coffee Number of servings: 2 ROS ROS ED Constitutional Constitutional ED: Denies chills, fever(s) or sweats Eyes Eyes: Denies blurry vision or change in vision ENT ENT ED: Denies ear pain or sore throat Cardiovascular Cardiovascular: Denies chest pain, palpitations or racing heartbeat Respiratory/Chest Respiratory/Chest: Denies cough, dyspnea or sputum Gastrointestinal Gastrointestinal: Denies abdominal pain, constipation, diarrhea, nausea or vomiting Genitourinary Genitourinary ED: Denies dysuria, hematuria or urinary frequency Musculoskeletal Musculoskeletal: Reports other Details: Left hip pain ; Denies arthralgias, myalgias or neck pain Integumentary Denies abscess, Abrasions or rash Neurologic Neurologic: Denies headache(s), paresthesias or weakness Psychiatric Psychiatric: Denies anxiety, depression, suicidal ideation or suicidal thoughts Endocrine Endocrinology: Denies polydipsia or polyuria EXAM Physical Exam Const Vital Signs: 11/30/23 08:54 Temperature 97.6 F L Temperature Source Temporal Pulse Rate 64 Respiratory Rate 14 Blood Pressure 146/78 H Blood Pressure Mean 100 Pulse Ox 97 Oxygen Delivery Method Room Air Positive well nourished HEENT Reports moist mucous membranes Resp normal respiratory effort Cardio regular rate and regular rhythm Extremity Extremity Narrative: Tenderness to palpation over left proximal anterior thigh. No bruising, erythema, edema. Patient able to flex her hip up off the bed without much difficulty. Negative logroll of the left hip. No tenderness over the greater trochanter or posteriorly. Extensor mechanism is intact. Neuro oriented x3 Sensorium / Orientation: alert Motor Exam: strength 5/5 throughout MDM MDM MDM Narrative Medical decision making narrative: Patient presenting with hip pain. She states it started hurting after she got home after her previous evaluation. She is concerned she might of injured this as she has had a hip replacement. Patient had x-ray of the left hip which on my interpretation is no acute fracture or subluxation. Prosthesis looks to be in place. Patient reports something more for pain for home so I gave her tramadol. She will be given a prescription for this for home. Return precautions were discussed. Impression: 1. Left hip pain 2. Fall Radiography Diagnostic Testing: Clinical Impression(s) from Imaging Studies Hip/Pelvis X-Ray 11/30/23 09:44 IMPRESSION: No evidence of displaced pelvic or hip fracture. Electronically Signed: Bill Santiago MD at 10:21 EST , Discharge Plan Triage Chief Complaint: Lower Extremity Injury ED Provider: Cirilo Oropeza Dx/Rx/DC Orders Instructions: ED Hip Contusion Prescriptions: New tramadol 50 mg tablet 50 mg PO Q8H PRN (Reason: pain) Qty: 12 0RF No Action atorvastatin 20 mg tablet 20 mg PO QHS Patient Comments: TAKE 1 TABLET BY MOUTH AT BEDTIME diltiazem HCl 120 mg Capsule,Extended Release 12 Hr 120 mg PO Q12H flecainide 50 mg Tablet 50 mg PO Q12H Xarelto 20 mg Tablet 20 mg PO DAILY multivitamin Tablet 1 tab PO DAILY lutein 20 mg Capsule 20 mg PO DAILY Rx Instructions: give with meal/snack ondansetron 4 mg tablet,disintegrating 4 mg PO Q8H PRN PRN (Reason: Nausea) Qty: 10 0RF Primary Care Provider: Deven Dunaway Referrals: Deven Dunaway MD [Primary Care Provider] - Disposition Disposition: Home, Self Care
[2023-11-30] MEDS: traMADol 50 MG Tablet PO (11:10)
== END 2023-11-30 11:17 | disposition home or self-care (01) ==
PROVIDERS: Emergency Provider Student in an Organized Health Care Education/Training Program; PCP Family Medicine; Visit Provider Student in an Organized Health Care Education/Training Program
DX: M25.552 Pain in left hip (principal); I48.0 Paroxysmal atrial fibrillation; Z96.642 Presence of left artificial hip joint; I10 Essential (primary) hypertension; E78.5 Hyperlipidemia, unspecified; Z79.899 Other long term (current) drug therapy; Z79.01 Long term (current) use of anticoagulants; W19.XXXA Unspecified fall, initial encounter
CPT/HCPCS: 73502; 99282

== ENCOUNTER → 2023-12-20 | Outpatient (CLI) | payer MEDICARE, SELFPAY | END | disposition home or self-care (01) | LOC: PSN 08:49 | PROVIDERS: PCP Family Medicine; Referring Provider Nurse Practitioner Family; Visit Provider Nurse Practitioner Family | DX: I48.0 Paroxysmal atrial fibrillation (principal); R42 Dizziness and giddiness | CPT/HCPCS: 93225; 93226 ==